=== PATIENT | male | born 1995 | race Two or more races ===

== ENCOUNTER 2019-10-18 21:05 | Emergency (ER) | payer MEDICAID ==
[~2019-10-18] VITALS: Ht 190.5 cm; Wt 114.7 kg
[~2019-10-18 21:05] MED LIST: DIVA-81 PO; HYDR50CA5 PO
[2019-10-18 21:21] VITALS: BP 131/80
--- NOTE | 2019-10-18 22:23 | NUR ---
pt said he needed a place to sleep for a couple of hours, unable to go to the [facility] "I was kicked out", pt is homeless, noncompliant with psych med for bipolar, paranoia, schizophrenia,
[2019-10-18] MEDS ORDERED: proCHLORperazine 10 MG/2 ml inj IM ONE (22:35)
[2019-10-18] MEDS ORDERED: SUMAtriptan succ. 6 MG/0.5ml vial SQ ONE (22:35)
[2019-10-18] MEDS ORDERED: ketorolac trometh inj. 60 MG/2 ML VIAL IM ONE (22:35)
[2019-10-18] MEDS ORDERED: acetaminophen 325mg tablet PO ONE (22:35)
--- NOTE | 2019-10-18 23:30 | NUR ---
pt escorted by security outside, pt wants to stay here and sleep, uncooperative with leaving
== END 2019-10-18 23:32 | disposition home or self-care (01) ==
LOC: ER 21:05
DX: R51 Headache (principal); F12.90 Cannabis use, unspecified, uncomplicated; R11.2 Nausea with vomiting, unspecified; Z59.0 Homelessness; Z72.89 Other problems related to lifestyle; Z88.8 Allergy status to other drugs, medicaments and biological substances; Z79.899 Other long term (current) drug therapy
CPT/HCPCS: 96372; 99284; J0780; J1885; J3030

== ENCOUNTER 2019-11-30 09:34 | Inpatient (IN) | payer MEDICAID ==
[~2019-11-30] VITALS: Ht 190.5 cm; Wt 137.6 kg
[2019-11-30] MEDS ORDERED: loperamide 2mg capsule PO PRN (11:40)
[2019-11-30] MEDS ORDERED: LORazepam 1 MG tablet PO PRN (11:40)
[2019-11-30] MEDS ORDERED: mag hydrox/Alum hydrox/simeth 30ml oral suspension PO PRN (11:40)
[2019-11-30] MEDS ORDERED: traZODone 50mg tablet PO PRN (11:40)
[2019-11-30] MEDS ORDERED: magnesium hydroxide 30ml (MOM) UD suspension PO PRN (11:40)
[2019-11-30] MEDS ORDERED: LORA2TAB96 PO (11:46)
[2019-11-30] MEDS ORDERED: PALI234D IM (11:46)
[2019-11-30] MEDS: NICOTINE POLACRILEX 2 MG LOZENGE BC PRN (12:32)
[2019-11-30] MEDS: LORazepam 1 MG tablet PO PRN ×2 (12:33→21:27)
--- NOTE | 2019-11-30 13:13 | NUR ---
Admission note: Pt admitted to [facility] for [facility] today at 1115 on a 5150 for gravely disabled. Pt has been unable to care for himself. He is unable to verbalize a viable plan for food, clothing, and longterm. Pt is responding to internal stimuli. Pt repeatedly comes to the [place] [facility] crisis unit begging for food with significant weight loss.. Pt unable to manage finances and is disheveled and unkempt. The county is seeking conservatorship and need his 5250 faxed to them at [phone] to start T-con paperwork. Pt has history of schizophrenia and bipolar..
[2019-11-30] MEDS: nicotine 21mg patch - 24 hr TD SCH (13:28)
[2019-11-30 14:22] VITALS: BP 130/78
[2019-11-30] MEDS ORDERED: diphenhydrAMINE 50 mg/ml inj ONE (14:29)
[2019-11-30] MEDS ORDERED: OLANZapine **IM** 10 mg inj. IM ONE ×2 (14:29→14:32)
[2019-11-30] MEDS ORDERED: LORazepam 2 mg/ml vial ONE (14:30)
--- NOTE | 2019-11-30 14:54 | NUR ---
Agitation: While gathering to the front door to escort pts to the patio, Tank started escalating himself. Attempted to deescalate pt but pt wants to leave and go to the library to "Smoke some weed." "Im claustraphobic." Explained to pt he can walk the halls or go to his large empty room. Pt attempted to walk out the door when security entered. Pt shouting and headed towards his room. Pt punched a hole in he hallway wall. Spoke with Dr Armstrong and gave pt IM Zyprexa 20mg. Pt accepted the shot to his R shoulder with no resistance.
[2019-11-30] MEDS: acetaminophen 325mg tablet PO PRN (15:46)
[2019-11-30] MEDS: traZODone 50mg tablet PO SCH (21:27)
[2019-11-30] MEDS: olanzapine 10mg tablet PO SCH (21:27)
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
[2019-12-01 07:03] LABS: HEMOGLOBIN A1C 5.3 % (4.5-6.2)
[2019-12-01 07:15] LABS: CHOL/HDL RATIO 3.5 (0.00-4.99); CHOLESTEROL 140 MG/DL (0-200); HDL CHOLESTEROL 40 MG/DL (35-60); LDL CHOLESTEROL 81 MG/DL (50-100); TRIGLYCERIDES 131 MG/DL (20-135)
[2019-12-01] MEDS: olanzapine 10mg tablet PO SCH ×2 (07:38→13:16)
[2019-12-01] MEDS: LORazepam 1 MG tablet PO PRN (07:39)
[2019-12-01 08:00] VITALS: BP 137/78
[2019-12-01] MEDS: nicotine 21mg patch - 24 hr TD SCH (08:00)
[2019-12-01 09:15] VITALS: BP 137/78
--- NOTE | 2019-12-01 10:00 | NUR ---
Group Therapy: Process Group This Clinicians goal for this process group were as follows: (1) Ask scaling questions about Patients current anxiety, depression, and irritability symptoms as a check-in. (2) Provide psychoeducation on differences between passive, passive-aggressive, assertive, and aggressive forms of communication. (3) Provide psychoeducation on fair fighting rules to illustrate principles of assertive communication. (4) Process Patients thoughts and reflections on this topic within the group milieu. Patient identified experiencing the following levels of anxiety, depression, and anger/irritability while present in the group milieu. Anxiety: 8.5/10 Depression: 7/10 Anger/irritability: .5/10 Patient was present at the beginning of the process group long enough to provide answers to his subjective levels of anxiety, depression, and anger/irritability. Patient was dressed in nondescript clothing that were appropriate within the milieu. Patient made comments about not wanting to be in group, very shortly after providing answers to his scaling questions about his symptoms. Patient presented as verbally intrusive, often speaking over, or interrupting this Clinician as he made comments. Patient left the room approximately 5 minutes after the start of the process group and did not return. Patient did not verbally contribute during the discussion of different kinds of communication. Keegan Ochoa MA, KAROL Addendum: 12/03/19 at 0823 by Keegan Ochoa SS Amended: Links added.
[2019-12-01] MEDS: NICOTINE POLACRILEX 2 MG LOZENGE BC PRN (10:02)
[2019-12-01] MEDS: acetaminophen 325mg tablet PO PRN (10:10)
[2019-12-01] MEDS ORDERED: LORazepam 1 MG tablet PO ONE (10:45)
[2019-12-01] MEDS ORDERED: carBAMazepine 100mg chewable tablet PO ONE (10:45)
[2019-12-01] MEDS: carBAMazepine 100mg chewable tablet PO SCH ×2 (11:02→17:30)
[2019-12-01] MEDS: LORazepam 1 MG tablet PO SCH ×2 (13:16→20:14)
[2019-12-01] MEDS: ibuprofen tablet 400 MG TABLET PO PRN (13:16)
--- NOTE | 2019-12-01 14:01 | NUR ---
Nursing Progress Note: Legal hold: 5150 Client on involuntary status for GD. Report received from Hannah GLOVER with use of SBAR. Why are they here: Pt admitted to [facility] for [facility] health today on a 5150 for gravely disabled. Pt has been unable to care for himself. He is unable to verbalize a viable plan for food, clothing, and correction. Pt is responding to internal stimuli. Pt repeatedly comes to the [facility] crisis unit begging for food with significant weight loss.. Pt unable to manage finances and is disheveled and unkempt. The county is seeking conservatorship and need his 5250 faxed to them at [phone] to start T-con paperwork. Pt has history of schizophrenia and bipolar.. Assessment What has happened this shift: Pt has been up and visible on the unit. Pt behaved hypomanic at times and angry at other times. Pt dancing wildly in the hallway. Pt very quick to agitation, primarily when someone sets a limit with him. A better strategy has been distraction. Pt at times would have a verbal outburst b/c he wants to get ont of here. Allowing to vent and providing physical touch (patting on the back) helps. Pt did take medications as prescribed. Pt has had 6mg Ativan and 20 zyprexa by 1400. Pt remains extremely labile and volatile. S/I, H/I: Denies A/VH: Hears voices and sees his parents. Sleep: Asleep at this time ADL's: may need encouragement Group attendance: no Were meds taken: Yes Any med S/E no Mental Status Exam Appearance: Disheveled Eye contact: intense at times Behavior: Some agitation Speech: Clear Mood: Anxious Affect: Anxious Thought process: Disorganized Thought Content: Not clear Cognition: May have some deficits Insight Poor Judgment: Poor Interventions PRN's used: Ativan, Zyprexa, Tylenol, ibuprofen Therapeutic interventions: 1:1 therapeutic assessment, medication administration, monitored for change in behavior, provided active listening, positive feedback, reassurance, encouragement Q15 minute safety checks. Restraints/seclusion/emergency medication: N/A Justification of Continued Inpatient Treatment: Pt need a safe and supportive environment to interrupt current crisis. Gravely disabled may require placement. Addendum: 12/01/19 at 1501 by Artie Castro RN Pt was on the phone with his old employment evaluator/case manager and he was told they are pursuing conservatorship and placement at [facility] and he became super upset and verbally yelling and crying for about 20 minutes. Pt given food and attention and eventually calmed down.
[2019-12-01 19:21] VITALS: BP 136/73
[2019-12-01] MEDS: traZODone 50mg tablet PO SCH (20:14)
--- NOTE | 2019-12-02 00:03 | NUR ---
Nursing Progress Note: Legal hold: 5150 Client on involuntary status for GD. Report received from Hannah GLOVER with use of SBAR. Why are they here: Pt admitted to [facility] for Behavioral health today on a 5150 for gravely disabled. Pt has been unable to care for himself. He is unable to verbalize a viable plan for food, clothing, and care home. Pt is responding to internal stimuli. Pt repeatedly comes to the [facility] crisis unit begging for food with significant weight loss.. Pt unable to manage finances and is disheveled and unkempt. The county is seeking conservatorship and need his 5250 faxed to them at [phone] to start T-con paperwork. Pt has history of schizophrenia and bipolar.. Assessment What has happened this shift: Pt was resting in bed at change of shift. Pt woke for evening snack and took scheduled meds. Pt denies s/i, denies a/vh and states "I just want to get out of here." S/I, H/I: Denies A/VH: denies Sleep: sleeping most of the shift ADL's: may need encouragement Group attendance: no Were meds taken: Yes Any med S/E no Mental Status Exam Appearance: Disheveled Eye contact: poor Behavior: remains in bed duration of shift, polite and cooperative during med pass Speech: Clear Mood: Anxious Affect: Anxious Thought process: Disorganized Thought Content: Not clear Cognition: impaired Insight Poor Judgment: Poor Interventions PRN's used: trazadone Therapeutic interventions: 1:1 therapeutic assessment, medication administration, monitored for change in behavior, provided active listening, positive feedback, reassurance, encouragement Q15 minute safety checks. Restraints/seclusion/emergency medication: N/A Justification of Continued Inpatient Treatment: Pt need a safe and supportive environment to interrupt current crisis. Gravely disabled may require placement.
[2019-12-02] MEDS: LORazepam 1 MG tablet PO SCH ×3 (07:20→20:50)
[2019-12-02] MEDS: olanzapine 10mg tablet PO SCH ×2 (07:20→12:03)
[2019-12-02] MEDS: carBAMazepine 100mg chewable tablet PO SCH ×3 (07:21→17:14)
[2019-12-02] MEDS: nicotine 21mg patch - 24 hr TD SCH (07:23)
[2019-12-02] MEDS: acetaminophen 325mg tablet PO PRN (07:43)
[2019-12-02 08:36] VITALS: BP 136/81
[2019-12-02] MEDS: NICOTINE POLACRILEX 2 MG LOZENGE BC PRN (13:06)
--- NOTE | 2019-12-02 14:58 | NUR ---
Nursing Progress Note: [facility] Legal hold: 5150 Client on involuntary status for GD. Report received from Hannah GLOVER with use of SBAR. Why are they here: Pt admitted to [facility] for Behavioral health today on a 5150 for gravely disabled. Pt has been unable to care for himself. He is unable to verbalize a viable plan for food, clothing, and jail. Pt is responding to internal stimuli. Pt repeatedly comes to the [facility] crisis unit begging for food with significant weight loss.. Pt unable to manage finances and is disheveled and unkempt. The county is seeking conservatorship and need his 5250 faxed to them at [phone] to start T-con paperwork. Pt has history of schizophrenia and bipolar.. Assessment What has happened this shift: Pt was on the unit and presented as loud and intrusive. Client was redirected and took his medications. Client had issues with another client on the unit this morning which required a call to Security. Client has no PRN coverage for behavioral outbursts so he was given intense 1:1 until situation was over. Client is currently resting in his bed (0923) and he will be watched closely as he is prone to outbursts with little or no warning. Client has required frequent redirection this shift for loud and intrusive behaviors. He will redirect with effort. His behaviors this shift have been unpredictable and intimidating to his peers. S/I, H/I: Denies A/VH: denies Sleep: sleeping at times this shift. ADL's: may need encouragement Group attendance: no Were meds taken: Yes Any med S/E no Mental Status Exam Appearance: Disheveled Eye contact: poor Behavior: loud, intrusive with very little insight displayed. Speech: Clear Mood: Anxious Affect: Anxious Thought process: Disorganized Thought Content: Not clear Cognition: impaired Insight Poor Judgment: Poor Interventions PRN's used: Nicotine Therapeutic interventions: 1:1 therapeutic assessment, medication administration, monitored for change in behavior, provided active listening, positive feedback, reassurance, encouragement Q15 minute safety checks. Restraints/seclusion/emergency medication: N/A Justification of Continued Inpatient Treatment: Pt need a safe and supportive environment to interrupt current crisis. Gravely disabled may require placement.
[2019-12-02 19:44] VITALS: BP 122/53
[2019-12-02] MEDS: traZODone 50mg tablet PO SCH (20:50)
--- NOTE | 2019-12-02 22:07 | NUR ---
Nursing Progress Note: [facility] Legal hold: 5150 Client on involuntary status for GD. Report received from Gelacio GLOVER with use of SBAR. Why are they here: Pt admitted to [facility] for Behavioral health today on a 5150 for gravely disabled. Pt has been unable to care for himself. He is unable to verbalize a viable plan for food, clothing, and long term. Pt is responding to internal stimuli. Pt repeatedly comes to the [facility] crisis unit begging for food with significant weight loss.. Pt unable to manage finances and is disheveled and unkempt. The county is seeking [employer] and need his 5250 faxed to them at [phone] to start T-con paperwork. Pt has history of schizophrenia and bipolar.. Assessment What has happened this shift: Pt was up walking in the hallway and listening to music at change of shift. He denies s/i, denies h/i, and declined a shower. went to his room and fell asleep. Pt was woke for his evening meds and he took them and grimaced in pain and yelled out "my tooth!" pt pointed to his upper front tooth on the left side of his mouth and states cold water hurts his tooth. Asked patient for his nicotine patch and he stated he threw it in the trash. Asked pt if I could check his back and he yelled "Get out leave me alone!" and went back to sleep. S/I, H/I: Denies A/VH: denies Sleep: sleeping most of this shift ADL's: may need encouragement Group attendance: no Were meds taken: Yes Any med S/E no Mental Status Exam Appearance: Disheveled, malodorous, declined a shower Eye contact: poor Behavior: loud, intrusive with very little insight displayed. Speech: Clear Mood: Anxious Affect: Anxious Thought process: Disorganized Thought Content: Not clear Cognition: impaired Insight Poor Judgment: Poor Interventions PRN's used: Nicotine Therapeutic interventions: 1:1 therapeutic assessment, medication administration, monitored for change in behavior, provided active listening, positive feedback, reassurance, encouragement Q15 minute safety checks. Restraints/seclusion/emergency medication: N/A Justification of Continued Inpatient Treatment: Pt need a safe and supportive environment to interrupt current crisis. Gravely disabled may require placement
[2019-12-03] MEDS: olanzapine 10mg tablet PO SCH ×3 (07:28→21:32)
[2019-12-03] MEDS: nicotine 21mg patch - 24 hr TD SCH (07:28)
[2019-12-03] MEDS: LORazepam 1 MG tablet PO SCH ×3 (07:28→20:06)
[2019-12-03 07:57] VITALS: BP 136/79
[2019-12-03] MEDS: NICOTINE POLACRILEX 2 MG LOZENGE BC PRN ×2 (08:05→12:06)
[2019-12-03] MEDS: carBAMazepine 100mg chewable tablet PO SCH ×3 (08:05→18:13)
[2019-12-03] MEDS: ibuprofen tablet 400 MG TABLET PO PRN (08:05)
[2019-12-03] MEDS ORDERED: OLANZapine **IM** 10 mg inj. IM ONE ×3 (08:15→14:20)
[2019-12-03] MEDS ORDERED: LORazepam 2 mg/ml vial ONE ×3 (08:16→14:04)
--- NOTE | 2019-12-03 08:20 | NUR ---
1:1-Emotional De-escalation Presenting Issues: Pt became loud and emotionally agitated in hallway, got into verbal [id number] w/another pt and staff, staff directed pt to his room where he continued his emotional & verbal outburst. Interventions: SS met w/pt at the doorway in his room, pt was curled up in a corner in his room crying loudly. SS joined pt on the floor and provided an opportunity for him to verbalize his distress, engaged pt in deep breathing exercise to facilitate return to a calm emotional state. Pt was able to take 8 breaths and asked to walk, left room and went to the dining lee and sat by himself. Plan: SS will continue to provide 1:1 support to facilitate emotional regulation. Sheridan Obrien LCSW Addendum: 12/03/19 at 0854 by Sheridan DORADO Amended: Links added.
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
[2019-12-03] MEDS ORDERED: haloperidol lactate 5mg/ml inj ONE (13:56)
[2019-12-03] MEDS ORDERED: benztropine 1 mg/ml 2ml ampule ONE ×2 (13:57→14:00)
[2019-12-03] MEDS ORDERED: diphenhydrAMINE 50 mg/ml inj ONE (14:04)
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
[2019-12-03] MEDS ORDERED: diphenhydrAMINE 50 mg/ml inj IM ONE (14:20)
[2019-12-03] MEDS ORDERED: LORazepam 2 mg/ml vial IM ONE (14:20)
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
--- NOTE | 2019-12-03 18:31 | NUR ---
correction: Pt. is now on a 5250.
[2019-12-03 20:00] VITALS: BP 133/85
[2019-12-03] MEDS: traZODone 50mg tablet PO SCH (20:05)
--- NOTE | 2019-12-03 22:12 | NUR ---
Nursing Progress Note: [facility] Legal hold: 5150 Client on involuntary status for GD. Report received from Kasie GLOVER with use of SBAR. Why are they here: Pt admitted to [place] for Behavioral health today on a 5150 for gravely disabled. Pt has been unable to care for himself. He is unable to verbalize a viable plan for food, clothing, and custodial. Pt is responding to internal stimuli. Pt repeatedly comes to the [place] crisis unit begging for food with significant weight loss.. Pt unable to manage finances and is disheveled and unkempt. The county is seeking [employer] and need his 5250 faxed to them at [phone] to start T-con paperwork. Pt has history of schizophrenia and bipolar.. Assessment What has happened this shift: Pt was in his room resting at change of shift, he came out of his room and got a snack. Pt was in his room eating salad with his hands from his dinner meal and his hands and arms were covered in salad dressing. Gave patient eating utensils and told him to use the fork and he whined "but I'm so hungry!" Pt finished eating and asked for more food. Pts clothes were soiled and he was offered a change of clothing. He attempted to drink his water and spilled water all over himself and began screaming loudly. Asked patient to lower his voice and provided patient with another set of dry clothing, and clean blankets as he had food crumbs and containers left in his bed. Asked patient about his day and he stated "I was sad, everyone was mean to me, I dont want to talk about it, I just want my family." Pt took his evening meds and went to bed saying "Im so tired I just want to sleep." Pt has been refusing to take off his nicotine patch stating he threw it in the garbage. I did not locate a patch in the garbage or see one on the patient. S/I, H/I: Denies A/VH: denies Sleep: sleeping most of the shift, see sleep hours ADL's: Independent with prompting. Pt need prompting to use eating utensils and change clothing. Group attendance: no Were meds taken: Yes Any med S/E: pt is tired Mental Status Exam Appearance: Disheveled Eye contact: poor Behavior: Poor boundaries, shouting out, labile and impulsive Speech: Clear Mood: Anxious, "sad" Affect: bizzare, labile Thought process: Circumstantial, delusional Thought Content: Focused on food and going home to his family Cognition: A&Ox2 Insight Poor Judgment: Poor Interventions PRN's used: trazadone Therapeutic interventions: 1:1 therapeutic assessment, medication administration, monitored for change in behavior, provided active listening, positive feedback, reassurance, encouragement Q15 minute safety checks. Restraints/seclusion/emergency medication: None Justification of Continued Inpatient Treatment: Pt need a safe and supportive environment to interrupt current crisis. Gravely disabled may require placement. Addendum: 12/04/19 at 0407 by Alyssa Pride RN Pt woke approx 3:30 am and had been incontinent of stool. Pt requested to take a shower and took a shower and was given clean clothing. Pt came to the nurses station and stated "im tired I'm going back to bed and went back to his room to sleep.
[2019-12-04] MEDS: NICOTINE POLACRILEX 2 MG LOZENGE BC PRN (05:00)
[2019-12-04] MEDS: ibuprofen tablet 400 MG TABLET PO PRN (06:37)
[2019-12-04] MEDS: LORazepam 1 MG tablet PO SCH ×3 (07:53→23:56)
[2019-12-04] MEDS: acetaminophen 325mg tablet PO PRN (07:54)
[2019-12-04] MEDS: olanzapine 10mg tablet PO SCH ×3 (07:55→23:55)
[2019-12-04] MEDS: nicotine 21mg patch - 24 hr TD SCH (07:58)
[2019-12-04 08:00] VITALS: BP 129/76
[2019-12-04] MEDS ORDERED: carBAMazepine 100mg chewable tablet PO SCH ×2 (08:30→12:30)
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
[2019-12-04] MEDS ORDERED: quetiapine 100mg tablet PO ONE (11:05)
[2019-12-04] MEDS: quetiapine 100mg tablet PO SCH ×3 (12:13→23:56)
[2019-12-04] MEDS: carBAMazepine 100mg chewable tablet PO SCH ×2 (12:14→17:52)
[2019-12-04] MEDS ORDERED: OLANZapine **IM** 10 mg inj. IM STA (12:41)
[2019-12-04] MEDS ORDERED: diphenhydrAMINE 50 mg/ml inj IM ONE (12:45)
[2019-12-04] MEDS ORDERED: LORazepam 2 mg/ml vial IM ONE (12:45)
--- NOTE | 2019-12-04 13:17 | NUR ---
5 DAY NOTICE Received 5 day notice via email from [facility] Guardian. Faxed it back to them once Nani served it to him. Phone# [phone] Fax# [phone] KAROL Ortiz
[2019-12-04] MEDS ORDERED: OLANZapine 2.5MG tablet PO ONE (15:10)
[2019-12-04] MEDS ORDERED: diphenhydrAMINE 25mg capsule PO ONE (15:10)
[2019-12-04] MEDS ORDERED: LORazepam 1 MG tablet PO ONE (15:10)
[2019-12-04] MEDS ORDERED: diphenhydrAMINE 50 mg/ml inj IM PRN (16:30)
[2019-12-04] MEDS ORDERED: haloperidol lactate 5mg/ml inj IM PRN (17:00)
[2019-12-04] MEDS ORDERED: benztropine 1 mg/ml 2ml ampule IM PRN (17:00)
--- NOTE | 2019-12-04 17:00 | NUR ---
ALLERGY LIST CHANGE: RN spoke with pt.'s sister who said that the pt. becomes "shaky" from the Haldol but it is not life threatening. RN spoke with pt.'s provider RUPA Suh, it was agreed to remove Haldol allergy and start pt. on Haldol with Cogentin for akathisia.
[2019-12-04] MEDS: divalproex sodium 500mg tablet.DR PO SCH (17:06)
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
--- NOTE | 2019-12-04 18:12 | NUR ---
PT.'S SISTER IS GOOD CONTACT WHEN PT. HAS OUTBURST: JV BRIGHT: [phone].
[2019-12-04] MEDS: traZODone 50mg tablet PO SCH (23:56)
--- NOTE | 2019-12-05 04:38 | NUR ---
Nursing Progress Note: [facility] Legal hold: 5250 Client on involuntary status for GD. Report received from Kasie GLOVER with use of SBAR. Why are they here: Pt admitted to [place] for Behavioral health today on a 5150 for gravely disabled. Pt has been unable to care for himself. He is unable to verbalize a viable plan for food, clothing, and nursing home. Pt is responding to internal stimuli. Pt repeatedly comes to the [place] crisis unit begging for food with significant weight loss.. Pt unable to manage finances and is disheveled and unkempt. The county is seeking conservatorship and need his 5250 faxed to them at [phone] to start T-con paperwork. Pt has history of schizophrenia and bipolar. Assessment What has happened this shift: Pt is asleep at shift change, and remains asleep for most of the shift. He occasionally wakes up and requests food and drinks which is given to him. Pt throws food wrappers and cups on the floor and does not clean up at all. Pt is medication compliant. He is easily frustrated when awake, and demanding. Pt seems to respond well to medical writer when a soft voice is used. Pt says please and thank you when asking for things. He wakes up around 0430, walks the hallway unsteady and yells loudly and states he wants to go home. Pt then approaches the hallway bathroom which is locked and tries to open it, then hits the door when it won't open. Process Engineering Technician redirects pt to his bedroom bathroom. Writers informs the patient that he cannot hit any doors. Pt states his tooth hurts, tylenol given, he lays back down and is given a warm blanket. Pt encouraged to try to stay in bed because of the medications he has taken. S/I, H/I: Denies A/VH: denies Sleep: see sleep hours ADL's: Independent with prompting. Pt need prompting to use eating utensils and change clothing. Group attendance: no Were meds taken: Yes Any med S/E: slight sedation Mental Status Exam Appearance: Disheveled Eye contact: poor Behavior: sleeps most of shift, but yells when awake Speech: Clear Mood: upset when awake Affect: bizzare, labile Thought process: Circumstantial, delusional Thought Content: Focused on food and going home to his family Cognition: A&Ox2 Insight Poor Judgment: Poor Interventions PRN's used: tylenol Therapeutic interventions: 1:1 therapeutic assessment, medication administration, monitored for change in behavior, provided active listening, positive feedback, reassurance, encouragement Q15 minute safety checks. Restraints/seclusion/emergency medication: None Justification of Continued Inpatient Treatment: Pt need a safe and supportive environment to interrupt current crisis. Gravely disabled may require placement.
[2019-12-05] MEDS: acetaminophen 325mg tablet PO PRN ×2 (05:16→18:15)
--- NOTE | 2019-12-05 07:15 | NUR ---
Pt. yelling, "I want to leave! I don't want to be conserved!" Pt. posturing and walking towards this RN in threatening manner, pt. informed to go back to room but not redirectable. Security called and pt. walked back to his room. Pt. then proceeded to punch the wall and shouting, "I want out!" RN called pt.'s sister to attempt to deescalate pt.. Pt. yelled into the phone, "Why did you conserve me!?" Pt. then hung up the phone. Pt. given AM medications with PRN Haldol 5mg and Benadryl 50mg. Pt. listening to headphones a laying on bed.
[2019-12-05] MEDS: LORazepam 1 MG tablet PO SCH ×3 (07:21→20:26)
[2019-12-05] MEDS: olanzapine 10mg tablet PO SCH ×2 (07:21→12:39)
[2019-12-05] MEDS: quetiapine 100mg tablet PO SCH ×4 (07:21→20:25)
[2019-12-05] MEDS: divalproex sodium 500mg tablet.DR PO SCH ×2 (07:33→16:43)
[2019-12-05] MEDS: carBAMazepine 100mg chewable tablet PO SCH ×3 (07:33→16:44)
[2019-12-05] MEDS: haloperidol 5mg tablet PO PRN ×2 (07:35→16:15)
[2019-12-05] MEDS: diphenhydrAMINE 25mg capsule PO PRN (07:35)
[2019-12-05 08:00] VITALS: BP 115/72
[2019-12-05] MEDS: nicotine 21mg patch - 24 hr TD SCH (08:00)
--- NOTE | 2019-12-05 09:13 | NUR ---
Initial: Pt admit with bipolar disorder. Currently on a regular diet with average 75-100% PO intake while receiving double protein TID meeting nutrient needs. LBM 12/03. No edema or wounds. No nutrition diagnosis at this time. Will continue to follow. Recommendations: 1) Continue regular diet 2) Double eggs q breakfast, double meat BIDLD per diet order 3) Bowel care PRN 4) Scaled weights per rx Addendum: 12/05/19 at [address] Amended: Links added.
[2019-12-05] MEDS: NICOTINE POLACRILEX 2 MG LOZENGE BC PRN (15:45)
[2019-12-05] MEDS: benztropine 1mg tablet PO PRN (16:15)
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
--- NOTE | 2019-12-05 18:10 | NUR ---
Pt. became agitated, stating, "I'm out of here!" began hitting the foot board of the bed and then punching the window. Security was called and pt. agreed to IM injection of Haldol 10mg and Cogentin 1mg in left gluteal. Pt. then became tearful stating, "I've been this way my entire life". Then shouted, "I just want out of here!"
[2019-12-05] MEDS ORDERED: haloperidol lactate 5mg/ml inj IM ONE (18:15)
[2019-12-05] MEDS ORDERED: benztropine 1 mg/ml 2ml ampule IM ONE (18:15)
[2019-12-05 19:00] VITALS: BP 130/70
[2019-12-05] MEDS: traZODone 50mg tablet PO SCH (20:24)
[2019-12-05] MEDS: haloperidol 5mg tablet PO SCH (20:25)
[2019-12-05] MEDS: OLANZAPINE 5 MG TABLET PO SCH (21:00)
--- NOTE | 2019-12-06 01:48 | NUR ---
Nursing Progress Note: Legal hold: T-CON Client on involuntary status for GD. Report received from FRANCISCO J Ferro with use of SBAR. Why are they here: Pt admitted to [facility] for Behavioral health today on a 5150 for gravely disabled. Pt has been unable to care for himself. He is unable to verbalize a viable plan for food, clothing, and senior living. Pt is responding to internal stimuli. Pt repeatedly comes to the [facility] crisis unit begging for food with significant weight loss.. Pt unable to manage finances and is disheveled and unkempt. The county is seeking conservatorship and need his 5250 faxed to them at [phone] to start T-con paperwork. Pt has history of schizophrenia and bipolar.. Assessment What has happened this shift: Patient is labile and yelling following shift change. This creative services writer noted two other patients exhibiting laughter at this patient. The patients were directed away from the patient. This creative services writer met with patient in his room. 1:1 Patient is reassured he is in a safe place. Patient calms when spoken to in a quiet manner. Patient consumed juice and snacks. Labile in the first hour of the shift this patient gradually calmed. Patient responding to internal stimuli. Patient looks disheveled. S/I, H/I: Denies A/VH: Denies but appears to be responding to internal stimuli. Sleep: Short naps in the AM, pt. appeared to be fighting sleep. ADL's: Independent with prompting. Group attendance: No. Were meds taken: Yes, medication compliant. Any med S/E: None noted. Mental Status Exam Appearance: Disheveled. Eye contact: Poor. Behavior: Yelling after shift change. Patient then becalm calm and rested. Speech: Clear, loud at times, then normalization. Mood: Labile, yelling, then calming. Affect: Congruent with mood. Thought process: Circumstantial, perseverative, thought blocking. Thought Content: Angry at other patients. Cognition: Oriented to person and place. Insight Poor. Judgment: Poor. Interventions PRN's used: None on NOC shift as of the time of this writing. Therapeutic interventions: 1:1 therapeutic assessment, medication administration, monitored for change in behavior, provided active listening, positive feedback, reassurance, encouragement Q15 minute safety checks. Justification of Continued Inpatient Treatment: Pt need a safe and supportive environment to interrupt current crisis. Gravely disabled and is now a T-CON.
[2019-12-06] MEDS: LORazepam 1 MG tablet PO SCH ×3 (07:24→20:29)
[2019-12-06] MEDS: haloperidol 5mg tablet PO SCH ×3 (07:24→20:29)
[2019-12-06] MEDS: divalproex sodium 500mg tablet.DR PO SCH ×3 (07:24→17:04)
[2019-12-06] MEDS: OLANZAPINE 5 MG TABLET PO SCH ×2 (07:24→12:15)
[2019-12-06] MEDS: quetiapine 100mg tablet PO SCH ×4 (07:24→20:29)
[2019-12-06] MEDS: nicotine 21mg patch - 24 hr TD SCH (07:26)
[2019-12-06] MEDS: carBAMazepine 100mg chewable tablet PO SCH ×3 (07:54→17:04)
[2019-12-06 08:00] VITALS: BP 135/86
[2019-12-06 08:52] LABS: BASOPHILS % (AUTO) 0.3 % (0-1); EOSINOPHILS # (AUTO) 0.2 X10'3 (0-0.9); EOSINOPHILS % (AUTO) 1.7 % (0-6); HEMATOCRIT 42.6 % (42.0-52.0); HEMOGLOBIN 14.2 g/dl (14.0-17.9); LYMPHOCYTES # (AUTO) 3.3 X10'3 (1.1-4.8); LYMPHOCYTES % (AUTO) 27.2 % (21-51); MEAN CORPUSCULAR HEMOGLOBIN 31.1 PG (27.0-31.0); MEAN CORPUSCULAR HGB CONC 33.4 g/dL (33.0-36.5); MEAN PLATELET VOLUME 7.2 FL (7.4-10.4); MONOCYTES # (AUTO) 0.6 X10'3 (0-0.9); NEUTROPHILS # (AUTO) 8.1 X10'3 (1.8-7.7); NEUTROPHILS % (AUTO) 65.8 % (42-75); PLATELET COUNT 303 X10'3 (140-440); RED BLOOD COUNT 4.58 X10'6 (4.70-6.10); RED CELL DISTRIBUTION WIDTH 14.4 % (11.5-14.5); WHITE BLOOD COUNT 12.3 X10'3 (4.5-11.0)
[2019-12-06 09:48] LABS: PLATELET ESTIMATE NORMAL; TOTAL CELLS COUNTED 100; TOXIC GRANULATION 1+
--- NOTE | 2019-12-06 15:11 | NUR ---
Nursing Progress Note: [facility] Legal hold: T-CON Client on involuntary status for GD. Report received from Yanni Dumont RN with use of SBAR. Why are they here: Pt admitted to [place] for Behavioral health today on a 5150 for gravely disabled. Pt has been unable to care for himself. He is unable to verbalize a viable plan for food, clothing, and long-term. Pt is responding to internal stimuli. Pt repeatedly comes to the [place] crisis unit begging for food with significant weight loss.. Pt unable to manage finances and is disheveled and unkempt. The county is seeking conservatorship and need his 5250 faxed to them at [phone] to start T-con paperwork. Pt has history of schizophrenia and bipolar.. Assessment What has happened this shift: Patient was awake and on a LOS when shift changed this am. Client was having verbal outbursts but was redirectable. He was compliant with medications and assessment and he came to Group room for breakfast. After breakfast, client returned to his room where he is currently resting with LOS in place (1110 hours). Client got up, showered and has been visible on the unit with appropriate behaviors noted. Client still prone to spontaneous outbursts and frequently can be heard yelling, I just want to go home. LOS remains in place for unit safety and client has had no physical episodes as of this writing at 1412 hours. Client is still resting and in no apparent distress at 1510 hours. LOS remains in place. S/I, H/I: Denies A/VH: Denies but appears to be responding to internal stimuli. Sleep: rested frequently this shift. ADL's: Independent with prompting. Group attendance: No. Were meds taken: Yes Any med S/E: None noted. Mental Status Exam Appearance: Disheveled. Eye contact: Poor. Behavior: Labile Speech: Clear, loud at times, then normalization. Mood: Labile, yelling, then calming. Affect: Congruent with mood. Thought process: Circumstantial, perseverative, thought blocking. Thought Content: Angry at other patients. Cognition: Oriented to person and place. Insight Poor. Judgment: Poor. Interventions PRN's used: None on NOC shift as of the time of this writing. Therapeutic interventions: 1:1 therapeutic assessment, medication administration, monitored for change in behavior, provided active listening, positive feedback, reassurance, encouragement Q15 minute safety checks. Justification of Continued Inpatient Treatment: Pt need a safe and supportive environment to interrupt current crisis. Gravely disabled and is now a T-CON.
[2019-12-06 20:00] VITALS: BP 136/93
[2019-12-06] MEDS: traZODone 50mg tablet PO SCH (20:29)
[2019-12-07] MEDS: LORazepam 1 MG tablet PO PRN ×2 (02:18→10:11)
[2019-12-07] MEDS: diphenhydrAMINE 25mg capsule PO PRN ×2 (02:18→16:11)
--- NOTE | 2019-12-07 02:53 | NUR ---
Nursing Progress Note: Legal hold: T-CON Client on involuntary status for GD. Report received from FRANCISCO J Ferro with use of SBAR. Why are they here: Pt admitted to [place] for Behavioral health today on a 5150 for gravely disabled. Pt has been unable to care for himself. He is unable to verbalize a viable plan for food, clothing, and fci. Pt is responding to internal stimuli. Pt repeatedly comes to the [place] crisis unit begging for food with significant weight loss.. Pt unable to manage finances and is disheveled and unkempt. The county is seeking [employer] and need his 5250 faxed to them at [phone] to start T-con paperwork. Pt has history of schizophrenia and bipolar.. Assessment What has happened this shift: The patient was sleeping at shift change. He refused to wake for 1:1, but woke about an hour later and got agitated that he missed dinner, started cussing, yelling, and stomped around, until a dinner tray was found for him. He immediately calmed, took the tray and ate. He continues to be LOS for safety, as he continues to be angry, persecutive, and volatile. The patient slept all evening, but later woke and asked very nice and respectfully for help getting back to sleep. He was given Ativan and Benadryl, and soon was back sleeping. S/I, H/I: Denies A/VH: Denies, but appears to RIS. Sleep: See sleep assessment. ADL's: Independent with prompting. Group attendance: No. Were meds taken: Yes. Any med S/E: None reported or observed. Mental Status Exam Appearance: Large, disheveled man wearing green unit scrubs. Eye contact: Poor. Behavior: Sleeping, angry, child-like, anxious. Speech: Clear, loud at times, then normal. Mood: Labile. Affect: Congruent with mood. Thought process: Circumstantial, perseverative, thought blocking. Thought Content: Angry over his situation. Cognition: Oriented to person and place. Insight Poor. Judgment: Poor. Interventions PRN's used: Ativan, Benadryl Therapeutic interventions: 1:1 therapeutic assessment, medication administration, monitored for change in behavior, provided active listening, positive feedback, reassurance, encouragement Q15 minute safety checks. Justification of Continued Inpatient Treatment: Pt need a safe and supportive environment to interrupt current crisis. Gravely disabled and is now a T-CON.
[2019-12-07 07:44] VITALS: BP 133/80
[2019-12-07] MEDS: nicotine 21mg patch - 24 hr TD SCH ×2 (08:00→08:04)
[2019-12-07] MEDS: quetiapine 100mg tablet PO SCH ×4 (08:03→21:36)
[2019-12-07] MEDS: divalproex sodium 500mg tablet.DR PO SCH ×3 (08:03→17:56)
[2019-12-07] MEDS: LORazepam 1 MG tablet PO SCH ×3 (08:03→21:35)
[2019-12-07] MEDS: haloperidol 5mg tablet PO SCH ×2 (08:04→13:57)
[2019-12-07] MEDS ORDERED: quetiapine 100mg tablet PO ONE (10:10)
--- NOTE | 2019-12-07 13:39 | NUR ---
PUBLIC GUARDIAN Provided med list to [facility] Public Guardian over the phone at their request for conservatorship evaluation purposes. KAROL Ortiz
[2019-12-07] MEDS: carBAMazepine 100mg chewable tablet PO SCH ×2 (13:58→17:56)
[2019-12-07] MEDS: ibuprofen tablet 400 MG TABLET PO PRN (14:23)
[2019-12-07] MEDS: NICOTINE POLACRILEX 2 MG LOZENGE BC PRN (15:48)
--- NOTE | 2019-12-07 16:28 | NUR ---
Nursing Progress Note: [facility] Legal hold: T-CON Client on involuntary status for GD. Report received from RN with use of SBAR. Why are they here: Pt admitted to [place] for Behavioral health today on a 5150 for gravely disabled. Pt has been unable to care for himself. He is unable to verbalize a viable plan for food, clothing, and correction. Pt is responding to internal stimuli. Pt repeatedly comes to the [place] crisis unit begging for food with significant weight loss.. Pt unable to manage finances and is disheveled and unkempt. The county is seeking conservatorship and need his 5250 faxed to them at [phone] to start T-con paperwork. Pt has history of schizophrenia and bipolar.. Assessment What has happened this shift: Patient was asleep at change of shift and up soon after. Patient high fived RN when they crossed in the lee. Patient got upset and cried several times today. Patient postured toward RN and RN felt threatened and called Security. Patient calmed down in his room. Patient went to court today for his 5250/TCon. Patient cried, cussed and pushed the table forward. Patient went to his room and RN gave him oral meds. Patient calmed down after yelling at his Patient's Rights Advocate on the phone. Patient does not appear to have capacity to gain knowledge. Patient has very poor insight. S/I, H/I: Denies A/VH: Denies Sleep: Several short naps today ADL's: Independent with prompting. Group attendance: None today Were meds taken: Yes Any med S/E: None noted. Mental Status Exam Appearance: Disheveled. Eye contact: Poor. Behavior: Labile Speech: Clear, loud at times, then normalization. Mood: Labile, yelling, then calming. Affect: Congruent with mood. Thought process: Circumstantial, perseverative, thought blocking. Thought Content: Angry. Does not want to be here. Cognition: Oriented to person and place. Insight Poor. Judgment: Poor. Interventions PRN's used: Seroquel 200 mg 1 X 1. Ativan 2 mg PO and Benadryl 50 mg PO (nicotine lozenge). Therapeutic interventions: 1:1 therapeutic assessment, medication administration, monitored for change in behavior, provided active listening, positive feedback, reassurance, encouragement Q15 minute safety checks. Justification of Continued Inpatient Treatment: Pt need a safe and supportive environment to interrupt current crisis. Gravely disabled and is now a T-CON.
[2019-12-07 20:54] VITALS: BP 148/80
[2019-12-07] MEDS: traZODone 50mg tablet PO SCH (21:34)
--- NOTE | 2019-12-08 03:36 | NUR ---
Nursing Progress Note: Legal hold: T-CON Client on involuntary status for GD. Report received from FRANCISCO J Ferro with use of SBAR. Why are they here: [facility] 5150 for gravely disabled. Pt has been unable to care for himself. He is unable to verbalize a viable plan for food, clothing, and fci. Pt is responding to internal stimuli. Pt repeatedly comes to the [place] crisis unit begging for food with significant weight loss.. Pt unable to manage finances and is disheveled and unkempt. The county is seeking conservatorship and need his 5250 faxed to them at [phone] to start T-con paperwork. Pt has history of schizophrenia and bipolar.. Assessment What has happened this shift: The patient was sleeping at shift change. He was not woken because he has slept poorly since being here. The patient woke on his own ~2130, and was fed. He was given his medication, then he went back to sleep. He continues to be LOS for safety. The patient continues to sleep at this time. S/I, H/I: Denies A/VH: Denies. Sleep: See sleep assessment. ADL's: Independent with prompting. Group attendance: No. Were meds taken: Yes. Any med S/E: None reported or observed. Mental Status Exam Appearance: Large, disheveled man wearing green unit scrubs. Eye contact: Poor. Behavior: Sleeping, angry, child-like, anxious. Speech: Clear, loud at times, then normal. Mood: Labile. Affect: Congruent with mood. Thought process: Circumstantial, perseverative, thought blocking. Thought Content: Angry over his situation. Cognition: Oriented to person and place. Insight Poor. Judgment: Poor. Interventions PRN's used: Therapeutic interventions: 1:1 therapeutic assessment, medication administration, monitored for change in behavior, provided active listening, positive feedback, reassurance, encouragement Q15 minute safety checks. Justification of Continued Inpatient Treatment: Pt need a safe and supportive environment to interrupt current crisis. Gravely disabled and is now a T-CON.
[2019-12-08] MEDS: LORazepam 1 MG tablet PO PRN ×2 (05:45→16:36)
[2019-12-08] MEDS: quetiapine 100mg tablet PO SCH ×3 (07:12→22:33)
[2019-12-08] MEDS: divalproex sod 250mg ER (24-hour) tablet PO SCH ×3 (07:12→17:07)
[2019-12-08] MEDS: LORazepam 1 MG tablet PO SCH ×3 (07:14→22:33)
[2019-12-08] MEDS: nicotine 21mg patch - 24 hr TD SCH (07:30)
[2019-12-08] MEDS: NICOTINE POLACRILEX 2 MG LOZENGE BC PRN (07:44)
[2019-12-08 08:00] VITALS: BP 135/84
[2019-12-08] MEDS: haloperidol 5mg tablet PO PRN ×2 (10:45→16:35)
[2019-12-08] MEDS: propranolol 10mg tablet PO SCH ×2 (12:03→22:33)
--- NOTE | 2019-12-08 16:09 | NUR ---
Nursing Progress Note: [facility] Legal hold: T-CON Client on involuntary status for GD. Report received from FRANCISCO J Young with use of SBAR. Why are they here: Pt admitted to [facility] for Behavioral health today on a 5150 for gravely disabled. Pt has been unable to care for himself. He is unable to verbalize a viable plan for food, clothing, and senior living. Pt is responding to internal stimuli. Pt repeatedly comes to the [place] crisis unit begging for food with significant weight loss.. Pt unable to manage finances and is disheveled and unkempt. The county is seeking conservatorship and need his 5250 faxed to them at [phone] to start T-con paperwork. Pt has history of schizophrenia and bipolardisorder. Assessment What has happened this shift: Client was awake to begin the shift with LOS present. Client was initially quiet but soon began to escalate verbally and yelling, " I just want to get out". Client assumed a threatening stance with this automotive service writer and advanced but was able to redirect without incident. Client was compliant with medications and assessment. Behavior continues to be unpredictable.Client went to his room with LOS present after morning meal. He has rested with eyes closed and remains there at 0910 hours. PRN of Haldol given for agitation at 1045 hours. Client was punching boyd and yelling and would not redirect. Client taking shower at 1145 hours. Client still loudly stating he wants to leave at frequent intervals. Client yelling at frequent intervals and started to agress Security but was redirected, medicated per orders and then client went to rest in his room where he is laying with eyes open and LOS in place. Client has alternated between resting in his room and ambulating in the lee. His impulse control is very challenged and he is prone to loud outbursts at frequent intervals. Client ambulating hallways at 1420 hours with LOS present. He is focused on contacting family and has placed multiple calls to his sister. Client claims to have lived in a, "camp" in [place] for the past 3 years. He is determined to gain his discharge and reside back in [place]. He went to his room to rest after snacks today and he remains there as of this writing at 1610 hours. S/I, H/I: Denies A/VH: Denies. Sleep: ADL's: Independent with prompting. Group attendance: Were meds taken: Yes. Any med S/E: None reported or observed. Mental Status Exam Appearance: Large, disheveled man wearing green unit scrubs. Eye contact: Poor. Behavior: Sleeping, angry, child-like, anxious. Speech: Clear, loud at times, then normal. Mood: Labile. Affect: Congruent with mood. Thought process: Circumstantial, perseverative, thought blocking. Thought Content: Angry over his situation. Cognition: Oriented to person and place. Insight Poor. Judgment: Poor. Interventions PRN's used: Haldol Therapeutic interventions: 1:1 therapeutic assessment, medication administration, monitored for change in behavior, provided active listening, positive feedback, reassurance, encouragement Q15 minute safety checks. Justification of Continued Inpatient Treatment: Pt need a safe and supportive environment to interrupt current crisis. Gravely disabled and is now a T-CON.
[2019-12-08 19:33] VITALS: BP 133/80
[2019-12-08] MEDS: traZODone 50mg tablet PO SCH (22:33)
--- NOTE | 2019-12-09 03:39 | NUR ---
Nursing Progress Note: Legal hold: T-CON Client on involuntary status for GD. Report received from FRANCISCO J Ferro with use of SBAR. Why are they here: [facility] a 5150 for gravely disabled. Pt has been unable to care for himself. He is unable to verbalize a viable plan for food, clothing, and longterm. Pt is responding to internal stimuli. Pt repeatedly comes to the [place] crisis unit begging for food with significant weight loss.. Pt unable to manage finances and is disheveled and unkempt. The county is [place] and need his 5250 faxed to them at [phone] to start T-con paperwork. Pt has history of schizophrenia and bipolar.. Assessment What has happened this shift: The patient was sleeping at shift change. He slept until 2230 when he woke up. He was fed and medicated. The patient does not answer questions when asked, just looks down. He made no outbursts when awake, and went back to sleep with LOS outside his door. S/I, H/I: Denies A/VH: Denies. Sleep: See sleep assessment. ADL's: Independent with prompting. Group attendance: No. Were meds taken: Yes. Any med S/E: None reported or observed. Mental Status Exam Appearance: Large, disheveled man wearing green unit scrubs. Eye contact: Poor, intense at times. Behavior: Angry, irritable, labile, child-like, anxious, impulsive. Speech: Clear, loud at times, then normal. Mood: Labile. Affect: Congruent with mood. Thought process: Circumstantial, perseverative, thought blocking. Thought Content: Angry over his situation. Cognition: Oriented to person and place. Insight Poor. Judgment: Poor. Interventions PRN's used: Therapeutic interventions: 1:1 therapeutic assessment, medication administration, monitored for change in behavior, provided active listening, positive feedback, reassurance, encouragement Q15 minute safety checks. Justification of Continued Inpatient Treatment: Pt need a safe and supportive environment to interrupt current crisis. Gravely disabled and is now a T-CON.
[2019-12-09] MEDS: LORazepam 1 MG tablet PO PRN ×2 (06:07→15:12)
[2019-12-09] MEDS: quetiapine 100mg tablet PO SCH ×3 (07:35→21:15)
[2019-12-09] MEDS: divalproex sod 250mg ER (24-hour) tablet PO SCH ×3 (07:36→17:58)
[2019-12-09] MEDS: propranolol 10mg tablet PO SCH ×3 (07:36→21:16)
[2019-12-09] MEDS: LORazepam 1 MG tablet PO SCH ×3 (07:37→21:16)
[2019-12-09] MEDS: nicotine 21mg patch - 24 hr TD SCH (07:43)
[2019-12-09 08:07] VITALS: BP 137/77
[2019-12-09] MEDS: haloperidol 5mg tablet PO PRN (10:06)
[2019-12-09] MEDS: benztropine 1mg tablet PO PRN (10:06)
[2019-12-09] MEDS: diphenhydrAMINE 25mg capsule PO PRN (10:06)
[2019-12-09] MEDS ORDERED: haloperidol 5mg tablet PO ONE (14:55)
[2019-12-09] MEDS ORDERED: diphenhydrAMINE 25mg capsule PO ONE (14:55)
[2019-12-09] MEDS ORDERED: benztropine 1mg tablet PO ONE (14:55)
--- NOTE | 2019-12-09 17:42 | NUR ---
Nursing Progress Note: [facility] Legal hold: T-CON Client on involuntary status for GD. Report received from FRANCISCO J Young with use of SBAR. Why are they here: Pt admitted to [place] for Behavioral health today on a 5150 for gravely disabled. Pt has been unable to care for himself. He is unable to verbalize a viable plan for food, clothing, and half-way. Pt is responding to internal stimuli. Pt repeatedly comes to the [place] crisis unit begging for food with significant weight loss.. Pt unable to manage finances and is disheveled and unkempt. The county is seeking conservatorship and need his 5250 faxed to them at [phone] to start T-con paperwork. Pt has history of schizophrenia and bipolardisorder. Assessment What has happened this shift: Pt. is on LOS. Pt. awake at beginning of shift, loud and yelling I want to go home. Pt. given verbal redirection from staff and was compliant. Pt. took shower and then went back to room and fell asleep. Pt. awoke before breakfast. Pt. listening to headphones and pacing. Pt. requesting food and given hot cocoa. Pt. took medications and ate breakfast. 1:1 done at bedside, pt. denies SI/HI, A/V hallucinations. Pt. crying, states, I just want to go home. Pt. given phone to call sister but she did not pickler helper phone. Pt. began yelling, I want to go! Pt. redirected back to his room where he began to kick the foot board of his bed. Pt. given verbal redirection but yelled, Get out of my room!. Pt. given PRN Haldol 5mg, Benadryl 50mg, Cogentin 0.5mg PO. Pt. fell asleep. Pt. awoke and pacing halls, pt. attempted to touch another female peer but verbally redirected, pt. became angry, cursing at staff. Pt. asking for food and informed if he kept good behavior he could have a snack. Limit setting and consequences continually enforced during the shift. After lunch pt. attempted to call sister who did not pickler helper. Pt. again began yelling, I want to go home. Pt. redirected back to his room where pt. yelled at staff and hit and banged on his bed foot board, pt. not responding to verbal redirection and told this nurse to get the out of my room. RN contacted pt.s provider as it was too soon to give pt. Haldol, Benadryl, and Cogentin. RN received order for now dose of Haldol 5mg, Benadryl 50mg, and Cogentin 0.5mg po. RN also gave pt. Ativan 2mg po. Pt. layed down for a short time but then was up again asking for snacks. Pt. noticeably calmer. Pt. napped for approximately 1hr awoke requesting snacks, when pt. did not receive the snack he wanted he yelled and slammed his door. Pt. given consequences for his actions and snack withheld. Pt. then began to cry. S/I, H/I: Denies A/VH: Denies. Sleep: Pt. napped intermittently throughout the day. ADL's: Independent with prompting. Group attendance: No Were meds taken: Yes. Any med S/E: Pt. has some drooling. Mental Status Exam Appearance: disheveled, unkempt, wearing stained green unit scrubs. Eye contact: Poor. Behavior: Sleeping, angry, child-like, anxious. Speech: Clear, loud at times, then normal. Mood: Labile. Affect: Congruent with mood. Thought process: Circumstantial, perseverative, thought blocking. Thought Content: Angry over his situation. Focused on discharge Cognition: Oriented to person and place. Insight Poor. Judgment: Poor. Interventions PRN's used: Haldol x2, Ativan x1, Benadryl x2, Cogentin x2 Therapeutic interventions: 1:1 therapeutic assessment, medication administration, monitored for change in behavior, provided active listening, positive feedback, reassurance, encouragement Q15 minute safety checks. Justification of Continued Inpatient Treatment: Pt need a safe and supportive environment to interrupt current crisis. Gravely disabled and is now a T-CON.
[2019-12-09 19:51] VITALS: BP 131/85
[2019-12-09] MEDS: traZODone 50mg tablet PO SCH (21:17)
--- NOTE | 2019-12-10 04:27 | NUR ---
Nursing Progress Note: [facility] Legal hold: 5250 Client on involuntary status for GD. Report received from Gelacio RN with use of SBAR. Why are they here: Pt admitted to [facility] for Behavioral health today on a 5150 for gravely disabled. Pt has been unable to care for himself. He is unable to verbalize a viable plan for food, clothing, and prison. Pt is responding to internal stimuli. Pt repeatedly comes to the [place] crisis unit begging for food with significant weight loss.. Pt unable to manage finances and is disheveled and unkempt. The county is seeking conservatorship and need his 5250 faxed to them at [phone] to start T-con paperwork. Pt has history of schizophrenia and bipolar. Assessment What has happened this shift: PT remains on a 1:1. Pt is sleeping at shift change. He is cooperative for 1:1 assessment and medication compliant. PT appears tired and remains polite during interaction. He thanks conventional mortgage underwriter and compliments conventional mortgage underwriter. He is calm and easily redirectable. He eats HS snack and is able to go right back to bed, he sleeps majority of the night. He wakes up and comes to the nursing station around 0400 and says hello, then goes back to bed without issue. S/I, H/I: Denies A/VH: denies Sleep: see sleep hours ADL's: Independent with prompting. Pt need prompting to use eating utensils and change clothing. Group attendance: no Were meds taken: Yes Any med S/E: none reported, none observed Mental Status Exam Appearance: clean in jeans and a green scrub top Eye contact: poor Behavior: sleeps most of shift, pleasant while awake Speech: Clear Mood: pleasant while awake Affect: blunted Thought process: Circumstantial Thought Content: Focused on food and going home to his family Cognition: A&Ox2 Insight Poor Judgment: Poor Interventions PRN's used: none Therapeutic interventions: 1:1 therapeutic assessment, medication administration, monitored for change in behavior, provided active listening, positive feedback, reassurance, encouragement Q15 minute safety checks. Restraints/seclusion/emergency medication: None Justification of Continued Inpatient Treatment: Pt need a safe and supportive environment to interrupt current crisis. Gravely disabled may require placement.
[2019-12-10 06:29] LABS: BASOPHILS # (AUTO) 0.1 X10'3 (0-0.2); BASOPHILS % (AUTO) 0.7 % (0-1); EOSINOPHILS # (AUTO) 0.3 X10'3 (0-0.9); EOSINOPHILS % (AUTO) 1.9 % (0-6); HEMATOCRIT 45.3 % (42.0-52.0); HEMOGLOBIN 15.3 g/dl (14.0-17.9); LYMPHOCYTES # (AUTO) 4.1 X10'3 (1.1-4.8); LYMPHOCYTES % (AUTO) 29.8 % (21-51); MEAN CORPUSCULAR HEMOGLOBIN 31.5 PG (27.0-31.0); MEAN CORPUSCULAR HGB CONC 33.7 g/dL (33.0-36.5); MEAN CORPUSCULAR VOLUME 93.5 FL (78-98); MEAN PLATELET VOLUME 6.8 FL (7.4-10.4); MONOCYTES # (AUTO) 0.7 X10'3 (0-0.9); MONOCYTES % (AUTO) 4.8 % (2-12); NEUTROPHILS # (AUTO) 8.6 X10'3 (1.8-7.7); NEUTROPHILS % (AUTO) 62.8 % (42-75); PLATELET COUNT 365 X10'3 (140-440); RED BLOOD COUNT 4.84 X10'6 (4.70-6.10); WHITE BLOOD COUNT 13.7 X10'3 (4.5-11.0)
[2019-12-10 06:53] LABS: TOTAL CELLS COUNTED 100
[2019-12-10 06:54] LABS: PLATELET ESTIMATE NORMAL; TOXIC GRANULATION 2+
[2019-12-10 07:03] LABS: ALANINE AMINOTRANSFERASE 15 U/L (12-78); ALBUMIN 3.5 G/DL (3.4-5.0); ALBUMIN/GLOBULIN RATIO 0.9 (1.1-1.5); ALKALINE PHOSPHATASE 73 IU/L (46-116); ANION GAP 5 (8-16); ASPARTATE AMINO TRANSFERASE 10 U/L (10-37); BILIRUBIN,TOTAL 0.2 MG/DL (0.1-1.0); BLOOD UREA NITROGEN 15 MG/DL (7-18); BUN/CREATININE RATIO 23.4 (5.4-32.0); CHLORIDE 103 MMOL/L (99-107); CREATININE 0.64 MG/DL (0.60-1.10); GLUCOSE 103 MG/DL (70-104); POTASSIUM 4.3 MMOL/L (3.5-5.1); SODIUM 138 MMOL/L (135-145); TOTAL CARBON DIOXIDE 29.9 MMOL/L (24-32); TOTAL PROTEIN 7.4 G/DL (6.4-8.2); eGFR > 90 ML/MIN
[2019-12-10 07:09] LABS: VALPROATE 75 UG/ML (50-100)
[2019-12-10] MEDS: benztropine 1mg tablet PO PRN ×2 (07:38→20:36)
[2019-12-10] MEDS: propranolol 10mg tablet PO SCH ×3 (07:39→20:04)
[2019-12-10] MEDS: LORazepam 1 MG tablet PO SCH ×3 (07:39→20:04)
[2019-12-10] MEDS: quetiapine 100mg tablet PO SCH ×3 (07:39→20:04)
[2019-12-10] MEDS: nicotine 21mg patch - 24 hr TD SCH (07:40)
[2019-12-10] MEDS: diphenhydrAMINE 25mg capsule PO PRN (07:40)
[2019-12-10] MEDS: haloperidol 5mg tablet PO PRN ×2 (07:40→20:36)
[2019-12-10] MEDS: divalproex sod 250mg ER (24-hour) tablet PO SCH ×3 (07:41→17:06)
[2019-12-10 08:00] VITALS: BP 170/85
--- NOTE | 2019-12-10 11:45 | NUR ---
1:1-Emotional Support Presenting Issues: Pt experiencing emotional distress as a result of thoughts & fear about being "locked up". Pt became verbally agitated, loud in common areas on the unit, and broke down in tears. Interventions: SS met w/pt provided 1:1 emotional support to decrease intensity of distress, provided opportunity for pt to name his distress, receive validation, and an opportunity to release some of the anxiety brought on by thoughts of being locked up. Pt able to verbalize distress w/o further escalation. Session ended when pt demonstrated positive verbal communication of needs. Plan: SS will continue to provide 1:1 as needed. Sheridan Obrien LCSW Addendum: 12/10/19 at 1219 by Sheridan Obrien Amended: Links added.
[2019-12-10] MEDS: ibuprofen tablet 400 MG TABLET PO PRN (12:45)
--- NOTE | 2019-12-10 15:12 | NUR ---
Nursing Progress Note: [facility] Legal hold: 5250 Client on involuntary status for GD. Report received from Hannah MARX with use of SBAR. Why are they here: Pt admitted to [facility] for Behavioral health today on a 5150 for gravely disabled. Pt has been unable to care for himself. He is unable to verbalize a viable plan for food, clothing, and chcf. Pt is responding to internal stimuli. Pt repeatedly comes to the [place] crisis unit begging for food with significant weight loss.. Pt unable to manage finances and is disheveled and unkempt. The county is seeking conservatorship and need his 5250 faxed to them at [phone] to start T-con paperwork. Pt has history of schizophrenia and bipolar. Assessment What has happened this shift: Patient was awake to begin this shift and was smiling and cordial with story writer. He was soon yelling and posturing in a threatening manner. Client took medications and was assessed without problems. Client was able to participate in breakfast with his peers. After breakfast, client was ambulating in halls with frequent yelling outbursts. Client saw PA and then went to bed to rest. He is in bed with eyes closed and in NAD at 1033 hours. Client had a prolonged outburst this afternoon but did not hit anything. Client will redirect but it takes several attempts to get him to comply. Client has been prone to loud, tearful outbursts this afternoon. He repeats that, " I just want to leave". Client given Haldol and Cogentin per orders at 1440 hours. Client behavior has been much better this shift. Impulse control is improving and client can be redirected without a physical incident. S/I, H/I: Denies A/VH: denies Sleep: see sleep hours ADL's: Independent with prompting. Pt need prompting to use eating utensils and change clothing. Group attendance: no Were meds taken: Yes Any med S/E: none reported, none observed Mental Status Exam Appearance: clean in jeans and a green scrub top Eye contact: poor Behavior: sleeps most of shift, pleasant while awake Speech: Clear Mood: pleasant while awake Affect: blunted Thought process: Circumstantial Thought Content: Focused on food and going home to his family Cognition: A&Ox2 Insight Poor Judgment: Poor Interventions PRN's used: none Therapeutic interventions: 1:1 therapeutic assessment, medication administration, monitored for change in behavior, provided active listening, positive feedback, reassurance, encouragement Q15 minute safety checks. Restraints/seclusion/emergency medication: None Justification of Continued Inpatient Treatment: Pt need a safe and supportive environment to interrupt current crisis. Gravely disabled may require placement.
[2019-12-10 20:01] VITALS: BP 141/81
[2019-12-10] MEDS: traZODone 50mg tablet PO SCH (20:04)
[2019-12-10] MEDS: lithium carbonate 150mg capsule PO SCH (20:04)
--- NOTE | 2019-12-11 01:34 | NUR ---
Nursing Progress Note: [facility] Legal hold: 5250 Client on involuntary status for GD. Report received from Marcelo GLOVER with use of SBAR. Why are they here: Pt admitted to [facility] for Behavioral health today on a 5150 for gravely disabled. Pt has been unable to care for himself. He is unable to verbalize a viable plan for food, clothing, and jail. Pt is responding to internal stimuli. Pt repeatedly comes to the [place] crisis unit begging for food with significant weight loss.. Pt unable to manage finances and is disheveled and unkempt. The county is seeking conservatorship and need his 5250 faxed to them at [phone] to start T-con paperwork. Pt has history of schizophrenia and bipolar. Assessment What has happened this shift: Pt continues to be on a LOS. Pt is very animated at shift change, walking the unit engaging with staff happily. He smiles, laughs, and sings as he walks. Pt abruptly becomes upset and begins to cry and slams his door. Marketing Co Op talks to pt and asks him why he is feeling this way, he responds, "I don't want to be here! I just want to go home! This is stupid just leave me alone! No one cares about me." Marketing Co Op reassures pt and gets him headphones so that he can listen to music. He takes his medication and lays in bed for a short time. He then gets up and is jovial again in the halls and eats his snack. He remains labile and asks "please give me more medication!" Pt given PRN haldol 5mg and cogentin 0.5 mg with good effect. S/I, H/I: Denies A/VH: denies Sleep: see sleep hours ADL's: Independent with prompting. Group attendance: no Were meds taken: Yes Any med S/E: slight sedation Mental Status Exam Appearance: Disheveled Eye contact: poor Behavior: walks the halls, engages with others Speech: Clear Mood: labile Affect: bizzare, labile Thought process: Circumstantial, delusional Thought Content: Focused on food and going home to his family Cognition: A&Ox2 Insight Poor Judgment: Poor Interventions PRN's used: haldol and cogentin Therapeutic interventions: 1:1 therapeutic assessment, medication administration, monitored for change in behavior, provided active listening, positive feedback, reassurance, encouragement Q15 minute safety checks. Restraints/seclusion/emergency medication: None Justification of Continued Inpatient Treatment: Pt need a safe and supportive environment to interrupt current crisis. Gravely disabled may require placement.
[2019-12-11] MEDS: acetaminophen 325mg tablet PO PRN (07:07)
[2019-12-11] MEDS: divalproex sod 250mg ER (24-hour) tablet PO SCH ×3 (07:44→18:57)
[2019-12-11] MEDS: LORazepam 1 MG tablet PO SCH ×3 (07:44→21:20)
[2019-12-11] MEDS: lithium carbonate 150mg capsule PO SCH ×3 (07:44→21:20)
[2019-12-11] MEDS: propranolol 10mg tablet PO SCH ×3 (07:44→21:20)
[2019-12-11] MEDS: quetiapine 100mg tablet PO SCH ×3 (07:45→21:19)
[2019-12-11] MEDS: nicotine 21mg patch - 24 hr TD SCH (07:56)
[2019-12-11 08:00] VITALS: BP 128/78
[2019-12-11] MEDS: ibuprofen tablet 400 MG TABLET PO PRN (09:49)
--- NOTE | 2019-12-11 13:17 | NUR ---
Nursing Progress Note: Legal hold: 5150 Client on involuntary status for GD. Report received from Josefa GLOVER with use of SBAR. Why are they here: Pt admitted to [facility] on a 5150 for gravely disabled. Pt has been unable to care for himself. He is unable to verbalize a viable plan for food, clothing, and skilled nursing. Pt is responding to internal stimuli. Pt repeatedly comes to the [facility] crisis unit begging for food with significant weight loss.. Pt unable to manage finances and is disheveled and unkempt. The county is seeking conservatorship and need his 5250 faxed to them at [phone] to start T-con paperwork. Pt has history of schizophrenia and bipolar.. Assessment What has happened this shift: Pt has been up and visible on the unit. Pt behaved hypomanic at times and angry at other times. Pt very quick to agitation, and after breakfast was focused on wanting to go home and then picked a fight with a peer and needed redirection back to his room. He then through the headphones against the wall. After a few minutes and some yelling, he laid down and went to sleep. Providing physical touch (patting on the back) continues to help settle him when hes upset. Pt did take medications as prescribed. Pt remains extremely labile. S/I, H/I: Denies A/VH: denies Sleep: napped on and off ADL's: may need encouragement Group attendance: no Were meds taken: Yes Any med S/E no Mental Status Exam Appearance: Disheveled Eye contact: intense at times Behavior: Some agitation Speech: Clear Mood: Anxious Affect: Anxious Thought process: Disorganized Thought Content: Not clear Cognition: May have some deficits Insight Poor Judgment: Poor Interventions PRN's used: Therapeutic interventions: 1:1 therapeutic assessment, medication administration, monitored for change in behavior, provided active listening, positive feedback, reassurance, encouragement, Q15 minute safety checks. Restraints/seclusion/emergency medication: N/A Justification of Continued Inpatient Treatment: Pt need a safe and supportive environment to interrupt current crisis. Gravely disabled may require placement.
[2019-12-11 19:57] VITALS: BP 117/74
[2019-12-11] MEDS: traZODone 50mg tablet PO SCH (21:19)
--- NOTE | 2019-12-12 01:11 | NUR ---
Nursing Progress Note: [facility] Legal hold: 5250 Client on involuntary status for GD. Report received from Marcelo GLOVER with use of SBAR. Why are they here: [facility]150 for gravely disabled. Pt has been unable to care for himself. He is unable to verbalize a viable plan for food, clothing, and alf. Pt is responding to internal stimuli. Pt repeatedly comes to the [facility] crisis unit begging for food with significant weight loss.. Pt unable to manage finances and is disheveled and unkempt. The county is seeking conservBoxbehip and need his 5250 faxed to them at [phone] to start T-con paperwork. Pt has history of schizophrenia and bipolar. Assessment What has happened this shift: Pt was in his room sleeping during shift change. Woke pt up for his 1800 Depakote which he took without any issues. He had a snack and returned back to sleep. Pt was cooperative during 1:1 physical assessment although he was very sleepy and mostly unable to answer most questions being asked. He denies any A/VH, depression or anxiety. Does not appear to be responding to internal stimuli. He requested snack again and returned to sleep after he ate it. As of this note, pt has been calm and mostly sleeping, no behavioral issues thus far. Continue to be on LOS. S/I, H/I: Denies A/VH: denies Sleep: Currently sleeping, see sleep assessment for total hour ADL's: Requires prompting Group attendance: no Were meds taken: Yes Any med S/E: Possibly oversedated, some drooling observed Mental Status Exam Appearance: Disheveled Eye contact: poor Behavior: Cooperative, sleepy, isolative to his room Speech: Slurred, drooling Mood: States he feels tired Affect: Blunted Thought process: Circumstantial, delusional Thought Content: Perseverating on snack, meds Cognition: A&Ox2 Insight Poor Judgment: Poor Interventions PRN's used: None Therapeutic interventions: 1:1 therapeutic assessment, medication administration, monitored for change in behavior, provided active listening, positive feedback, reassurance, encouragement Q15 minute safety checks. Restraints/seclusion/emergency medication: None Justification of Continued Inpatient Treatment: Pt need a safe and supportive environment to interrupt current crisis. Gravely disabled may require placement.
[2019-12-12] MEDS: quetiapine 100mg tablet PO SCH ×4 (07:14→20:27)
[2019-12-12] MEDS: LORazepam 1 MG tablet PO SCH ×4 (07:14→20:27)
[2019-12-12] MEDS ORDERED: haloperidol lactate 5mg/ml inj ONE (07:18)
[2019-12-12] MEDS ORDERED: diphenhydrAMINE 50 mg/ml inj ONE (07:18)
--- NOTE | 2019-12-12 07:30 | NUR ---
Aggression: Pt begins to escalate demanding to go home and cursing "This is bull shit." Attempted to deescalate pt and offer pt his morning medications. PT hit the meds out of his nurse Lula RN hand. This caused injury to the nurses wrist. Security was at bedside. Pt given IM Benadryl 50mg, Ativan 2mg, Haldol 5mg. Pt told to stay in room until able to remain calm.
[2019-12-12] MEDS: LORazepam 2 mg/ml vial IM PRN (07:34)
[2019-12-12] MEDS: nicotine 21mg patch - 24 hr TD SCH (08:00)
[2019-12-12 08:14] VITALS: BP 117/98
[2019-12-12] MEDS ORDERED: divalproex sod 250mg ER (24-hour) tablet PO SCH (08:30)
[2019-12-12] MEDS: lithium carbonate 150mg capsule PO SCH ×3 (09:00→20:27)
[2019-12-12] MEDS: propranolol 10mg tablet PO SCH ×3 (09:01→20:26)
[2019-12-12] MEDS: divalproex sod 250mg ER (24-hour) tablet PO SCH ×4 (09:01→18:35)
--- NOTE | 2019-12-12 09:28 | NUR ---
Reassessment: Pt continues meeting nutrient needs with average 75-100% PO intake. LBM 12/09. No wt loss. No nutrition intervention warranted at this time. Will continue to follow. Recommendations: 1) Continue regular diet 2) Double eggs q breakfast, double meat BIDLD per diet order 3) Bowel care PRN 4) Scaled weights per rx Addendum: 12/12/19 at [address] Amended: Links added.
--- NOTE | 2019-12-12 18:23 | NUR ---
Nursing Progress Note: [facility] Legal hold: 5250 Client on involuntary status for GD. Report received from Antonella GLOVER with use of SBAR. Why are they here: Pt admitted to [facility] for [facility] today on a 5150 for gravely disabled. Pt has been unable to care for himself. He is unable to verbalize a viable plan for food, clothing, and custodial. Pt is responding to internal stimuli. Pt repeatedly comes to the [place] crisis unit begging for food with significant weight loss.. Pt unable to manage finances and is disheveled and unkempt. The county is seeking conservatorship and need his 5250 faxed to them at [phone] to start T-con paperwork. Pt has history of schizophrenia and bipolar. Assessment What has happened this shift: Pt awake at change of shift. Pt asking to leave at 0700 this morning. By 0730 attempting to give pt his AM medication pt is angry and aggressive and cursing. Pt slaps his cup of meds out of his nurses hand spilling them all over the floor. Pts nurse sent to ER and then home. This nurse takes over and pt given IM shots of Haldol 5mg, Benadryl 50mg and Ativan 2mg. By 0900 pt is calmer and laying in bed and pt takes his morning oral medications. Pt spends time in room quieter with his LOS sitter. Pt takes his 1300 medications without incident. Pt gets hair cut today and more easily redirected the rest of the day. Pt does often ask when he can leave and why he cant and whens his court date and "This is bullshit". S/I, H/I: Denies A/VH: denies Sleep: Intermittently ADL's: Requires prompting Group attendance: no Were meds taken: Yes Any med S/E: Pt drools and sprays drool when screaming Mental Status Exam Appearance: Disheveled Eye contact: poor Behavior: Cooperative, sleepy, isolative to his room Speech: Slurred, drooling Mood: States he feels tired Affect: Blunted Thought process: Circumstantial, delusional Thought Content: Perseverating on snack, Cognition: A&Ox2 Insight Poor Judgment: Poor Interventions PRN's used: None Therapeutic interventions: 1:1 therapeutic assessment, medication administration, monitored for change in behavior, provided active listening, positive feedback, reassurance, encouragement Q15 minute safety checks. Restraints/seclusion/emergency medication: None Justification of Continued Inpatient Treatment: Pt need a safe and supportive environment to interrupt current crisis. Gravely disabled will require placement.
[2019-12-12] MEDS: acetaminophen 325mg tablet PO PRN (18:39)
[2019-12-12] MEDS: traZODone 50mg tablet PO SCH (19:27)
[2019-12-12 19:41] VITALS: BP 129/81
--- NOTE | 2019-12-13 04:24 | NUR ---
Nursing Progress Note Legal hold: 5250 Client on involuntary status for GD. Report received from Marcelo GLOVER with use of SBAR. Why are they here: Pt admitted to [facility] for [facility] today on a 5150 for gravely disabled. Pt has been unable to care for himself. He is unable to verbalize a viable plan for food, clothing, and penitentiary. Pt is responding to internal stimuli. Pt repeatedly comes to the [facility] crisis unit begging for food with significant weight loss.. Pt unable to manage finances and is disheveled and unkempt. The county is seeking conservatorship and need his 5250 faxed to them at [phone] to start T-con paperwork. Pt has history of schizophrenia and bipolar. Assessment What has happened this shift: Pt was up and active on unit for first hour of shift. Pt was friendly and cooperative, giving this rn several fist bumps during 1:1. Pt did not have any outbursts at time of this writing and accepted hs meds without issue. pt was seen interacting with other pt's and was behaving appropriately. Pt went to bed without issue and is still on los. S/I, H/I: Denies A/VH: denies Sleep: Currently sleeping, see sleep assessment for total hour ADL's: Requires prompting Group attendance: no Were meds taken: Yes Any med S/E: none noticed Mental Status Exam Appearance: Disheveled Eye contact: poor Behavior: Cooperative, friendly Speech: Slurred Mood: bored Affect: Blunted Thought process: Circumstantial, delusional Thought Content: Perseverating on snack, meds Cognition: A&Ox2 Insight Poor Judgment: Poor Interventions PRN's used: None Therapeutic interventions: 1:1 therapeutic assessment, medication administration, monitored for change in behavior, provided active listening, positive feedback, reassurance, encouragement Q15 minute safety checks. Restraints/seclusion/emergency medication: None Justification of Continued Inpatient Treatment: Pt need a safe and supportive environment to interrupt current crisis. Gravely disabled may require placement.
[2019-12-13 07:30] VITALS: BP 120/70
[2019-12-13] MEDS: nicotine 21mg patch - 24 hr TD SCH (08:00)
[2019-12-13] MEDS: lithium carbonate 150mg capsule PO SCH ×3 (08:05→19:18)
[2019-12-13] MEDS: propranolol 10mg tablet PO SCH ×3 (08:06→19:19)
[2019-12-13] MEDS: quetiapine 100mg tablet PO SCH ×3 (08:06→19:19)
[2019-12-13] MEDS: LORazepam 1 MG tablet PO SCH ×3 (08:06→19:18)
[2019-12-13] MEDS: divalproex sod 250mg ER (24-hour) tablet PO SCH ×4 (08:07→17:11)
[2019-12-13] MEDS: diphenhydrAMINE 25mg capsule PO PRN (16:02)
[2019-12-13] MEDS: benztropine 1mg tablet PO PRN (16:02)
[2019-12-13] MEDS: haloperidol 5mg tablet PO PRN (16:02)
[2019-12-13] MEDS: NICOTINE POLACRILEX 2 MG LOZENGE BC PRN (16:26)
[2019-12-13] MEDS: acetaminophen 325mg tablet PO PRN (16:26)
[2019-12-13] MEDS ORDERED: diphenhydrAMINE 25mg capsule PO ONE (17:00)
[2019-12-13] MEDS ORDERED: haloperidol 5mg tablet PO ONE (17:00)
[2019-12-13] MEDS: LORazepam 1 MG tablet PO PRN (17:12)
--- NOTE | 2019-12-13 17:39 | NUR ---
Nursing Progress Note: [facility] Legal hold: T-CON Client on involuntary status for GD. Report received from Yanni Her RN with use of SBAR. Why are they here: Pt admitted to [facility] for [facility] today on a 5150 for gravely disabled. Pt has been unable to care for himself. He is unable to verbalize a viable plan for food, clothing, and correction. Pt is responding to internal stimuli. Pt repeatedly comes to the [place] [facility] crisis unit begging for food with significant weight loss.. Pt unable to manage finances and is disheveled and unkempt. The county is seeking conservatorship and need his 5250 faxed to them at [phone] to start T-con paperwork. Pt has history of schizophrenia and bipolardisorder. Assessment What has happened this shift: Pt. is on LOS. Pt. asleep at start of shift. Pt. awake for breakfast and medications. Pt. took all medications and ate all meals in the community room. Pt. went back to bed after breakfast. Pt. awoke and requested to go home. When RN informed pt. he would need to speak with his public guardian pt. became frustrated and went back to sleep. Pt. before lunch requesting food, RN informed pt. that he would need to wait for lunch and pt. became agitated, stating, But Im hungry. After lunch pt. went back to sleep again. Pt. awoke and showered. Pt. became agitated again yelling, I want to go home! Pt. informed that yelling was unacceptable and told to go back to his room, pt. was complied. Pt. appeared frustrating stating, Telma been here to long. Pt. then went to sleep. Pt. woke up and asked for a pen, pt. informed there were only pencils or markers and pt. began to yell and swear. Pt. told to go back to his room to calm down, in his room pt. again started yelling and hitting his bed. Pt. given Haldol 5mg, Cogentin 0.5mg, and Benadryl 50mg with little effect. Pt. continued to yell and curse and did not stop with deescelation techniques and offering to call his sister. RN received verbal order from provider for Haldol 10mg, Ativan 2mg, and Benadryl 100mg. Pt. took medications and requested to call his aunt, pt. given phone. Pt. given Tylenol 650mg for reported headache 11/12 with minimal effect. S/I, H/I: Denies A/VH: Denies. Sleep: Pt. napped intermittently throughout the day. ADL's: Independent with prompting. Group attendance: No Were meds taken: Yes. Any med S/E: Pt. has some drooling. Sedation. Mental Status Exam Appearance: Clean, disheveled, wearing street clothes. Eye contact: Poor. Behavior: Sleeping, angry, child-like, anxious. Speech: Clear, loud at times, then normal. Mood: Labile but subdued Affect: Congruent with mood. Thought process: Circumstantial, perseverative, thought blocking. Thought Content: Angry over his hospitalization. Focused on discharge Cognition: Oriented to person and place. Insight Poor. Judgment: Poor. Interventions PRN's used: Haldol 15mg, Ativan 2mg, Benadryl 150mg, Tylenol 650mg Therapeutic interventions: 1:1 therapeutic assessment, medication administration, monitored for change in behavior, provided active listening, positive feedback, reassurance, encouragement Q15 minute safety checks. Justification of Continued Inpatient Treatment: Pt need a safe and supportive environment to interrupt current crisis. Gravely disabled and is now a T-CON.
[2019-12-13] MEDS: traZODone 50mg tablet PO SCH (19:17)
[2019-12-13 20:00] VITALS: BP 104/86
--- NOTE | 2019-12-13 22:48 | NUR ---
Nursing Progress Note: [facility] Legal hold: T-CON Client on involuntary status for GD. Report received from FRANCISCO J Robertson with use of SBAR. Why are they here: Pt admitted to [facility] for [facility] today on a 5150 for gravely disabled. Pt has been unable to care for himself. He is unable to verbalize a viable plan for food, clothing, and senior living. Pt is responding to internal stimuli. Pt repeatedly comes to the [place] crisis unit begging for food with significant weight loss.. Pt unable to manage finances and is disheveled and unkempt. The county is seeking conservatorship and need his 5250 faxed to them at [phone] to start T-con paperwork. Pt has history of schizophrenia and bipolardisorder. Assessment What has happened this shift: Pt. is on LOS. Pt. was asleep at start of shift awoke shortly after. He asked for a snack and was informed snack was at 8 pm. Pt became agitated and yelled. He was redirected back to his room and calmed down for a while. Pt got up again and started yelling redirected and meds given a little early after stating I want to go to sleep. Pt slept for an hour woke up and asked for snacks again. Pt returned to bed. S/I, H/I: Denies A/VH: Denies. Sleep: Pt. napped intermittently throughout the day. ADL's: Independent with prompting. Group attendance: No Were meds taken: Yes. Any med S/E: Pt. has some drooling. Sedation. Mental Status Exam Appearance: Clean, disheveled, wearing street clothes. Eye contact: Poor. Behavior: Sleeping, angry, child-like, anxious. Speech: Clear, loud at times, then normal. Mood: Labile but subdued Affect: Congruent with mood. Thought process: Circumstantial, perseverative, thought blocking. Thought Content: Angry over his hospitalization. Focused on discharge Cognition: Oriented to person and place. Insight Poor. Judgment: Poor. Interventions PRN's used: Therapeutic interventions: 1:1 therapeutic assessment, medication administration, monitored for change in behavior, provided active listening, positive feedback, reassurance, encouragement Q15 minute safety checks. Justification of Continued Inpatient Treatment: Pt need a safe and supportive environment to interrupt current crisis. Gravely disabled and is now a T-CON.
[2019-12-14 07:30] VITALS: BP 130/70
[2019-12-14] MEDS: quetiapine 100mg tablet PO SCH ×3 (07:50→20:24)
[2019-12-14] MEDS: propranolol 10mg tablet PO SCH ×3 (07:51→20:25)
[2019-12-14] MEDS: lithium carbonate 150mg capsule PO SCH ×3 (07:52→20:25)
[2019-12-14] MEDS: LORazepam 1 MG tablet PO SCH ×3 (07:52→20:24)
[2019-12-14] MEDS: divalproex sod 250mg ER (24-hour) tablet PO SCH ×4 (07:52→18:00)
[2019-12-14 07:53] LABS: BASOPHILS % (AUTO) 0.4 % (0-1); EOSINOPHILS # (AUTO) 0.3 X10'3 (0-0.9); EOSINOPHILS % (AUTO) 2.2 % (0-6); HEMATOCRIT 44.1 % (42.0-52.0); HEMOGLOBIN 14.7 g/dl (14.0-17.9); LYMPHOCYTES # (AUTO) 3.7 X10'3 (1.1-4.8); LYMPHOCYTES % (AUTO) 27.9 % (21-51); MEAN CORPUSCULAR HEMOGLOBIN 31.5 PG (27.0-31.0); MEAN CORPUSCULAR HGB CONC 33.3 g/dL (33.0-36.5); MEAN CORPUSCULAR VOLUME 94.5 FL (78-98); MEAN PLATELET VOLUME 6.6 FL (7.4-10.4); MONOCYTES # (AUTO) 0.5 X10'3 (0-0.9); MONOCYTES % (AUTO) 3.4 % (2-12); NEUTROPHILS # (AUTO) 8.8 X10'3 (1.8-7.7); NEUTROPHILS % (AUTO) 66.1 % (42-75); PLATELET COUNT 317 X10'3 (140-440); RED BLOOD COUNT 4.67 X10'6 (4.70-6.10); RED CELL DISTRIBUTION WIDTH 14.2 % (11.5-14.5); WHITE BLOOD COUNT 13.4 X10'3 (4.5-11.0)
[2019-12-14] MEDS: nicotine 21mg patch - 24 hr TD SCH (08:00)
[2019-12-14 08:50] LABS: GIANT PLATELET FEW; PLATELET ESTIMATE NORMAL; TOTAL CELLS COUNTED 100
[2019-12-14] MEDS: diphenhydrAMINE 25mg capsule PO PRN (14:05)
[2019-12-14] MEDS: LORazepam 1 MG tablet PO PRN (14:06)
[2019-12-14] MEDS: haloperidol 5mg tablet PO PRN (14:06)
[2019-12-14] MEDS: benztropine 1mg tablet PO PRN (14:07)
--- NOTE | 2019-12-14 17:44 | NUR ---
Nursing Progress Note: Legal hold: T-CON Client on involuntary status for GD. Report received from Yanni Her RN with use of SBAR. Why are they here: Pt admitted to [facility] for [facility] today on a 5150 for gravely disabled. Pt has been unable to care for himself. He is unable to verbalize a viable plan for food, clothing, and snf. Pt is responding to internal stimuli. Pt repeatedly comes to the [place] crisis unit begging for food with significant weight loss.. Pt unable to manage finances and is disheveled and unkempt. The county is seeking conservQwbcghip and need his 5250 faxed to them at [phone] to start T-con paperwork. Pt has history of schizophrenia and bipolar disorder. Assessment What has happened this shift: Pt. is on LOS. Pt. asleep at start of shift. Pt. awake for breakfast and medications. Pt. took all medications and ate all meals in the community room. Pt. went back to bed after breakfast. Pt. awoke and requested to go home. Pt. informed that the he is conserved and must wait for his court hearing, pt. became upset but was able to calm down, pt. then fell asleep. Pt. continued to be labile throughout the shift, demanding food and to go home, when pt. does not accept no for an answer. In the afternoon pt. told this RN that he wanted to leave right now. When told no pt. postured at this RN as if he was going to hit him. Pt. was then told to go to his room immediately, pt. began yelling and swearing. When other staff came for support pt. postured, pulling fist back as if he was going to strike. Pt. given PRN Haldol 5mg, Ativan 2mg, Benadryl 50mg, and Cogentin 0.5mg. S/I, H/I: Denies A/VH: Denies. Sleep: Pt. napped intermittently throughout the day. ADL's: Independent with prompting. Group attendance: No Were meds taken: Yes Any med S/E: Pt. Some drooling. Sedation. Mental Status Exam Appearance: Clean, disheveled, wearing street clothes. Eye contact: Poor. Behavior: Sleeping, angry, posturing, threatening, laughing and joking, child-like, anxious, depressed Speech: Clear, loud at times, then normal. Mood: Labile Affect: Congruent with mood. Thought process: Circumstantial, perseverative, thought blocking. Thought Content: Angry over his hospitalization. Focused on discharge Cognition: Oriented to person and place. Insight Poor. Judgment: Poor. Interventions PRN's used: Haldol 5mg, Ativan 2mg, Benadryl 50mg, Cogentin 0.5mg Therapeutic interventions: 1:1 therapeutic assessment, medication administration, monitored for change in behavior, provided active listening, positive feedback, reassurance, encouragement Q15 minute safety checks. Justification of Continued Inpatient Treatment: Pt needs a safe and supportive environment to interrupt current crisis. Gravely disabled and is now a T-CON.
[2019-12-14 20:21] VITALS: BP 122/70
[2019-12-14] MEDS: traZODone 50mg tablet PO SCH (20:25)
--- NOTE | 2019-12-14 23:56 | NUR ---
Nursing Progress Note: Legal hold: T-CON Client on involuntary status for GD. Report received from FRANCISCO J Robertson with use of SBAR. Why are they here: Pt admitted to [facility] for [facility] today on a 5150 for gravely disabled. Pt has been unable to care for himself. He is unable to verbalize a viable plan for food, clothing, and long-term. Pt is responding to internal stimuli. Pt repeatedly comes to the [place] [facility] crisis unit begging for food with significant weight loss.. Pt unable to manage finances and is disheveled and unkempt. The [place] is [place] and need his 5250 faxed to them at [phone] to start T-con paperwork. Pt has history of schizophrenia and bipolar disorder. Assessment What has happened this shift: Pt. is on LOS. Pt Was up and in group room watching tv. Pt was in a good mood with no outburst this shift. He was up for snacks and medication then went to bed. He states that he wants to go home "I miss my family." Pt continues to have child like behavior and have outburst when he dose not get what he wants. S/I, H/I: Denies A/VH: Denies. Sleep: Pt. napped intermittently throughout the day. ADL's: Independent with prompting. Group attendance: No Were meds taken: Yes Any med S/E: Pt. Some drooling. Sedation. Mental Status Exam Appearance: Clean, disheveled, wearing street clothes. Eye contact: Poor. Behavior: Sleeping, angry, posturing, threatening, laughing and joking, child-like, anxious, depressed Speech: Clear, loud at times, then normal. Mood: Labile Affect: Congruent with mood. Thought process: Circumstantial, perseverative, thought blocking. Thought Content: Angry over his hospitalization. Focused on discharge Cognition: Oriented to person and place. Insight Poor. Judgment: Poor. Interventions PRN's used: none this shift. Therapeutic interventions: 1:1 therapeutic assessment, medication administration, monitored for change in behavior, provided active listening, positive feedback, reassurance, encouragement Q15 minute safety checks. Justification of Continued Inpatient Treatment: Pt needs a safe and supportive environment to interrupt current crisis. Gravely disabled and is now a T-CON.
[2019-12-15] MEDS: lithium carbonate 150mg capsule PO SCH ×3 (07:23→20:05)
[2019-12-15] MEDS: propranolol 10mg tablet PO SCH ×3 (07:24→20:06)
[2019-12-15] MEDS: divalproex sod 250mg ER (24-hour) tablet PO SCH ×4 (07:24→17:22)
[2019-12-15] MEDS: quetiapine 100mg tablet PO SCH ×3 (07:25→20:05)
[2019-12-15] MEDS: LORazepam 1 MG tablet PO SCH ×3 (07:25→20:05)
[2019-12-15 07:49] VITALS: BP 107/71
[2019-12-15] MEDS: nicotine 21mg patch - 24 hr TD SCH (08:00)
[2019-12-15] MEDS ORDERED: haloperidol lactate 5mg/ml inj ONE (12:54)
[2019-12-15] MEDS ORDERED: diphenhydrAMINE 50 mg/ml inj ONE (12:54)
--- NOTE | 2019-12-15 13:11 | NUR ---
Agitation: Pt yelling and cursing. Pt slamming his door closed. Upon arrival at pts room he is mad stating "You guys are always mean to me." Attempting to deescalate pt and find a solution to his chronic outburts of profanity and aggression. Pt just keeps saying "Leave me the fuck alone. Get out of my face." Attempted to speak to pt about the rules and expectations for him. Pt then jumps out of bed and charges at this nurse. Pt taken down to his bed while pt trying to punch and kick. Elvis mcmahan called and security and engineers arrive immediately. Pt given IM Benadryl 50mg, Haldol 10mg, Ativan 2mg. Pt was crying when security arrived so decided to just medicate and not restrain. Pt did not resist the IM shots.
[2019-12-15] MEDS: LORazepam 2 mg/ml vial IM PRN (13:42)
--- NOTE | 2019-12-15 17:16 | NUR ---
Nursing Progress Note: Legal hold: T-CON Client on involuntary status for GD. Report received from FRANCISCO J Young with use of SBAR. Why are they here: Pt admitted to [facility] for Behavioral health today on a 5150 for gravely disabled. Pt has been unable to care for himself. He is unable to verbalize a viable plan for food, clothing, and residential. Pt is responding to internal stimuli. Pt repeatedly comes to the [place] crisis unit begging for food with significant weight loss.. Pt unable to manage finances and is disheveled and unkempt. The county is seeking conservGemSharehip and need his 5250 faxed to them at [phone] to start T-con paperwork. Pt has history of schizophrenia and bipolar disorder. Assessment What has happened this shift: Pt. is on LOS. Pt. awake at start of shift and asking for food. Pt. reminded that breakfast will arrive shortly. Pt. went back to sleep. Pt. awoke for breakfast. Pt. took all AM medications and then went back to sleep. Pt. awoke after about an hour requesting to go home, but went back to sleep. Pt. awoke again but became more agitated, yelling, I want to go! RN attempted to call pt.s sister to help him calm down but she did not strip picker. Pt. given a snack and calmed down. While this RN was on lunch, pt. reportedly became aggressive, demanding to go home and yelling, and becoming threatening, posturing, and lunging at staff. A code barbie was called and pt. was given Haldol 10mg, Ativan 2mg, Benadryl 50mg IM with moderate effect. Pt. began to cry and his sister was contacted, pt. was comforted by this. In the afternoon pt. was sedated but did not appear to sleep, getting up multiple times to request food. Pt. took a shower. Pt. in a more cheerful mood before dinner, pacing in the hallway and singing. Pt. again became agitated when having to wait for dinner. S/I, H/I: Denies A/VH: Denies. Sleep: Pt. napped intermittently throughout the day. ADL's: Independent with prompting. Group attendance: No Were meds taken: Yes Any med S/E: Pt. Some drooling. Sedation. Mental Status Exam Appearance: Clean, disheveled, wearing street clothes. Eye contact: Poor. Behavior: Sleeping, angry, posturing, threatening, crying, depressed, child-like, singing, anxious Speech: Clear, loud at times, yelling, then normal. Mood: Labile Affect: Congruent with mood. Thought process: Circumstantial, perseverative, thought blocking. Thought Content: Angry over his hospitalization. Focused on discharge Cognition: Oriented to person and place. Insight Poor. Judgment: Poor. Interventions PRN's used: Haldol 10mg, Ativan 2mg, Benadryl 50mg IM. Therapeutic interventions: 1:1 therapeutic assessment, medication administration, monitored for change in behavior, provided active listening, positive feedback, reassurance, encouragement Q15 minute safety checks. Justification of Continued Inpatient Treatment: Pt needs a safe and supportive environment to interrupt current crisis. Gravely disabled and is now a T-CON.
[2019-12-15 19:18] VITALS: BP 131/79
[2019-12-15] MEDS: traZODone 50mg tablet PO SCH (20:05)
[2019-12-15] MEDS: mineral oil/petrolatum, white cream 113gm jar TP SCH (20:06)
--- NOTE | 2019-12-15 23:30 | NUR ---
Nursing Progress Note Legal hold: 5250 for gravely disabled Report received from Marcelo MARX with use of SBAR Why are they here: Pt admitted to [facility] for Behavioral health today on a 5150 for gravely disabled. Pt has been unable to care for himself. He is unable to verbalize a viable plan for food, clothing, and prison. Pt is responding to internal stimuli. Pt repeatedly comes to the [place] crisis unit begging for food with significant weight loss.. Pt unable to manage finances and is disheveled and unkempt. The county is seeking conservatorship and need his 5250 faxed to them at [phone] to start T-con paperwork. Pt has history of schizophrenia and bipolar disorder. Assessment What has happened this shift: The patient appeared to be in good spirits this shift. He had no agitated or uncooperative behaviors. He was cooperative with the 1:1 staffing but was mildly flirtatious with the female staff member assigned the one to one. He complained of always feeling hungry. He stated he felt "a little depressed" and "I hate being stuck in these types of homes" When asked where he would go if he were not here he stated, "I would go where no one could find me" He admits to auditory hallucinations. When asked if the voices were any less than on admit he replied "I don't know" S/I, H/I: none reported A/VH: Reports auditory hallucinations ADL's: Prompting for ADLs. Were meds taken: The patient is medication compliant Any med S/E none report or observed Mental Status Exam Appearance: Wearing street clothes with close cut hair style Eye contact: WNL Behavior: Child like. Cooperative Speech: Spontaneous Mood: See above note Affect: Congruent to mood Thought process: limited focus Thought Content: focused about wanting to leave at times Cognition: confused "I've been here 9 days" Insight: Poor Judgment: Poor PRN's used: none Justification of Continued Inpatient Treatment: The patient remains gravely disabled and is unable to verbalize a reasonable plan to provide for his food, prison or clothing if he were to leave the inpatient unit.
[2019-12-16] MEDS: LORazepam 1 MG tablet PO SCH ×3 (07:27→20:05)
[2019-12-16] MEDS: propranolol 10mg tablet PO SCH ×3 (07:28→20:04)
[2019-12-16] MEDS: divalproex sod 250mg ER (24-hour) tablet PO SCH ×3 (07:28→19:00)
[2019-12-16] MEDS: lithium carbonate 150mg capsule PO SCH ×3 (07:28→20:04)
[2019-12-16] MEDS: quetiapine 100mg tablet PO SCH ×3 (07:28→20:05)
[2019-12-16] MEDS: nicotine 21mg patch - 24 hr TD SCH (07:29)
[2019-12-16] MEDS: mineral oil/petrolatum, white cream 113gm jar TP SCH ×2 (07:33→20:05)
[2019-12-16 08:51] VITALS: BP 145/90
--- NOTE | 2019-12-16 11:16 | NUR ---
CM Received copy of T-Con paperwork from [facility]. placed in pt's binder. Sheridan Obrien ASSISTANT PROFESSOR Addendum: 12/16/19 at 1117 by Sheridan Obrien SS Amended: Links added.
--- NOTE | 2019-12-16 15:34 | NUR ---
Nursing Progress Note [facility] Legal hold: 5250 for gravely disabled Report received from Hannah MARX with use of SBAR Why are they here: Pt admitted to [facility] for Behavioral health today on a 5150 for gravely disabled. Pt has been unable to care for himself. He is unable to verbalize a viable plan for food, clothing, and fpc. Pt is responding to internal stimuli. Pt repeatedly comes to the [place] crisis unit begging for food with significant weight loss.. Pt unable to manage finances and is disheveled and unkempt. The county is seeking conservatorship and need his 5250 faxed to them at [phone] to start T-con paperwork. Pt has history of schizophrenia and bipolar disorder. Assessment What has happened this shift: Client was in bed resting to begin this shift. He remains on LOS for safety. Compliant with medications and assessment this am. Came to group room for breakfast and then went to room to rest. He remains in his bed at 0940 hours. Client has been in his bed all am with one exception and that was for snacks. His unit behaviors appear to have improved and he has had no loud outbursts as of this writing at 1130 hours. Client will be permitted to consume his noon meal in his room due to behavioral issues. Client has had a much better shift than previous with this scenario writer. S/I, H/I: none reported A/VH: Reports auditory hallucinations ADL's: Prompting for ADLs. Were meds taken: The patient is medication compliant Any med S/E none report or observed Mental Status Exam Appearance: Wearing street clothes with close cut hair style Eye contact: WNL Behavior: Child like. Cooperative Speech: Spontaneous Mood: See above note Affect: Congruent to mood Thought process: limited focus Thought Content: focused about wanting to leave at times Cognition: Insight: Poor Judgment: Poor PRN's used: none Justification of Continued Inpatient Treatment: The patient remains gravely disabled and is unable to verbalize a reasonable plan to provide for his food, fpc or clothing if he were to leave the inpatient unit.
[2019-12-16] MEDS: traZODone 50mg tablet PO SCH (20:05)
[2019-12-16 20:06] VITALS: BP 111/50
--- NOTE | 2019-12-16 22:42 | NUR ---
Nursing Progress Note Legal hold: 5250 for gravely disabled Report received from FRANCISCO J Brizuela with use of SBAR Why are they here: Pt admitted to [facility] for Behavioral health today on a 5150 for gravely disabled. Pt has been unable to care for himself. He is unable to verbalize a viable plan for food, clothing, and halfway. Pt is responding to internal stimuli. Pt repeatedly comes to the [place] crisis unit begging for food with significant weight loss.. Pt unable to manage finances and is disheveled and unkempt. The county is seeking conservatorship and need his 5250 faxed to them at [phone] to start T-con paperwork. Pt has history of schizophrenia and bipolar disorder. Assessment What has happened this shift: Patient ambulated halls following shift change. A sitter is provided for line of sight. Patient primarily isolated in his room. On occasion patient seemed to respond to internal stimuli and had some verbal outbursts. No labile moments noted. Patient is cooperative with this health underwriter. He is medication compliant. When asked how he is doing the patient just replied "I want to go home." The patient is reassured that he is in a safe place and that he is doing better daily. S/I, H/I: Patient denies. A/VH: Denies. Internal stimuli noted. ADL's: Prompting for ADLs. Were meds taken: The patient is medication compliant. Any med S/E none report or observed. Mental Status Exam Appearance: Wearing street clothes with close cut hair style. Eye contact: Good. Behavior: Child like. Cooperative. Speech: Within normal limits. Mood: Depressed with some brightening. Affect: Congruent to mood. Thought process: limited focus. Thought Content: Wants to go home. Cognition: Alert. Insight: Poor. Judgment: Poor. PRN's used: None. Justification of Continued Inpatient Treatment: The patient remains gravely disabled and is unable to verbalize a reasonable plan to provide for his food, halfway or clothing if he were to leave this unit.
[2019-12-17] MEDS: nicotine 21mg patch - 24 hr TD SCH ×2 (08:00→08:08)
[2019-12-17] MEDS: LORazepam 1 MG tablet PO SCH ×3 (08:07→20:01)
[2019-12-17] MEDS: quetiapine 100mg tablet PO SCH ×3 (08:07→20:01)
[2019-12-17] MEDS: divalproex sod 250mg ER (24-hour) tablet PO SCH ×3 (08:07→17:49)
[2019-12-17] MEDS: lithium carbonate 150mg capsule PO SCH ×3 (08:07→20:00)
[2019-12-17] MEDS: propranolol 10mg tablet PO SCH ×3 (08:07→20:01)
[2019-12-17] MEDS: mineral oil/petrolatum, white cream 113gm jar TP SCH ×2 (08:12→19:22)
--- NOTE | 2019-12-17 15:06 | NUR ---
Nursing Progress Note: Legal hold: 5150 Client on involuntary status for GD. Report received from Hannah GLOVER with use of SBAR. Why are they here: Pt admitted to [facility] for Behavioral health on a 5150 for gravely disabled. Pt has been unable to care for himself. He is unable to verbalize a viable plan for food, clothing, and care home. Pt is responding to internal stimuli. Pt repeatedly comes to the [place] crisis unit begging for food with significant weight loss.. Pt unable to manage finances and is disheveled and unkempt. The county is seeking conservatorship and need his 5250 faxed to them at [phone] to start T-con paperwork. Pt has history of schizophrenia and bipolar.. Assessment What has happened this shift: Pt has been up and visible on the unit. Pt remains on Line Of Sight. Pt behavior has been relatively calm with only a few small blowup most of the day. Pt compliant with returning to his room if he yells on the unit. In afternoon, pt was on the phone with his public guardian and got very angry and was escorted to room. Pt was punching the wall and paper towel dispenser. Staff intervened and pt was able to regain control with decreased stimuli and lying on his bed. Pt continues to focus on wanting to go home Pt denies S.I./H.I. and a/v hallucinations. Pt S/I, H/I: Denies A/VH: denies Sleep: 8.75 hours on noc, napped on and off today ADL's: may need encouragement Group attendance: no Were meds taken: Yes Any med S/E no Mental Status Exam Appearance: Disheveled Eye contact: intense at times Behavior: Some agitation Speech: Clear Mood: Anxious Affect: Anxious Thought process: Disorganized Thought Content: Not clear Cognition: May have some deficits Insight Poor Judgment: Poor Interventions PRN's used: Therapeutic interventions: 1:1 therapeutic assessment, medication administration, monitored for change in behavior, provided active listening, positive feedback, reassurance, encouragement, Q15 minute safety checks. Restraints/seclusion/emergency medication: N/A Justification of Continued Inpatient Treatment: Pt need a safe and supportive environment to interrupt current crisis. Gravely disabled may require placement.
[2019-12-17] MEDS: acetaminophen 325mg tablet PO PRN (15:23)
[2019-12-17] MEDS: traZODone 50mg tablet PO SCH (19:20)
[2019-12-17 19:42] VITALS: BP 120/84
--- NOTE | 2019-12-17 23:37 | NUR ---
Nursing Progress Note Legal hold: 5250 Client on involuntary status for GD. Report received from Kasie GLOVER with use of SBAR. Why are they here: Pt admitted to [facility] for Behavioral health today on a 5150 for gravely disabled. Pt has been unable to care for himself. He is unable to verbalize a viable plan for food, clothing, and nursing home. Pt is responding to internal stimuli. Pt repeatedly comes to the [place] crisis unit begging for food with significant weight loss.. Pt unable to manage finances and is disheveled and unkempt. The county is seeking conservatorship and need his 5250 faxed to them at [phone] to start T-con paperwork. Pt has history of schizophrenia and bipolar. Assessment What has happened this shift: Pt was up and active on unit for first hour of shift. Pt was friendly and cooperative, and was seen dancing in the hallway. Pt did have one verbal outburst about wanting to go outside, but was easily able to be redirected. pt was seen interacting with other pt's and was behaving appropriately and accepted hs meds without issue. Pt went to bed without issue and is still on los. S/I, H/I: Denies A/VH: denies Sleep: Currently sleeping, see sleep assessment for total hour ADL's: Requires prompting Group attendance: no Were meds taken: Yes Any med S/E: none noticed Mental Status Exam Appearance: Disheveled Eye contact: poor Behavior: Cooperative, friendly Speech: Slurred Mood: bored Affect: Blunted Thought process: Circumstantial, delusional Thought Content: wants to go outside Cognition: A&Ox2 Insight Poor Judgment: Poor Interventions PRN's used: None Therapeutic interventions: 1:1 therapeutic assessment, medication administration, monitored for change in behavior, provided active listening, positive feedback, reassurance, encouragement Q15 minute safety checks. Restraints/seclusion/emergency medication: None Justification of Continued Inpatient Treatment: Pt need a safe and supportive environment to interrupt current crisis. Gravely disabled may require placement.
[2019-12-18 08:00] VITALS: BP 116/89
[2019-12-18] MEDS: nicotine 21mg patch - 24 hr TD SCH (08:00)
[2019-12-18] MEDS: quetiapine 100mg tablet PO SCH ×3 (08:23→20:02)
[2019-12-18] MEDS: lithium carbonate 150mg capsule PO SCH ×2 (08:23→19:29)
[2019-12-18] MEDS: divalproex sod 250mg ER (24-hour) tablet PO SCH ×3 (08:23→18:03)
[2019-12-18] MEDS: propranolol 10mg tablet PO SCH ×3 (08:23→20:02)
[2019-12-18] MEDS: LORazepam 1 MG tablet PO SCH ×3 (08:27→20:02)
[2019-12-18] MEDS: mineral oil/petrolatum, white cream 113gm jar TP SCH ×2 (08:27→20:00)
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
[2019-12-18] MEDS: acetaminophen 325mg tablet PO PRN (18:42)
[2019-12-18 19:27] VITALS: BP 125/81
[2019-12-18] MEDS: traZODone 50mg tablet PO SCH (19:29)
--- NOTE | 2019-12-18 23:39 | NUR ---
Nursing Progress Note Legal hold: 5250 Client on involuntary status for GD. Report received from Kasie GLOVER with use of SBAR. Why are they here: Pt admitted to [facility] for Behavioral health today on a 5150 for gravely disabled. Pt has been unable to care for himself. He is unable to verbalize a viable plan for food, clothing, and detention. Pt is responding to internal stimuli. Pt repeatedly comes to the [place] crisis unit begging for food with significant weight loss.. Pt unable to manage finances and is disheveled and unkempt. The county is seeking conservatorship and need his 5250 faxed to them at [phone] to start T-con paperwork. Pt has history of schizophrenia and bipolar. Assessment What has happened this shift: Pt was up and active on unit for first couple hours of shift. Pt was happy, laughing and joking with staff all evening. Pt did not have any behavior outbursts and was generally cooperative. Pt asked about getting off of conservativeship and was told that he will have a hearing to contest it if he wishes to do so. Pt accepted hs meds without issue. S/I, H/I: Denies A/VH: denies Sleep: Currently sleeping, see sleep assessment for total hour ADL's: Requires prompting Group attendance: no Were meds taken: Yes Any med S/E: none noticed Mental Status Exam Appearance: Disheveled Eye contact: poor Behavior: Cooperative, friendly Speech: Slurred Mood: bored Affect: Blunted Thought process: Circumstantial, delusional Thought Content: wants to go outside Cognition: A&Ox2 Insight Poor Judgment: Poor Interventions PRN's used: None Therapeutic interventions: 1:1 therapeutic assessment, medication administration, monitored for change in behavior, provided active listening, positive feedback, reassurance, encouragement Q15 minute safety checks. Restraints/seclusion/emergency medication: None Justification of Continued Inpatient Treatment: Pt need a safe and supportive environment to interrupt current crisis. Gravely disabled may require placement.
[2019-12-19 08:00] VITALS: BP 134/70
[2019-12-19] MEDS: nicotine 21mg patch - 24 hr TD SCH (08:00)
[2019-12-19] MEDS: LORazepam 1 MG tablet PO SCH ×3 (08:28→20:22)
[2019-12-19] MEDS: divalproex sod 250mg ER (24-hour) tablet PO SCH ×3 (08:29→17:55)
[2019-12-19] MEDS: propranolol 10mg tablet PO SCH ×3 (08:29→20:22)
[2019-12-19] MEDS: lithium carbonate 150mg capsule PO SCH ×2 (08:29→20:22)
[2019-12-19] MEDS: quetiapine 100mg tablet PO SCH ×3 (08:30→20:23)
[2019-12-19] MEDS: mineral oil/petrolatum, white cream 113gm jar TP SCH ×2 (08:32→20:23)
--- NOTE | 2019-12-19 10:27 | NUR ---
F/u (12/18): Pt PO 75-100% avg meals w/ double proteins TID meeting needs. LBM 12/17. Noted +9kg wt gain past 2 weeks standing scales; unsure if accurate given significant gain unlikely in such short time frame. No nutrition concerns at this time. Will continue to monitor. Recommendations: 1) Continue regular diet 2) Double eggs q breakfast, double meat BIDLD per diet order 3) Bowel care PRN 4) Scaled weights per rx Addendum: 12/19/19 at [address] Amended: Links added.
--- NOTE | 2019-12-19 11:33 | NUR ---
Nursing Progress Note: Legal hold: T-Con Client on involuntary status for GD Report received from nurse with use of SBAR: Yanni Her RN Why are they here: Pt admitted to [place] for [facility] health on a 5150 for gravely disabled. Pt has been unable to care for himself. He is unable to verbalize a viable plan for food, clothing, and half-way. Pt is responding to internal stimuli. Pt repeatedly comes to the [place] Crisis Unit begging for food with significant weight loss.. Pt unable to manage finances and is disheveled and unkempt. Pt has history of schizophrenia and bipolar. Assessment What has happened this shift: Received pt. sleeping in bed at the beginning of the shift, he awoke late for breakfast in the Group Room. After breakfast, pt. retreated back to bed, he continues on close observation for safety precautions. 1:1 completed at bedside, pt. greets this typewriter operator automatic appropriately. He presents as cooperative, restless, anxious, impulsive, distractible, and guarded. During assessment, pt. is A&O X2, he reports he is unaware of which hospital he is at, and when questioned by this typewriter operator automatic regarding why he is here, pt. states, "I don't know, for conservatorship?" Pt. denies S/I, H/I, or A/V/COTA, however appears to be internally preoccupied at times MAURICE talking aloud to himself and distractible. When questioned regarding anxiety and depression, pt. states, "A little of both," r/t being locked in a facility. Pt. reports he would rather be outside, but continues to be unable to formulate a plan for food, clothing, or half-way. Pt's mood continues to be labile at times, and he is impulsive and becomes easily agitated, however he is able to be redirected as needed. A few agitated outbursts exhibited this shift, but pt. is able to be redirected and retreats to his room. S/I, H/I: Denies A/VH: Denies, however appears to be internally preoccupied at times MAURICE talking aloud to himself and distractible Sleep: Pt. reports he slept well, denies any nightmares, sleep hours are 8. ADL's: Requires direction from staff Group attendance: Pt. attempts to attend part of group, however is unable to do so r/t his distractibility Were meds taken: Pt. refuses Nicotine Patch Any med S/E: None Mental Status Exam Appearance: Somewhat disheveled, however appropriately dressed Eye contact: Fair, intense at times Behavior: Cooperative, restless, anxious, impulsive, distractible, and guarded Speech: Varies between soft and difficult to understand, to loud, almost shouting at times. Mood: Anxious and restless, however able to be redirected Affect: Labile Thought process: Poverty of thought Thought Content: Possible A/V/COTA, and preoccupation with desire to discharge Cognition: A&O X2 (not to place or reason here) Insight: Poor Judgment: Poor Interventions PRN's used: None Therapeutic interventions: Introduced self and attempted to establish rapport, ensured contract for safety, maintained a safe and therapeutic environment, provided clear and simple instructions, attempted to orient to reality, monitored behaviors and need for intervention, provided redirection as needed, and maintained close observation per safety precautions. Restraints/seclusion/emergency medication: N/A Justification of Continued Inpatient Treatment: RUPA Fonseca, pt. continues to requires a safe and supportive environment while awaiting placement by conservator.
[2019-12-19 12:00] VITALS: BP 122/73
[2019-12-19] MEDS: acetaminophen 325mg tablet PO PRN (18:30)
[2019-12-19 19:00] VITALS: BP 152/72
[2019-12-19] MEDS: diphenhydrAMINE 25mg capsule PO PRN (19:35)
[2019-12-19] MEDS: traZODone 50mg tablet PO SCH (20:21)
--- NOTE | 2019-12-20 01:04 | NUR ---
Nursing Progress Note: Legal hold: T-Con Client on involuntary status for GD Report received from nurse with use of SBAR: Kasie RN Why are they here: Pt admitted to [place] for [facility]al health on a 5150 for gravely disabled. Pt has been unable to care for himself. He is unable to verbalize a viable plan for food, clothing, and residential. Pt is responding to internal stimuli. Pt repeatedly comes to the [facility] begging for food with significant weight loss.. Pt unable to manage finances and is disheveled and unkempt. Pt has history of schizophrenia and bipolar. Assessment What has happened this shift: Pt was up and walking in the lee social with staff and peers. Pt would get agitated several times during the shift about being board or thinking peers or staff were talking about him. He was very redirectable talked about how he likes fishing and getting [place] and family. Pt continues to be unable to formulate a plan for food, clothing, or residential. Pt is labile at times, and impulsive and becomes easily agitated. S/I, H/I: Denies A/VH: Denies, however appears to be internally preoccupied at times MAURICE talking aloud to himself and distractible Sleep: Pt. reports he slept well, denies any nightmares, sleep hours are 8. ADL's: Requires direction from staff Group attendance: Pt. attempts to attend part of group, however is unable to do so r/t his distractibility Were meds taken: Pt. refuses Nicotine Patch Any med S/E: None Mental Status Exam Appearance: Somewhat disheveled, however appropriately dressed Eye contact: Fair, intense at times Behavior: Cooperative, restless, anxious, impulsive, distractible, and guarded Speech: Varies between soft and difficult to understand, to loud, almost shouting at times. Mood: Anxious and restless, however able to be redirected Affect: Labile Thought process: Poverty of thought Thought Content: Possible A/V/COTA, and preoccupation with desire to discharge Cognition: A&O X2 (not to place or reason here) Insight: Poor Judgment: Poor Interventions PRN's used: None Therapeutic interventions: Introduced self and attempted to establish rapport, ensured contract for safety, maintained a safe and therapeutic environment, provided clear and simple instructions, attempted to orient to reality, monitored behaviors and need for intervention, provided redirection as needed, and maintained close observation per safety precautions. Restraints/seclusion/emergency medication: N/A Justification of Continued Inpatient Treatment: Per RUPA Ruiz, pt. continues to requires a safe and supportive environment while awaiting placement by conservator.
[2019-12-20] MEDS: propranolol 10mg tablet PO SCH ×3 (07:37→20:24)
[2019-12-20] MEDS: divalproex sod 250mg ER (24-hour) tablet PO SCH ×3 (07:37→18:55)
[2019-12-20] MEDS: lithium carbonate 150mg capsule PO SCH ×2 (07:37→20:22)
[2019-12-20] MEDS: quetiapine 100mg tablet PO SCH ×3 (07:37→20:22)
[2019-12-20] MEDS: LORazepam 1 MG tablet PO SCH ×3 (07:38→20:23)
[2019-12-20] MEDS: nicotine 21mg patch - 24 hr TD SCH (07:40)
[2019-12-20] MEDS: mineral oil/petrolatum, white cream 113gm jar TP SCH ×2 (07:43→20:00)
[2019-12-20 07:48] VITALS: BP 128/86
[2019-12-20] MEDS ORDERED: paliperidone palmitate inj 234 MG/1.5 ML SYRINGE IM SCH (12:00)
[2019-12-20] MEDS ORDERED: haloperidol lactate 5mg/ml inj ONE (14:41)
[2019-12-20] MEDS ORDERED: diphenhydrAMINE 50 mg/ml inj ONE (14:41)
[2019-12-20] MEDS: LORazepam 2 mg/ml vial IM PRN (15:09)
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
[2019-12-20 20:00] VITALS: BP 132/85
[2019-12-20] MEDS: traZODone 50mg tablet PO SCH (20:23)
--- NOTE | 2019-12-21 00:49 | NUR ---
Nursing Progress Note: [facility] Legal hold: T-Con Client on involuntary status for GD Report received from nurse with use of SBAR: Kasie RN Why are they here: Pt admitted to [place] for [facility] health on a 5150 for gravely disabled. Pt has been unable to care for himself. He is unable to verbalize a viable plan for food, clothing, and half-way. Pt is responding to internal stimuli. Pt repeatedly comes to the [place] [facility] begging for food with significant weight loss.. Pt unable to manage finances and is disheveled and unkempt. Pt has history of schizophrenia and bipolar. Assessment What has happened this shift: Pt in bed asleep at start of shift.Pt sedate and in bed with sitter out side of his door way. Pt was awakened for his hs medication and returned to sleep. No aggressive Bx note this shift. S/I, H/I: Denies A/VH: Denies, however appears to be internally preoccupied at times MAURICE talking aloud to himself and distractible Sleep: ADL's: Requires direction from staff Group attendance: no Were meds taken: Pt. refuses Nicotine Patch Any med S/E: None Mental Status Exam Appearance: Somewhat disheveled, however appropriately dressed Eye contact: Fair, intense at times Behavior: Cooperative, restless, anxious, impulsive, distractible, and guarded Speech: Varies between soft and difficult to understand, to loud, almost shouting at times. Mood: Anxious and restless, however able to be redirected Affect: Labile Thought process: Poverty of thought Thought Content: Possible A/V/COTA, and preoccupation with desire to discharge Cognition: A&O X2 (not to place or reason here) Insight: Poor Judgment: Poor Interventions PRN's used: None Therapeutic interventions: Introduced self and attempted to establish rapport, ensured contract for safety, maintained a safe and therapeutic environment, provided clear and simple instructions, attempted to orient to reality, monitored behaviors and need for intervention, provided redirection as needed, and maintained close observation per safety precautions. Restraints/seclusion/emergency medication: N/A Justification of Continued Inpatient Treatment: Per RUPA Ruiz, pt. continues to requires a safe and supportive environment while awaiting placement by conservator.
[2019-12-21] MEDS: nicotine 21mg patch - 24 hr TD SCH (08:00)
[2019-12-21] MEDS: lithium carbonate 150mg capsule PO SCH ×2 (08:16→19:31)
[2019-12-21] MEDS: LORazepam 1 MG tablet PO SCH ×3 (08:16→19:32)
[2019-12-21] MEDS: divalproex sod 250mg ER (24-hour) tablet PO SCH ×3 (08:17→17:48)
[2019-12-21] MEDS: propranolol 10mg tablet PO SCH ×3 (08:17→19:32)
[2019-12-21] MEDS: quetiapine 100mg tablet PO SCH ×3 (08:17→19:32)
[2019-12-21] MEDS: mineral oil/petrolatum, white cream 113gm jar TP SCH ×2 (08:22→19:32)
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
[2019-12-21] MEDS: NICOTINE POLACRILEX 2 MG LOZENGE BC PRN ×2 (17:00→21:09)
[2019-12-21] MEDS: traZODone 50mg tablet PO SCH (19:31)
[2019-12-21] MEDS: LORazepam 1 MG tablet PO PRN (19:33)
[2019-12-21] MEDS: diphenhydrAMINE 25mg capsule PO PRN (19:33)
[2019-12-21 20:00] VITALS: BP 116/74
[2019-12-21] MEDS: acetaminophen 325mg tablet PO PRN (21:38)
--- NOTE | 2019-12-22 01:00 | NUR ---
Nursing Progress Note: [facility] Legal hold: T-Con Client on involuntary status for GD Report received from nurse with use of SBAR: Kasie RN Why are they here: Pt admitted to [place] for [facility] health on a 5150 for gravely disabled. Pt has been unable to care for himself. He is unable to verbalize a viable plan for food, clothing, and custodial. Pt is responding to internal stimuli. Pt repeatedly comes to the [place] [facility] begging for food with significant weight loss.. Pt unable to manage finances and is disheveled and unkempt. Pt has history of schizophrenia and bipolar. Assessment What has happened this shift: Pt was up walking the lee with his sitter at the start of shift. He asked for a snack and became inpatient when told it would be a few minuets I'm helping another patient.He went back to his room and started to yell and needed to be redirected. Pt's meds where given early along with his prns for agitation and calmed down . Pt went to bed after snack. S/I, H/I: Denies A/VH: Denies, however appears to be internally preoccupied at times MAURICE talking aloud to himself and distractible Sleep: ADL's: Requires direction from staff Group attendance: no Were meds taken: Pt. refuses Nicotine Patch Any med S/E: None Mental Status Exam Appearance: Somewhat disheveled, however appropriately dressed Eye contact: Fair, intense at times Behavior: Cooperative, restless, anxious, impulsive, distractible, and guarded Speech: Varies between soft and difficult to understand, to loud, almost shouting at times. Mood: Anxious and restless, however able to be redirected Affect: Labile Thought process: Poverty of thought Thought Content: Possible A/V/COTA, and preoccupation with desire to discharge Cognition: A&O X2 (not to place or reason here) Insight: Poor Judgment: Poor Interventions PRN's used: Ativan ,Benadryl,tylenol Therapeutic interventions: Introduced self and attempted to establish rapport, ensured contract for safety, maintained a safe and therapeutic environment, provided clear and simple instructions, attempted to orient to reality, monitored behaviors and need for intervention, provided redirection as needed, and maintained close observation per safety precautions. Restraints/seclusion/emergency medication: N/A Justification of Continued Inpatient Treatment: Per RUPA Ruiz, pt. continues to requires a safe and supportive environment while awaiting placement by conservator.
[2019-12-22] MEDS: nicotine 21mg patch - 24 hr TD SCH (08:00)
[2019-12-22] MEDS: LORazepam 1 MG tablet PO SCH ×3 (08:16→20:13)
[2019-12-22] MEDS: lithium carbonate 150mg capsule PO SCH ×2 (08:17→20:14)
[2019-12-22] MEDS: divalproex sod 250mg ER (24-hour) tablet PO SCH ×3 (08:17→17:56)
[2019-12-22] MEDS: propranolol 10mg tablet PO SCH ×3 (08:17→20:15)
[2019-12-22] MEDS: quetiapine 100mg tablet PO SCH ×3 (08:17→20:16)
[2019-12-22] MEDS: mineral oil/petrolatum, white cream 113gm jar TP SCH ×2 (08:20→20:16)
[2019-12-22] MEDS: NICOTINE POLACRILEX 2 MG LOZENGE BC PRN (15:49)
[2019-12-22] MEDS: acetaminophen 325mg tablet PO PRN (15:49)
--- NOTE | 2019-12-22 17:21 | NUR ---
Nursing Progress Note: [facility] Legal hold: T-Con Client on involuntary status for GD Report received from nurse with use of SBAR: Hannah MARX Why are they here: Pt admitted to [place] for [facility] health on a 5150 for gravely disabled. Pt has been unable to care for himself. He is unable to verbalize a viable plan for food, clothing, and half-way. Pt is responding to internal stimuli. Pt repeatedly comes to the [place] [facility] begging for food with significant weight loss.. Pt unable to manage finances and is disheveled and unkempt. Pt has history of schizophrenia and bipolar. Assessment What has happened this shift: Received patient asleep in his bed with line of sight staff sitting right at door. Patient awoke for breakfast which he had in his room as he did lunch. Patient took medications without issue including lotion on his feet. Patient did take a shower this morning with minimal staff assistance and encouragement. Patient remained friendly and in a good mood most of the day; laughing, joking and dancing around. Patient denies depression and denies suicidal thoughts. Patient does endorse his sadness regarding missing his family him wanting to get out of here, but he didnt allow himself to escalate with these thoughts like he has in the past. Patient currently denying auditory or visual hallucinations. S/I, H/I: Denies A/VH: Denies, however appears to be internally preoccupied at times MAURICE talking aloud to himself and distractible Sleep: ADL's: Requires direction from staff Group attendance: no Were meds taken: Pt. refuses Nicotine Patch Any med S/E: None Mental Status Exam Appearance: Somewhat disheveled, however appropriately dressed Eye contact: Fair, intense at times Behavior: Cooperative, restless, anxious, impulsive, distractible, and guarded Speech: Varies between soft and difficult to understand, to loud, almost shouting at times. Mood: Anxious and restless, however able to be redirected Affect: Labile Thought process: Poverty of thought Thought Content: Possible A/V/COTA, and preoccupation with desire to discharge Cognition: A&O X2 (not to place or reason here) Insight: Poor Judgment: Poor Interventions PRN's used: None Therapeutic interventions: Introduced self and attempted to establish rapport, ensured contract for safety, maintained a safe and therapeutic environment, provided clear and simple instructions, attempted to orient to reality, monitored behaviors and need for intervention, provided redirection as needed, and maintained close observation per safety precautions. Restraints/seclusion/emergency medication: N/A Justification of Continued Inpatient Treatment: Per RUPA Ruiz, pt. continues to requires a safe and supportive environment while awaiting placement by conservator.
[2019-12-22] MEDS: tizanidine 4mg tablet PO PRN (19:11)
[2019-12-22] MEDS: traZODone 50mg tablet PO SCH (20:13)
[2019-12-22] MEDS: diphenhydrAMINE 25mg capsule PO PRN (20:14)
[2019-12-22 20:29] VITALS: BP 118/66
--- NOTE | 2019-12-23 01:01 | NUR ---
Nursing Progress Note: [facility] Legal hold: T-Con Client on involuntary status for GD Report received from nurse with use of SBAR:Kasie MARX Why are they here: Pt admitted to [place] for Behavioral health on a 5150 for gravely disabled. Pt has been unable to care for himself. He is unable to verbalize a viable plan for food, clothing, and chcf. Pt is responding to internal stimuli. Pt repeatedly comes to the [place] [facility] begging for food with significant weight loss.. Pt unable to manage finances and is disheveled and unkempt. Pt has history of schizophrenia and bipolar. Assessment What has happened this shift: Pt was up and in hallway with sitter. He was very labile this shift. He was less demanding at snack time. He did act out a little for not getting what he asked for right when he asked for it. He yelled at the sitter for following him. He was med compliant and went to bed after med pass. S/I, H/I: Denies A/VH: Denies, however appears to be internally preoccupied at times MAURICE talking aloud to himself and distractible Sleep: ADL's: Requires direction from staff Group attendance: no Were meds taken: Pt. refuses Nicotine Patch Any med S/E: None Mental Status Exam Appearance: Somewhat disheveled, however appropriately dressed Eye contact: Fair, intense at times Behavior: Cooperative, restless, anxious, impulsive, distractible, and guarded Speech: Varies between soft and difficult to understand, to loud, almost shouting at times. Mood: Anxious and restless, however able to be redirected Affect: Labile Thought process: Poverty of thought Thought Content: Possible A/V/COTA, and preoccupation with desire to discharge Cognition: A&O X2 (not to place or reason here) Insight: Poor Judgment: Poor Interventions PRN's used: Benadryl Therapeutic interventions: Introduced self and attempted to establish rapport, ensured contract for safety, maintained a safe and therapeutic environment, provided clear and simple instructions, attempted to orient to reality, monitored behaviors and need for intervention, provided redirection as needed, and maintained close observation per safety precautions. Restraints/seclusion/emergency medication: N/A Justification of Continued Inpatient Treatment: Per RUPA Ruiz, pt. continues to requires a safe and supportive environment while awaiting placement by conservator.
[2019-12-23 08:00] VITALS: BP 134/71
[2019-12-23] MEDS: mineral oil/petrolatum, white cream 113gm jar TP SCH ×2 (08:00→20:26)
[2019-12-23] MEDS: nicotine 21mg patch - 24 hr TD SCH (08:00)
[2019-12-23] MEDS: LORazepam 1 MG tablet PO SCH ×3 (08:25→20:22)
[2019-12-23] MEDS: divalproex sod 250mg ER (24-hour) tablet PO SCH ×3 (08:25→17:03)
[2019-12-23] MEDS: propranolol 10mg tablet PO SCH ×3 (08:26→20:22)
[2019-12-23] MEDS: quetiapine 100mg tablet PO SCH ×3 (08:26→20:22)
[2019-12-23] MEDS: lithium carbonate 150mg capsule PO SCH ×2 (08:26→20:22)
[2019-12-23] MEDS: NICOTINE POLACRILEX 2 MG LOZENGE BC PRN ×3 (11:01→18:10)
[2019-12-23 12:10] VITALS: BP 132/76
[2019-12-23] MEDS: acetaminophen 325mg tablet PO PRN (13:09)
--- NOTE | 2019-12-23 13:56 | NUR ---
CM Presenting Issues: Pt's in the process of being conserved by [facility] as he meets the Gravely Disabled criteria due to his mental illness. In addition, pt has also been determined to meet the DSM-5 criteria for Moderate Intellectual Disability. As a result, pt struggles to manage emotions and behaviors when distressed; often lashes out physically, engages in yelling and crying spells, these bxs requires intensive 1:1 support daily and and frequently as the outbursts appears to be unpredictable. Interventions: SS participated in a MDT consultation to discuss efficacy of current interventions. Per consultation, intensive 1:1 has been most effective w/pt but it is also most challenging for [facility] staff as pt requires 1 staff to be with him during his alert time to provide "in the moment" support for when pt needs redirection. Pt's been responding well to the 1:1 behavioral support/interventions, complying with redirection to head to his room at the beginning of a meltdown so as not to upset other patients. SS also had t/c consultation w/[facility] to get updates on placement efforts. Per t/c, [facility] is sending pt's packet to all the [facility] but have not had any response yet. SS discussed the benefit of referring pt to [facility] for an eval as pt's been determined to meet DSM 5 criteria for ID. [facility] Pt will explore this option. Plan: SS will continue to monitor pt's progress and engage [facility] & [facility] in dcp activities. Sheridan Obrien LCSW Addendum: 12/23/19 at 1456 by Sheridan Obrien SS Amended: Links added.
[2019-12-23] MEDS: diphenhydrAMINE 25mg capsule PO PRN (14:57)
[2019-12-23] MEDS: LORazepam 1 MG tablet PO PRN (14:58)
[2019-12-23] MEDS: tizanidine 4mg tablet PO PRN (16:03)
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
[2019-12-23] MEDS: traZODone 50mg tablet PO SCH (20:22)
[2019-12-23 20:41] VITALS: BP 142/81
--- NOTE | 2019-12-23 22:33 | NUR ---
Nursing Progress Note: Legal hold: T-Con Client on involuntary status for GD Report received from nurse with use of SBAR: Hannah RN Why are they here: Pt admitted to [facility] for [facility] health on a 5150 for gravely disabled. Pt has been unable to care for himself. He is unable to verbalize a viable plan for food, clothing, and fdc. Pt is responding to internal stimuli. Pt repeatedly comes to the [facility] begging for food with significant weight loss.. Pt unable to manage finances and is disheveled and unkempt. Pt has history of schizophrenia and bipolar. Assessment What has happened this shift: Pt up and visible on the unit at the beginning of the shift. Pt remains on LOS. Pt ate snacks at 1999 then requested his HS medications which were given to him and he went to bed and quickly fell asleep. Pt had remained peaceful this evening while awake. S/I, H/I: Denies A/VH: Denies, Sleep: asleep by 2044 ADL's: Requires direction from staff Group attendance: no Were meds taken: Pt. refuses Nicotine Patch Any med S/E: None Mental Status Exam Appearance: Somewhat disheveled, however appropriately dressed Eye contact: Fair, intense at times Behavior: Cooperative, restless, anxious, impulsive, distractible, and guarded Speech: Varies between soft and difficult to understand, to loud, almost shouting at times. Mood: Anxious and restless, however able to be redirected Affect: Labile Thought process: Poverty of thought Thought Content: Possible A/V/COTA, and preoccupation with desire to discharge Cognition: A&O X2 (not to place or reason here) Insight: Poor Judgment: Poor Interventions PRN's used: None Therapeutic interventions: Introduced self and attempted to establish rapport, ensured contract for safety, maintained a safe and therapeutic environment, provided clear and simple instructions, attempted to orient to reality, monitored behaviors and need for intervention, provided redirection as needed, and maintained close observation per safety precautions. Restraints/seclusion/emergency medication: N/A Justification of Continued Inpatient Treatment: Per RUPA Ruiz, pt. continues to requires a safe and supportive environment while awaiting placement by conservator.
[2019-12-24] MEDS: nicotine 21mg patch - 24 hr TD SCH (08:00)
[2019-12-24] MEDS: lithium carbonate 150mg capsule PO SCH ×2 (08:32→20:28)
[2019-12-24] MEDS: quetiapine 100mg tablet PO SCH ×3 (08:33→20:28)
[2019-12-24] MEDS: LORazepam 1 MG tablet PO SCH ×3 (08:33→20:28)
[2019-12-24] MEDS: propranolol 10mg tablet PO SCH ×3 (08:33→20:28)
[2019-12-24] MEDS: divalproex sod 250mg ER (24-hour) tablet PO SCH ×3 (08:33→18:11)
[2019-12-24] MEDS: mineral oil/petrolatum, white cream 113gm jar TP SCH ×2 (08:34→20:32)
[2019-12-24] MEDS: haloperidol 5mg tablet PO PRN (10:44)
[2019-12-24] MEDS: diphenhydrAMINE 25mg capsule PO PRN (10:45)
[2019-12-24] MEDS: LORazepam 1 MG tablet PO PRN ×2 (10:45→18:37)
[2019-12-24] MEDS: acetaminophen 325mg tablet PO PRN ×2 (12:12→18:42)
--- NOTE | 2019-12-24 14:23 | NUR ---
ROBSON Faxed current notes to [facility] to facilitate placement services for patient. Sheridan Obrien [employer] HR REPRESENTATIVE Addendum: 12/24/19 at 1424 by Sheridan Obrien SS Amended: Links added.
--- NOTE | 2019-12-24 14:49 | NUR ---
Wound: Pt found to have bleeding from his R foot. Pt has dry cracking feet . Pt had bleeding from his R greater toe webbing. Cleaned the blood and took picture and applied 2x2 gauze and coban. Encouraged pt to use lotion to prevent his feet from cracking.
--- NOTE | 2019-12-24 15:47 | NUR ---
Nursing Progress Note: Legal hold: T-Con Client on involuntary status for GD Report received from nurse with use of SBAR: Hannah RN Why are they here: Pt admitted to [place] for [facility]al health on a 5150 for gravely disabled. Pt has been unable to care for himself. He is unable to verbalize a viable plan for food, clothing, and [facility]. Pt is responding to internal stimuli. Pt repeatedly comes to the [facility] begging for food with significant weight loss.. Pt unable to manage finances and is disheveled and unkempt. Pt has history of schizophrenia and bipolar. Assessment What has happened this shift: Received pt. sleeping in bed at the beginning of the shift, he awoke late for breakfast in the Group Room. Patient had one outburst this morning in which he received an oral B52 and one outburst in the afternoon which resolved quickly Patient did much better today than yesterday. Patient perseverates on wanting to go home. Patient happy most of the day except for his 2 outbursts. S/I, H/I: Denies A/VH: Denies, does not appear to be internally preoccupied Sleep: a couple of naps ADL's: Requires direction from staff Group attendance: No Were meds taken: yes Any med S/E: None Mental Status Exam Appearance: Disheveled, however appropriately dressed Eye contact: Good Behavior: restless, anxious, impulsive, distractible, and intrusive at times Speech: Varies between soft and difficult to understand, to loud, almost shouting at times. Mood: Anxious and restless, other times animated and joking Affect: Labile Thought process: Poverty of thought Thought Content: Preoccupation with desire to discharge Cognition: A&O X2 (not to place or reason here) Insight: Poor Judgment: Poor Interventions PRN's used: Ativan, Benadryl, Tylenol, and Zanaflex Therapeutic interventions: Maintained a safe and therapeutic environment, ensured contract for safety, provided clear and simple instructions, attempted to orient to reality, monitored behaviors and need for intervention, provided redirection as needed and behavioral limitations, provided education as needed regarding the rules of the unit, and maintained LOS per safety precautions. Restraints/seclusion/emergency medication: N/A Justification of Continued Inpatient Treatment: Pt. continues to requires a safe and supportive environment while awaiting placement by conservator.
[2019-12-24 20:00] VITALS: BP 138/70
[2019-12-24] MEDS: traZODone 50mg tablet PO SCH (20:28)
--- NOTE | 2019-12-25 04:55 | NUR ---
Nursing Progress Note: Legal hold: T-Con Client on involuntary status for GD Report received from nurse with use of SBAR: FRANCISCO J Robertson Why are they here: Pt admitted to [place] for [facility] health on a 5150 for gravely disabled. Pt has been unable to care for himself. He is unable to verbalize a viable plan for food, clothing, and custodial. Pt is responding to internal stimuli. Pt repeatedly comes to the [facility] begging for food with significant weight loss.. Pt unable to manage finances and is disheveled and unkempt. Pt has history of schizophrenia and bipolar. Assessment What has happened this shift: Patient yelling and expressing his dislike for being "stuck" on the unit at the beginning of shift. Patient walked himself to his bedroom where he was able to be verbally redirected briefly by staff and PRN Ativan provided for agitation with positive effect. PRN Tylenol provided for lower back pain with positive effect. Patient napped and easily aroused; participated in assessments and compliant with all medication. Patient provided clean socks and assisted with changing socks post Eucerin cream application. Patient's R top half of foot wrapped during the day and dressing CDI. Patient's bilateral feet remain dry, scaly and cracked. Patient participated in HS snack. Room cleaned, linen changed and patient changed into clean green scrubs prior to going back to bed. Patient does not appear to be having difficulty sleeping. S/I, H/I: Denies A/VH: Denies Sleep: Refer to sleep assessment ADL's: Requires direction from staff Group attendance: No groups this shift Were meds taken: Yes, without hesitation Any med S/E: None reported or observed Mental Status Exam Appearance: Disheveled, wearing clean green scrubs. Eye contact: Good Behavior: Impulsive, cooperative, isolative Speech: Impediment Mood: Labile Affect: Congruent to mood Thought process: Circumstantial Thought Content: Preoccupation with desire to discharge Cognition: A&O X2 (not to place or reason here) Insight: Poor Judgment: Poor Interventions PRN's used: Ativan Therapeutic interventions: Maintained a safe and therapeutic environment, ensured contract for safety, provided clear and simple instructions, attempted to orient to reality, monitored behaviors and need for intervention, provided redirection as needed and behavioral limitations, provided education as needed regarding the rules of the unit, and maintained LOS per safety precautions. Restraints/seclusion/emergency medication: N/A Justification of Continued Inpatient Treatment: Pt. continues to requires a safe and supportive environment while awaiting placement by conservator.
[2019-12-25] MEDS: propranolol 10mg tablet PO SCH ×3 (07:56→20:11)
[2019-12-25] MEDS: divalproex sod 250mg ER (24-hour) tablet PO SCH ×3 (07:56→17:47)
[2019-12-25] MEDS: LORazepam 1 MG tablet PO SCH ×3 (07:56→20:12)
[2019-12-25] MEDS: lithium carbonate 150mg capsule PO SCH ×2 (07:56→20:11)
[2019-12-25] MEDS: quetiapine 100mg tablet PO SCH ×3 (07:57→20:12)
[2019-12-25 08:00] VITALS: BP 131/70
[2019-12-25] MEDS: mineral oil/petrolatum, white cream 113gm jar TP SCH ×2 (08:02→20:12)
[2019-12-25] MEDS: NICOTINE POLACRILEX 2 MG LOZENGE BC PRN ×2 (11:53→15:55)
--- NOTE | 2019-12-25 15:04 | NUR ---
Nursing Progress Note Legal hold: T-Con Client on involuntary status for GD Report received from RN with use of SBAR Why are they here: Pt admitted to [place] for [facility] health on a 5150 for gravely disabled. Pt has been unable to care for himself. He is unable to verbalize a viable plan for food, clothing, and retirement. Pt is responding to internal stimuli. Pt repeatedly comes to the [facility] begging for food with significant weight loss.. Pt unable to manage finances and is disheveled and unkempt. Pt has history of schizophrenia and bipolar. Assessment What has happened this shift: Received Pt sleeping in bed w/o distress, with line of sight staff sitting right at door, at change of shift. Patient awoke for breakfast and ate with others in community room and took AM meds w/o issue. Pt returned to bed. Pt is almost always asking for snacks and drinks. Pt decided not to go out to patio. Pt interacting appropriately with 1:1 staff and walked the unit with headphones, sometimes singing. Pts right foot cleaned and dressed and eucerin cream applied. Pt responded appropriately to limits for most of the day. He showered in the afternoon and was cooperative. Overall a pleasant day for Irineo. He instigates other Pts at times when he thinks he is joking. He gets frustrate at not knowing when he will leave or where he will go. S/I, H/I: Denies A/VH: Denies Sleep: Pt napped today ADL's: Requires direction from staff Group attendance: No Were meds taken: Pt. refuses Nicotine Patch Any med S/E: None Mental Status Exam Appearance: Casual in green scrubs. Not concerned about hygiene Eye contact: Fair, intense gaze when irritated Behavior: Cooperative, restless, anxious, impulsive, distractible, and guarded. Overall labile. Speech: Varies between soft and difficult to understand, to loud, almost shouting at times. Mood: Anxious and restless, however able to be redirected Affect: Labile Thought process: Poverty of thought Thought Content: Possible A/V/COTA, and preoccupation with desire to discharge Cognition: A&O X2 (not to place or reason here) Insight: Poor Judgment: Poor Interventions PRN's used: None Therapeutic interventions: Introduced self and attempted to establish rapport, ensured contract for safety, maintained a safe and therapeutic environment, provided clear and simple instructions, attempted to orient to reality, monitored behaviors and need for intervention, provided redirection as needed, and maintained close observation per safety precautions. Restraints/seclusion/emergency medication: N/A Justification of Continued Inpatient Treatment: Per RUPA Ruiz, pt. continues to requires a safe and supportive environment while awaiting placement by conservator.
[2019-12-25] MEDS: LORazepam 1 MG tablet PO PRN (18:30)
[2019-12-25 19:00] VITALS: BP 123/82
[2019-12-25] MEDS: traZODone 50mg tablet PO SCH ×2 (20:11→21:08)
--- NOTE | 2019-12-26 05:17 | NUR ---
Nursing Progress Note: Legal hold: T-Con Client on involuntary status for GD Report received from nurse with use of SBAR: FRANCISCO J Robertson Why are they here: Pt admitted to [place] for [facility] health on a 5150 for gravely disabled. Pt has been unable to care for himself. He is unable to verbalize a viable plan for food, clothing, and skilled nursing. Pt is responding to internal stimuli. Pt repeatedly comes to the [facility] begging for food with significant weight loss.. Pt unable to manage finances and is disheveled and unkempt. Pt has history of schizophrenia and bipolar. Assessment What has happened this shift: Patient observed escalating, expressing his frustration, at the beginning of shift. PRN Ativan provided with positive effect. Patient participated in cleaning his bedroom, making his bed and helping staff clean up the community room. Patient showered and changed into clean appropriate attire. Patient appears to enjoy rapping/singing for staff. He explained "I don't like listening to other music because I like creating my own stuff." Patient denies SI, HI, A/VH. Patient becomes loud at times but easily redirectable with small simple tasks. He participated in HS snack and brushed teeth after with encouragement from staff. Patient remains compliant with all medication; repeat dose of Trazodone provided as patient c/o difficulty an hour post med pass. Later observed sleeping without signs of difficulty. S/I, H/I: Denies A/VH: Denies Sleep: Refer to sleep assessment ADL's: Requires direction from staff Group attendance: No groups this shift Were meds taken: Yes, without hesitation Any med S/E: None reported or observed Mental Status Exam Appearance: Neat, clean, well groomed and appropriately dressed in personal attire. Eye contact: Good Behavior: Impulsive, cooperative, socializing, helpful Speech: Impediment Mood: Animated Affect: Congruent to mood Thought process: Circumstantial Thought Content: Preoccupation with desire to discharge Cognition: A&O X2 (not to place or reason here) Insight: Poor Judgment: Poor Interventions PRN's used: Ativan and repeat dose of Trazodone Therapeutic interventions: Maintained a safe and therapeutic environment, ensured contract for safety, provided clear and simple instructions, attempted to orient to reality, monitored behaviors and need for intervention, provided redirection as needed and behavioral limitations, provided education as needed regarding the rules of the unit, and maintained LOS per safety precautions. Restraints/seclusion/emergency medication: N/A Justification of Continued Inpatient Treatment: Pt. continues to requires a safe and supportive environment while awaiting placement by conservator.
[2019-12-26] MEDS: LORazepam 1 MG tablet PO SCH ×3 (07:50→21:10)
[2019-12-26] MEDS: lithium carbonate 150mg capsule PO SCH ×2 (07:51→21:09)
[2019-12-26] MEDS: divalproex sod 250mg ER (24-hour) tablet PO SCH ×3 (07:51→17:04)
[2019-12-26] MEDS: propranolol 10mg tablet PO SCH ×3 (07:51→21:09)
[2019-12-26] MEDS: quetiapine 100mg tablet PO SCH ×3 (07:51→21:08)
[2019-12-26 08:00] VITALS: BP 117/80
[2019-12-26] MEDS: mineral oil/petrolatum, white cream 113gm jar TP SCH ×2 (08:02→21:08)
[2019-12-26 15:02] LABS: BASOPHILS # (AUTO) 0.1 X10'3 (0-0.2); BASOPHILS % (AUTO) 0.6 % (0-1); EOSINOPHILS # (AUTO) 0.1 X10'3 (0-0.9); EOSINOPHILS % (AUTO) 0.9 % (0-6); HEMOGLOBIN 14.1 g/dl (14.0-17.9); LYMPHOCYTES # (AUTO) 3.4 X10'3 (1.1-4.8); LYMPHOCYTES % (AUTO) 25.5 % (21-51); MEAN CORPUSCULAR HEMOGLOBIN 31.7 PG (27.0-31.0); MEAN CORPUSCULAR HGB CONC 33.5 g/dL (33.0-36.5); MEAN CORPUSCULAR VOLUME 94.8 FL (78-98); MONOCYTES # (AUTO) 1.1 X10'3 (0-0.9); MONOCYTES % (AUTO) 8.3 % (2-12); NEUTROPHILS # (AUTO) 8.7 X10'3 (1.8-7.7); NEUTROPHILS % (AUTO) 64.7 % (42-75); PLATELET COUNT 245 X10'3 (140-440); RED BLOOD COUNT 4.43 X10'6 (4.70-6.10); RED CELL DISTRIBUTION WIDTH 13.8 % (11.5-14.5); WHITE BLOOD COUNT 13.4 X10'3 (4.5-11.0)
[2019-12-26 15:21] LABS: NUCLEATED RED BLOOD CELLS 1 /100WBC (0-0); PLATELET ESTIMATE NORMAL; TOTAL CELLS COUNTED 100
--- NOTE | 2019-12-26 16:00 | NUR ---
Nursing Progress Note: [facility] Legal hold: T-Con Client on involuntary status for GD Report received from nurse with use of SBAR: Yanni Dumont RN Why are they here: Pt admitted to [place] for [facility] health on a 5150 for gravely disabled. Pt has been unable to care for himself. He is unable to verbalize a viable plan for food, clothing, and snf. Pt is responding to internal stimuli. Pt repeatedly comes to the [facility] begging for food with significant weight loss. Pt unable to manage finances and is disheveled and unkempt. Pt has history of schizophrenia and bipolar. Assessment What has happened this shift: Client was in bed to begin this shift with LOS in place for safety. Client woke for medications and assessment and was compliant with both. Client woke for breakfast and behavior was appropriate. After breakfast, client returned to his room to rest. No somatic complaint as of this writing at 0910 hours. Client has snacked this am and attended a portion of the am group. He ambulated in the halls and became agitated while placing a call. Client was redirected and the phone call was discontinued. Client had no agitation issues after the phone call was terminated. Client ate lunch in his room and then came to assist this sports book writer clean up tables. Client has been visible on unit with LOS present. Client focus remains on food. Client cleaned his room this afternoon and his behaviors are more appropriate than prior shifts. He is focusing more on discharge and aftercare and realizes that a return to his prior situation would just lead to more admissions and more encounters with Law Enforcement. He denies wanting to harm himself or others this shift. No verbal outbursts as of this entry at 1600 hours. S/I, H/I: Denies A/VH: Denies Sleep: Refer to sleep assessment ADL's: Requires direction from staff Group attendance: Were meds taken: Yes Any med S/E: None reported or observed Mental Status Exam Appearance: Neat, clean, well groomed and appropriately dressed in personal attire. Eye contact: Good Behavior: Impulsive, cooperative, socializing, helpful Speech: Impediment Mood: Animated Affect: Congruent to mood Thought process: Circumstantial Thought Content: Preoccupation with desire to discharge Cognition: A&O X2 (not to place or reason here) Insight: Poor Judgment: Poor Interventions PRN's used: Ativan and repeat dose of Trazodone Therapeutic interventions: Maintained a safe and therapeutic environment, ensured contract for safety, provided clear and simple instructions, attempted to orient to reality, monitored behaviors and need for intervention, provided redirection as needed and behavioral limitations, provided education as needed regarding the rules of the unit, and maintained LOS per safety precautions. Restraints/seclusion/emergency medication: N/A Justification of Continued Inpatient Treatment: Pt. continues to requires a safe and supportive environment while awaiting placement by conservator.
[2019-12-26] MEDS: LORazepam 1 MG tablet PO PRN (17:11)
[2019-12-26] MEDS: acetaminophen 325mg tablet PO PRN (17:45)
[2019-12-26] MEDS ORDERED: divalproex sod 250mg ER (24-hour) tablet PO SCH (18:00)
[2019-12-26] MEDS: NICOTINE POLACRILEX 2 MG LOZENGE BC PRN (18:05)
[2019-12-26 20:32] VITALS: BP 128/76
[2019-12-26] MEDS: QUEtiapine 25mg tablet PO SCH (21:08)
--- NOTE | 2019-12-27 05:25 | NUR ---
Nursing Progress Note: Legal hold: T-Con Client on involuntary status for GD Report received from nurse with use of SBAR: FRANCISCO J Robertson Why are they here: Pt admitted to [place] for Behavior[facility] health on a 5150 for gravely disabled. Pt has been unable to care for himself. He is unable to verbalize a viable plan for food, clothing, and prison. Pt is responding to internal stimuli. Pt repeatedly comes to the [place] [facility] begging for food with significant weight loss.. Pt unable to manage finances and is disheveled and unkempt. Pt has history of schizophrenia and bipolar. Assessment What has happened this shift: Patient cleaning his bedroom and making his bed at the beginning of shift. Pleasant and cooperative with care; compliant with medication. Patient feet continue to improve. He got excited for his "foot rub" and brought out his lotion to newswriter several times prior to his med pass. Patent was observed walking without socks on the unit and encouraged to put socks back on and he explained discomfort from the socks being to tight. PCT provided socks that patient reported "better." Patient continues to help staff out with cleaning on the unit and socializing with staff. He participated in HS snack prior to bed; observed sleeping and does not appear to be having difficulty. S/I, H/I: Denies A/VH: Denies Sleep: Refer to sleep assessment ADL's: Requires direction from staff Group attendance: No groups this shift Were meds taken: Yes, without hesitation Any med S/E: None reported or observed Mental Status Exam Appearance: Neat, clean, well groomed and appropriately dressed in personal attire. Eye contact: Good Behavior: Impulsive, cooperative, socializing, helpful Speech: Impediment Mood: Animated Affect: Congruent to mood Thought process: Circumstantial Thought Content: Preoccupation with snacks and "foot rub" Cognition: A&O X2 (not to place or reason here) Insight: Poor Judgment: Poor Interventions PRN's used: None Therapeutic interventions: Maintained a safe and therapeutic environment, ensured contract for safety, provided clear and simple instructions, attempted to orient to reality, monitored behaviors and need for intervention, provided redirection as needed and behavioral limitations, provided education as needed regarding the rules of the unit, and maintained LOS per safety precautions. Restraints/seclusion/emergency medication: N/A Justification of Continued Inpatient Treatment: Pt. continues to requires a safe and supportive environment while awaiting placement by conservator.
[2019-12-27 08:00] VITALS: BP 111/66
[2019-12-27] MEDS: LORazepam 1 MG tablet PO SCH ×3 (08:27→19:49)
[2019-12-27] MEDS: quetiapine 100mg tablet PO SCH ×3 (08:28→19:50)
[2019-12-27] MEDS: QUEtiapine 25mg tablet PO SCH ×3 (08:28→19:47)
[2019-12-27] MEDS: divalproex sod 250mg ER (24-hour) tablet PO SCH ×3 (08:28→17:39)
[2019-12-27] MEDS: propranolol 10mg tablet PO SCH ×3 (08:28→19:47)
[2019-12-27] MEDS: lithium carbonate 150mg capsule PO SCH ×3 (08:29→19:49)
[2019-12-27] MEDS: mineral oil/petrolatum, white cream 113gm jar TP SCH ×2 (08:32→20:00)
--- NOTE | 2019-12-27 09:53 | NUR ---
F/u (12/26): Pt PO 75-100% avg meals w/ double proteins TID meeting needs. LBM 12/24. Noted +13kg wt gain past 3 weeks standing scales; likely not accurate given significant gain unlikely in such a short time frame. No nutrition concerns at this time. Will continue to monitor. Recommendations: 1) Continue regular diet 2) Double eggs q breakfast, double meat BIDLD per diet order 3) Bowel care PRN 4) Scaled weights per rx Addendum: 12/27/19 at [address] Amended: Links added.
[2019-12-27] MEDS: NICOTINE POLACRILEX 2 MG LOZENGE BC PRN ×3 (10:40→18:15)
[2019-12-27] MEDS: tizanidine 4mg tablet PO PRN (10:53)
--- NOTE | 2019-12-27 17:55 | NUR ---
Nursing Progress Note Legal hold: T-Con Client on involuntary status for GD Report received from RN with use of SBAR Why are they here: Pt admitted to [place] for [facility] health on a 5150 for gravely disabled. Pt has been unable to care for himself. He is unable to verbalize a viable plan for food, clothing, and detention. Pt is responding to internal stimuli. Pt repeatedly comes to the [place] [facility] begging for food with significant weight loss.. Pt unable to manage finances and is disheveled and unkempt. Pt has history of schizophrenia and bipolar. Assessment What has happened this shift: Received Pt sleeping in bed w/o distress, with line of sight staff sitting right at door, at change of shift. Patient cooperative with vitals and awoke for breakfast late and ate in his room. Pt took AM meds w/o issue. Irineo returned to bed and napped till mid morning. He used two nicotine lozenges during this shift and no other PRNs. Pt used headphones and paced halls for portion of afternoon, with outbursts of rapping or singing that are loud and perceived by many as aggressive at times. Pt is incapable of conversations longer than a few sentences, and reverts to statements of wanting to leave and smoke. Overall, Pt is getting better at expressing feelings and being sad rather than angry and rageful. Pt did have angry and tearful incident with screaming and yelling in late afternoon. Situation was resolved without PRN meds. S/I, H/I: Denies A/VH: Denies Sleep: Pt napped today ADL's: Requires direction from staff Group attendance: No Were meds taken: Yes Any med S/E: None Mental Status Exam Appearance: Casual in street clothes Eye contact: Fair, intense gaze when irritated Behavior: Cooperative, restless, anxious, impulsive, distractible, and guarded. Overall labile. Speech: Varies between soft and difficult to understand, to loud, almost shouting at times. Mood: Anxious and restless, however able to be redirected Affect: Labile Thought process: Poverty of thought Thought Content: Possible A/V/COTA, and preoccupation with desire to discharge Cognition: A&O X3 Insight: Poor Judgment: Poor Interventions PRN's used: Nicotine Cookie. Therapeutic interventions: Introduced self and attempted to establish rapport, ensured contract for safety, maintained a safe and therapeutic environment, provided clear and simple instructions, attempted to orient to reality, monitored behaviors and need for intervention, provided redirection as needed, and maintained close observation per safety precautions. Restraints/seclusion/emergency medication: N/A Justification of Continued Inpatient Treatment: Pt. continues to requires a safe and supportive environment, medication adjustments, behavioral management, while awaiting placement by conservator.
[2019-12-27] MEDS: LORazepam 1 MG tablet PO PRN (18:50)
[2019-12-27 19:00] VITALS: BP 128/63
[2019-12-27] MEDS: diphenhydrAMINE 25mg capsule PO PRN (19:47)
[2019-12-27] MEDS: traZODone 50mg tablet PO SCH (19:47)
[2019-12-27] MEDS: haloperidol 5mg tablet PO PRN (19:48)
--- NOTE | 2019-12-28 03:21 | NUR ---
Nursing Progress Note: Legal hold: T-Con Client on involuntary status for GD Report received from nurse with use of SBAR: FRANCISCO J Robertson Why are they here: Pt admitted to [place] for Behavioral health on a 5150 for gravely disabled. Pt has been unable to care for himself. He is unable to verbalize a viable plan for food, clothing, and residential. Pt is responding to internal stimuli. Pt repeatedly comes to the [place] [facility] begging for food with significant weight loss.. Pt unable to manage finances and is disheveled and unkempt. Pt has history of schizophrenia and bipolar. Assessment What has happened this shift: Patient loud and upset at the beginning of shift; explaining, "I don't want to be here. I hate hospitals." Patient provided PRN Ativan. Patient continued to report not knowing how to deal with all of his emotions and remain calm at the same time. He continued state, "I mad and sad. I just don't want to be here." Patient briefly paced the lee but escalated again, hitting the window and threatening to throw small shell/night table. Patient provided PRN Benadryl and Haldol with HS medication. Patient provided HS snack in his room. Patient changed into sleep wear and brushed his teeth prior to laying down. Observed sleeping and does not appear to be having difficulty. S/I, H/I: Denies A/VH: Denies Sleep: Refer to sleep assessment ADL's: Requires direction from staff Group attendance: No groups this shift Were meds taken: Yes, without hesitation Any med S/E: None reported or observed Mental Status Exam Appearance: Neat, clean, well groomed and appropriately dressed in personal attire. Eye contact: Good Behavior: Impulsive, irritable, difficulty handling his emotions Speech: Impediment Mood: Labile Affect: Congruent to mood Thought process: Circumstantial Thought Content: Wants to discharge, difficulty dealing with his emotions Cognition: A&O X2 (not to place or reason here) Insight: Poor Judgment: Poor Interventions PRN's used: Ativan, Benadryl, Haldol Therapeutic interventions: Maintained a safe and therapeutic environment, ensured contract for safety, provided clear and simple instructions, attempted to orient to reality, monitored behaviors and need for intervention, provided redirection as needed and behavioral limitations, provided education as needed regarding the rules of the unit, and maintained LOS per safety precautions. Restraints/seclusion/emergency medication: N/A Justification of Continued Inpatient Treatment: Pt. continues to requires a safe and supportive environment while awaiting placement by conservator.
[2019-12-28] MEDS: mineral oil/petrolatum, white cream 113gm jar TP SCH ×2 (07:00→20:50)
[2019-12-28] MEDS: LORazepam 1 MG tablet PO SCH ×3 (07:16→20:00)
[2019-12-28] MEDS: lithium carbonate 150mg capsule PO SCH ×3 (07:16→20:51)
[2019-12-28] MEDS: QUEtiapine 25mg tablet PO SCH ×3 (07:17→20:50)
[2019-12-28] MEDS: divalproex sod 250mg ER (24-hour) tablet PO SCH ×3 (07:17→17:01)
[2019-12-28] MEDS: quetiapine 100mg tablet PO SCH ×3 (07:18→20:50)
[2019-12-28] MEDS: propranolol 10mg tablet PO SCH ×3 (07:18→20:51)
[2019-12-28 08:00] VITALS: BP 112/60
--- NOTE | 2019-12-28 16:37 | NUR ---
Nursing Progress Note: [facility] Legal hold: T-Con Client on involuntary status [facility] Sharmila shift RN Why are they here: Pt admitted to [place] for Behavioral health on a 5150 for gravely disabled. Pt has been unable to care for himself. He is unable to verbalize a viable plan for food, clothing, and snf. Pt is responding to internal stimuli. Pt repeatedly comes to the [facility] [facility] begging for food with significant weight loss. Pt unable to manage finances and is disheveled and unkempt. Pt has history of schizophrenia and bipolar. Assessment What has happened this shift: Client was in bed to begin this shift and had LOS present for safety. Client was a little sedated and opted to skip breakfast which was brought to his room for consumption. Client was amicable to medications but did not participate in assessment. Client woke and consumed a late breakfast followed by snacks. His behavior has been appropriate and he has had no verbal or physical outbursts. LOS remains in place and client has been amicable to his care as of this writing at 1045 hours. Client has consumed several snacks today but feels he is not getting enough food. Client consumed lunch in his room before returning to bed to rest. Currently (1405 hours) he is in bed resting with eyes closed. Respirations are even and unlabored and there is no signs of distress or problems. Client has been on the unit and visible but has required frequent redirection this afternoon for loud verbal outbursts. Client remains fixated on food and this service is doing all it can to meet his dietary needs. S/I, H/I: Denies A/VH: Denies Sleep: 7 hours last shift. ADL's: Requires direction from staff Group attendance: No Were meds taken: Yes Any med S/E: None reported or observed Mental Status Exam Appearance: Neat, clean, well groomed and appropriately dressed in personal attire. Eye contact: Good Behavior: Impulsive, irritable, difficulty handling his emotions Speech: Impediment Mood: Labile Affect: Congruent to mood Thought process: Circumstantial Thought Content: Wants to discharge, difficulty dealing with his emotions Cognition: A&O X2 (not to place or reason here) Insight: Poor Judgment: Poor Interventions PRN's used: none today Therapeutic interventions: Maintained a safe and therapeutic environment, ensured contract for safety, provided clear and simple instructions, attempted to orient to reality, monitored behaviors and need for intervention, provided redirection as needed and behavioral limitations, provided education as needed regarding the rules of the unit, and maintained LOS per safety precautions. Restraints/seclusion/emergency medication: N/A
[2019-12-28 20:00] VITALS: BP_SYST 132; BP_SYST 133; BP_DIAS 79
[2019-12-28] MEDS: traZODone 50mg tablet PO SCH ×2 (20:50→22:14)
[2019-12-28] MEDS: LORazepam 1 MG tablet PO PRN (20:51)
--- NOTE | 2019-12-29 04:25 | NUR ---
Nursing Progress Note: Legal hold: T-Con Client on involuntary status for GD Report received from nurse with use of SBAR: Marcelo RN Why are they here: Pt admitted to [place] for Behavioral health on a 5150 for gravely disabled. Pt has been unable to care for himself. He is unable to verbalize a viable plan for food, clothing, and jail. Pt is responding to internal stimuli. Pt repeatedly comes to the [facility] begging for food with significant weight loss.. Pt unable to manage finances and is disheveled and unkempt. Pt has history of schizophrenia and bipolar. Assessment What has happened this shift: Patient loud but pleasant at the beginning of shift, looking for attention and trying to make people smile while acting silly. Patient was asked by a peer to quiet down and that upset him and told his peer "get the fuck away" and began shouting that he wants to leave and hates hospitals. Patient began crying while comic writer talking to him and explained he was "trying to be good" and needed help. Pt accepted PRN Ativan with positive effect. He remained pleasant and cooperative with care; compliant with medication. Patient ate HS snack in his bedroom. He brushed his teeth and cleaned up bedroom prior to bed. He reported difficulty sleeping and repeat order for Trazodone provided. Patient observed sleeping and does not appear to be having difficulty. S/I, H/I: Denies A/VH: Denies Sleep: Refer to sleep assessment ADL's: Requires direction from staff Group attendance: No groups this shift Were meds taken: Yes, without hesitation Any med S/E: None reported or observed Mental Status Exam Appearance: Neat, clean, well groomed and appropriately dressed in personal attire. Eye contact: Good Behavior: Cooperative, impulsive, difficulty handling his emotions, socializing with peers and staff Speech: Impediment, loud Mood: Labile Affect: Animated Thought process: Circumstantial Thought Content: Wants to discharge, difficulty dealing with his emotions Cognition: A&O X2 (not to place or reason here) Insight: Poor Judgment: Poor Interventions PRN's used: Ativan and repeat Trazodone Therapeutic interventions: Maintained a safe and therapeutic environment, ensured contract for safety, provided clear and simple instructions, attempted to orient to reality, monitored behaviors and need for intervention, provided redirection as needed and behavioral limitations, provided education as needed regarding the rules of the unit, and maintained LOS per safety precautions. Restraints/seclusion/emergency medication: N/A Justification of Continued Inpatient Treatment: Pt. continues to requires a safe and supportive environment while awaiting placement by conservator.
[2019-12-29] MEDS: divalproex sod 250mg ER (24-hour) tablet PO SCH ×3 (07:55→18:06)
[2019-12-29] MEDS: lithium carbonate 150mg capsule PO SCH ×3 (07:55→20:03)
[2019-12-29] MEDS: propranolol 10mg tablet PO SCH ×3 (07:55→20:02)
[2019-12-29] MEDS: LORazepam 1 MG tablet PO SCH ×3 (07:55→20:04)
[2019-12-29] MEDS: quetiapine 100mg tablet PO SCH ×3 (07:56→20:03)
[2019-12-29] MEDS: mineral oil/petrolatum, white cream 113gm jar TP SCH ×2 (07:56→20:02)
[2019-12-29] MEDS: QUEtiapine 25mg tablet PO SCH ×3 (07:56→20:03)
[2019-12-29] MEDS: diphenhydrAMINE 25mg capsule PO PRN (13:53)
[2019-12-29] MEDS: haloperidol 5mg tablet PO PRN (13:54)
[2019-12-29] MEDS: LORazepam 1 MG tablet PO PRN (13:54)
[2019-12-29] MEDS ORDERED: haloperidol lactate 5mg/ml inj ONE (16:28)
[2019-12-29] MEDS ORDERED: diphenhydrAMINE 50 mg/ml inj ONE (16:28)
--- NOTE | 2019-12-29 16:30 | NUR ---
Aggressive Behavior: Pt starting to make aggressive stance at another pt in the lee. Pt told to leave the pt alone and walk down to his room. Pt starts screaming and cursing and threatening. This nurse meets pt at his room and discuss the rules with the pt. Pt again punching the boyd and windows in his room. Pt then calms down and states in a calm voice "If you ever come into my room again and threaten me with needles again, we are going to war." Pt was not threatened. Offered pt medications to help calm him down and he refused. After walking back to the nurses station, pt again is heard punching the window in his room. Called and RUPA Fabian and administered pt 10mg Haldol, benadryl 50mg, 2mg Ativan IM. PT accepted this in his R deltoid without resistance.
[2019-12-29] MEDS: LORazepam 2 mg/ml vial IM PRN (16:44)
--- NOTE | 2019-12-29 16:48 | NUR ---
Nursing Progress Note [facility] Legal hold: T-Con Client on involuntary status for GD Report received from RN with use of SBAR Why are they here: Pt admitted to [place] for Behavioral health on a 5150 for gravely disabled. Pt has been unable to care for himself. He is unable to verbalize a viable plan for food, clothing, and long-term. Pt is responding to internal stimuli. Pt repeatedly comes to the [place] [facility] begging for food with significant weight loss.. Pt unable to manage finances and is disheveled and unkempt. Pt has history of schizophrenia and bipolar. Assessment What has happened this shift: Received Pt sleeping in bed w/o distress, with line of sight staff sitting right at door, at change of shift. Patient did not wake for vitals but awoke for breakfast and ate in his room. Pt took AM meds w/o issue. Irineo returned to bed and napped till mid morning. Pt was responsive to staff verbal interventions until mid afternoon when he became verbally aggressive and loud numerous times with other Pts and staff. Pt was given oral prn for anxiety (Haldol 5mg, Benadryl 50mg, Ativan 2mg). Pt walked halls with headphones and sang a little then began aggressive outbursts again and was asked to stay in his room if he couldnt control his agressive behavior. Pt yelled and postured toward staff and escalated. Pt received IM prns for anxiety. Pt calmer but remains angry. S/I, H/I: Denies A/VH: Denies Sleep: Pt napped in AM ADL's: Requires direction from staff Group attendance: No Were meds taken: Yes Any med S/E: None Mental Status Exam Appearance: Casual in street clothes Eye contact: Fair, intense gaze when irritated Behavior: Cooperative at times, agitated, impulsive, labile Speech: Varies between soft and aggressively shouting Mood: Anxious and restless, however able to be redirected Affect: Labile Thought process: Poverty of thought Thought Content: Possible A/V/COTA, and preoccupation with desire to discharge and cigarrettes Cognition: A&O X3 Insight: Poor Judgment: Poor Interventions PRN's used: Ativan, Haldol, benadryl Therapeutic interventions: Introduced self and attempted to establish rapport, ensured contract for safety, maintained a safe and therapeutic environment, provided clear and simple instructions, attempted to orient to reality, monitored behaviors and need for intervention, provided redirection as needed, and maintained close observation per safety precautions. Restraints/seclusion/emergency medication: N/A Justification of Continued Inpatient Treatment: Pt. continues to requires a safe and supportive environment, medication adjustments, behavioral management, while awaiting placement by conservator. Addendum: 12/29/19 at 1750 by Iker Davis RN Pt's vitals after IM PRN's for agitation @ 1740: P-88, R- 20, BP- 137/81, O2sat- 98%.
[2019-12-29] MEDS: NICOTINE POLACRILEX 2 MG LOZENGE BC PRN (18:06)
[2019-12-29 20:00] VITALS: BP 120/78
--- NOTE | 2019-12-30 02:58 | NUR ---
Nursing Progress Note Legal hold: T-Con Client on involuntary status for GD Report received from Marcelo Olivarez RN with use of SBAR Why are they here: Pt admitted to [place] for Behavioral health on a 5150 for gravely disabled. Pt has been unable to care for himself. He is unable to verbalize a viable plan for food, clothing, and longterm. Pt is responding to internal stimuli. Pt repeatedly comes to the [place] [facility] begging for food with significant weight loss.. Pt unable to manage finances and is disheveled and unkempt. Pt has history of schizophrenia and bipolar. Assessment What has happened this shift: Pt pacing with his LOS staff at the start of the shift. I spoke with patient to let him know I was going to be his nurse, he initially was in good spirits, but he then began to fixate on not wanting to be here which caused his mood to quickly change. I tried distraction by offering activities, but his answer was "No I don't want to be here!" I suggested he take a shower and again he gave me the same response and appeared to be becoming more irritable. I was walking with him in the hallway and he then entered his room and punched at his bathroom door. At this point I became more firm and discussed his issues with his anger and how these behaviors will make it more difficult to find placement for him. He began to calm down a little and then began pacing again with his LOS staff and then requested the headset to listen to music. There were no further incidents with his behavior. During medication administration when patient was calm we discussed controlling his anger, identifying early when he feels he is starting to get angry, to walk away and taking a "time out" to gain control of his emotions. Agreed that tomorrow he will try to have a "better day" S/I, H/I: did make passive statement about "not wanting to be on [place]" during his period of frustration this shift A/VH: Denies Sleep: Pt sleeps well throughout the night, no awakening ADL's: encouraged pt to changed dirty clothing and bedding, clean his room, he only removed dirty bedding Group attendance: No groups this shift Were meds taken: Yes Any med S/E: Denies and none observed Mental Status Exam Appearance: wearing green hospital scrub pants with mcmahan top, both had food stains on them Eye contact: fair, poor during period of anger Behavior: frustrated with being here, angry at times Speech: normal rate, raises voice when angry Mood: irritable, frustrated with being here, angry at times, however able to be redirected Affect: angry, blunted Thought process: poor reasoning ability, poor insight into why he is here and need for help Thought Content: fixated on wanting to leave Cognition: impaired Insight: Poor Judgment: Poor Interventions: 1:1, emotional support given, attempting to help patient identify early when he is starting to feel angry and work on walking away and taking a "time out", educated on reason for continued need to be here for his well being( pt states he likes being on the streets). PRN's used: None Restraints/seclusion/emergency medication: N/A Justification of Continued Inpatient Treatment: Pt. continues to requires a safe and supportive environment, medication adjustments, behavioral management, while awaiting placement by conservator.
[2019-12-30] MEDS: quetiapine 100mg tablet PO SCH ×3 (08:00→20:30)
[2019-12-30] MEDS: QUEtiapine 25mg tablet PO SCH ×3 (08:00→20:30)
[2019-12-30] MEDS: LORazepam 1 MG tablet PO SCH ×3 (09:21→20:31)
[2019-12-30] MEDS: lithium carbonate 150mg capsule PO SCH ×3 (09:22→20:31)
[2019-12-30] MEDS: divalproex sod 250mg ER (24-hour) tablet PO SCH ×3 (09:22→17:43)
[2019-12-30] MEDS: propranolol 10mg tablet PO SCH ×3 (09:23→20:31)
[2019-12-30] MEDS: mineral oil/petrolatum, white cream 113gm jar TP SCH ×2 (09:41→20:31)
--- NOTE | 2019-12-30 09:55 | NUR ---
1:1-Emotional Regulation Support Presenting Issues: Pt requested to speak w/SS this morning, he presented w/an upbeat mood and wanted to talk about when he can leave here. Interventions: SS utilized TX strategies to acknowledge & validate pt's frustration w/having to stay in the hospital. Pt able to verbalize his dislike of being told what he can & cannot do by staff. SS asked pt what staff can do to make his stay @ [facility] less distressing, pt states, "I want to be left alone and leave". SS reframed pt's response to "you would like to be able to not need staff support all the time". While pt was able to verbalize his wants, he was not able to hear info about his needs and perseverates on being "locked up"- unable to leave the hospital. As pt begins to exhibit signs of increased agitation, SS prompted him to walk to his room, pt was able to comply while being verbally agitated. Once in his room, pt was observed struggling to control his breaths, staff prompted pt to take slow breaths via utilization of a breath every 4 seconds. Pt complied and was able to quiet down. Plan: SS will continue to engage [facility] & [facility] & in assessment & dcp activities. Sheridan Obrien LCSW Addendum: 12/31/19 at 1040 by Sheridan DORADO Amended: Links added.
[2019-12-30] MEDS: diphenhydrAMINE 25mg capsule PO PRN (15:18)
[2019-12-30] MEDS: LORazepam 1 MG tablet PO PRN (15:18)
[2019-12-30] MEDS: haloperidol 5mg tablet PO PRN (15:19)
[2019-12-30] MEDS: NICOTINE POLACRILEX 2 MG LOZENGE BC PRN (15:30)
--- NOTE | 2019-12-30 17:02 | NUR ---
Nursing Progress Note [facility] Legal hold: T-Con Client on involuntary status for GD Report received from RN with use of SBAR Why are they here: Pt admitted to [place] for [facility] health on a 5150 for gravely disabled. Pt has been unable to care for himself. He is unable to verbalize a viable plan for food, clothing, and snf. Pt is responding to internal stimuli. Pt repeatedly comes to the [place] [facility] begging for food with significant weight loss.. Pt unable to manage finances and is disheveled and unkempt. Pt has history of schizophrenia and bipolar. Assessment What has happened this shift: Patient sleeping at change of shift and up around 0930. Patient received his morning meds late. Patient was calm and cooperative. Patient denies suicidal/homicidal ideation. Patient denies audio/visual hallucinations. Patient ate his breakfast, took his meds and went back to bed. Patient was up for lunch and napped in the afternoon. Patient started yelling at around 1500 and calmed down fairly quickly. RN gave patient an oral B52. A couple of times today patient was at the Nurses area door and asked why he couldn't leave. RN reminded patient that his court hearing is January 11. Patient started crying and then a few cuss word and yelling. Patient asked to go to his room and he did. Patient has been much better today than the last couple of days. Patient is still labile. S/I, H/I: Denies A/VH: Denies Sleep: Pt napped in morning and afternoon ADL's: Requires direction from staff Group attendance: No Were meds taken: Yes Any med S/E: None Mental Status Exam Appearance: Dirty shirt/street clothes Eye contact: Fair, intense gaze when irritated Behavior: Cooperative at times, agitated, impulsive, labile Speech: Varies between soft and aggressively shouting Mood: Anxious and restless, however able to be redirected at times Affect: Labile Thought process: Poverty of thought Thought Content: Possible A/V/COTA, and perseverates about needing to leave Cognition: A&O X3 Insight: Poor Judgment: Poor Interventions PRN's used: Ativan, Haldol, Benadryl, PO Therapeutic interventions: Introduced self and attempted to establish rapport, ensured contract for safety, maintained a safe and therapeutic environment, provided clear and simple instructions, attempted to orient to reality, monitored behaviors and need for intervention, provided redirection as needed, and maintained close observation per safety precautions. Restraints/seclusion/emergency medication: N/A Justification of Continued Inpatient Treatment: Pt. continues to requires a safe and supportive environment, medication adjustments, behavioral management, while awaiting placement by conservator.
[2019-12-30] MEDS: traZODone 50mg tablet PO SCH (20:31)
[2019-12-30 20:46] VITALS: BP 132/78
--- NOTE | 2019-12-30 23:16 | NUR ---
Nursing Progress Note [facility] Legal hold: T-Con Client on involuntary status for GD Report received from RN with use of SBAR Why are they here: Pt admitted to [place] for [facility] health on a 5150 for gravely disabled. Pt has been unable to care for himself. He is unable to verbalize a viable plan for food, clothing, and retirement. Pt is responding to internal stimuli. Pt repeatedly comes to the [facility] begging for food with significant weight loss.. Pt unable to manage finances and is disheveled and unkempt. Pt has history of schizophrenia and bipolar. Assessment What has happened this shift: Pt was sitting in his room at change of shift. Pt is on LOS and sitter is present. Pt is pleasant, states he had a good day and he's happy. Pt is cooperative but easily agitated at times. Pt became upset when he was redirected away from touching another patient and began yelling and stormed to his room and slammed the door shut. Pt was able to calm himself afterwards by putting on the headphones and laying down. Pt was med compliant and then came out of his room to have a snack before bedtime. Assisted patient with washing his feet and applied eucerin to both feet. Encouraged patient to keep his non skid socks on while he is walking around the unit. Pts feet continue to be dry and cracked. Pts feet were heavily soiled and caked with dirt prior to being assisted with washing them. Pt states he doesnt like to wear his socks. Encouraged patient to wearing his socks to keep his feet clean and help with dryness. S/I, H/I: Denies A/VH: Denies Sleep: Pt sleeps well ADL's: Requires direction from staff Group attendance: No Were meds taken: Yes Any med S/E: None Mental Status Exam Appearance: unkempt wearing personal clothing Eye contact: Fair, intense gaze when irritated Behavior: Cooperative at times, agitated, impulsive, labile Speech: Varies between soft and aggressively shouting Mood: Anxious and restless, however able to be redirected at times Affect: Labile Thought process: Poverty of thought Thought Content: Possible A/V/COTA, and perseverates about needing to leave Cognition: A&O X3 Insight: Poor Judgment: Poor Interventions PRN's used: none Therapeutic interventions: Introduced self and attempted to establish rapport, ensured contract for safety, maintained a safe and therapeutic environment, provided clear and simple instructions, attempted to orient to reality, monitored behaviors and need for intervention, provided redirection as needed, and maintained close observation per safety precautions. Restraints/seclusion/emergency medication: N/A Justification of Continued Inpatient Treatment: Pt. continues to requires a safe and supportive environment, medication adjustments, behavioral management, while awaiting placement by conservator.
[2019-12-31] MEDS: QUEtiapine 25mg tablet PO SCH ×3 (08:04→20:40)
[2019-12-31] MEDS: quetiapine 100mg tablet PO SCH ×3 (08:04→20:40)
[2019-12-31] MEDS: LORazepam 1 MG tablet PO SCH ×3 (08:04→20:40)
[2019-12-31] MEDS: divalproex sod 250mg ER (24-hour) tablet PO SCH ×3 (08:05→17:06)
[2019-12-31] MEDS: lithium carbonate 150mg capsule PO SCH ×3 (08:05→20:41)
[2019-12-31] MEDS: propranolol 10mg tablet PO SCH ×3 (08:05→20:41)
[2019-12-31] MEDS: mineral oil/petrolatum, white cream 113gm jar TP SCH ×2 (08:09→19:51)
[2019-12-31] MEDS: LORazepam 1 MG tablet PO PRN (17:06)
--- NOTE | 2019-12-31 17:31 | NUR ---
Nursing Progress Note: Legal hold: T-Con Client on involuntary status for GD Report received from nurse with use of SBAR: Hannah RN Why are they here: Pt admitted to [place] for [facility] health on a 5150 for gravely disabled. Pt has been unable to care for himself. He is unable to verbalize a viable plan for food, clothing, and senior living. Pt is responding to internal stimuli. Pt repeatedly comes to the [place] [facility] begging for food with significant weight loss.. Pt unable to manage finances and is disheveled and unkempt. Pt has history of schizophrenia and bipolar. Assessment What has happened this shift: Pt up and visible on the unit at the beginning of the shift. Pt remains on LOS. Pt continues to have multiple blowups throughout the shift. He would go to his room, yelling obscenities and slamming door and punching boyd on the way and then he would breakdown and cries. Pt focused on, I want my freedom! I want to do my own thing! Pt was happy a lot during the shift and was observed dancing and laughing much during the shift as well. S/I, H/I: Denies A/VH: Denies, Sleep: naps on and off today ADL's: Requires direction from staff Group attendance: no Were meds taken: yes Any med S/E: None Mental Status Exam Appearance: Somewhat disheveled, however appropriately dressed Eye contact: Fair, intense at times Behavior: Cooperative, restless, anxious, impulsive, distractible, and guarded Speech: Varies between soft and difficult to understand, to loud, almost shouting at times. Mood: Anxious and restless, however able to be redirected Affect: Labile Thought process: Poverty of thought Thought Content: Possible A/V/COTA, and preoccupation with desire to discharge Cognition: A&O X2 (not to place or reason here) Insight: Poor Judgment: Poor Interventions PRN's used: ativan Therapeutic interventions: Introduced self and attempted to establish rapport, ensured contract for safety, maintained a safe and therapeutic environment, provided clear and simple instructions, attempted to orient to reality, monitored behaviors and need for intervention, provided redirection as needed, and maintained close observation per safety precautions. Restraints/seclusion/emergency medication: N/A Justification of Continued Inpatient Treatment: Per RUPA Ruiz, pt. continues to requires a safe and supportive environment while awaiting placement by conservator.
[2019-12-31] MEDS: acetaminophen 325mg tablet PO PRN (19:50)
[2019-12-31] MEDS: traZODone 50mg tablet PO SCH (19:50)
[2019-12-31 20:02] VITALS: BP 124/72
--- NOTE | 2019-12-31 23:34 | NUR ---
Nursing Progress Note: Legal hold: T-Con Client on involuntary status for GD Report received from nurse with use of SBAR: Kasie RN Why are they here: Pt admitted to [place] for Behavioral health on a 5150 for gravely disabled. Pt has been unable to care for himself. He is unable to verbalize a viable plan for food, clothing, and senior living. Pt is responding to internal stimuli. Pt repeatedly comes to the [place] [facility] begging for food with significant weight loss. Pt unable to manage finances and is disheveled and unkempt. Pt has history of schizophrenia and bipolar. Assessment What has happened this shift: Pt seen in room, sitting in bed during shift change. Pt remains on LOS and with sitter present at bedside. Pt states that he has a headache and would like something for it. PRN Acetaminophen given. Pt cooperative and pleasant during assessment. Pt compliant with all medications and Eucerin cream applied to both feet as ordered. Pt states that he "just wants to leave," but he is aware that he can't leave yet. Pt also seen listening to music in bed during hourly round. Pt ambulated hallway multiple times with sitter present. S/I, H/I: Denies A/VH: Denies Sleep: Pt is resting well in room ADL's: Requires direction from staff Group attendance: No Were meds taken: Yes Any med S/E: None Mental Status Exam Appearance: Somewhat disheveled, however appropriately dressed Eye contact: Fair, intense at times Behavior: Cooperative at times, restless, anxious, distractible, and guarded Speech: Varies between soft and difficult to understand at times Mood: Anxious and restless, however able to be redirected Affect: Labile Thought process: Poverty of thought Thought Content: Possible A/V/COTA, and preoccupation with desire to discharge Cognition: A&O X3 Insight: Poor Judgment: Poor Interventions PRN's used: Tylenol Therapeutic interventions: Introduced self and established rapport, ensured contract for safety, maintained a safe and therapeutic environment, provided clear and simple instructions, attempted to orient to reality, monitored behaviors and need for intervention, provided redirection as needed, and maintained close observation per safety precautions. Restraints/seclusion/emergency medication: N/A Justification of Continued Inpatient Treatment: Pt continues to require a safe and supportive environment, behavioral management while awaiting placement by conservator. Addendum: 01/01/20 at 0457 by Lula Feliciano RN Pt with no episodes of agitation and aggression during shift.
[2020-01-01] MEDS: quetiapine 100mg tablet PO SCH ×3 (08:33→20:17)
[2020-01-01] MEDS: propranolol 10mg tablet PO SCH ×3 (08:34→20:16)
[2020-01-01] MEDS: LORazepam 1 MG tablet PO SCH ×3 (08:34→20:17)
[2020-01-01] MEDS: QUEtiapine 25mg tablet PO SCH ×3 (08:34→20:17)
[2020-01-01] MEDS: divalproex sod 250mg ER (24-hour) tablet PO SCH ×3 (08:34→18:21)
[2020-01-01] MEDS: lithium carbonate 150mg capsule PO SCH ×3 (08:34→20:16)
[2020-01-01] MEDS: mineral oil/petrolatum, white cream 113gm jar TP SCH ×2 (08:40→20:18)
--- NOTE | 2020-01-01 14:16 | NUR ---
Nursing Progress Note: Legal hold: T-Con Client on involuntary status for GD Report received from nurse with use of SBAR: Hannah RN Why are they here: Pt admitted to [place] for Behavioral health on a 5150 for gravely disabled. Pt has been unable to care for himself. He is unable to verbalize a viable plan for food, clothing, and senior care. Pt is responding to internal stimuli. Pt repeatedly comes to the [place] [facility] begging for food with significant weight loss.. Pt unable to manage finances and is disheveled and unkempt. Pt has history of schizophrenia and bipolar. Assessment What has happened this shift: Pt up and visible on the unit at the beginning of the shift. Pt remains on LOS. Pt had less outbursts today; though, a few times he would go to his room, yelling obscenities and slamming his door and then he would breakdown and cry. Pt kept stating, when am I leaving here? Pt was happy a lot during the shift and was observed dancing and laughing much during the shift as well. S/I, H/I: Denies A/VH: Denies, Sleep: naps on and off today ADL's: Requires direction from staff Group attendance: no Were meds taken: yes Any med S/E: None Mental Status Exam Appearance: Somewhat disheveled, however appropriately dressed Eye contact: Fair, intense at times Behavior: Cooperative, restless, anxious, impulsive, distractible, and guarded Speech: Varies between soft and difficult to understand, to loud, almost shouting at times. Mood: Anxious and restless, however able to be redirected Affect: Labile Thought process: Poverty of thought Thought Content: Possible A/V/COTA, and preoccupation with desire to discharge Cognition: A&O X2 (not to place or reason here) Insight: Poor Judgment: Poor Interventions PRN's used: ativan Therapeutic interventions: Introduced self and attempted to establish rapport, ensured contract for safety, maintained a safe and therapeutic environment, provided clear and simple instructions, attempted to orient to reality, monitored behaviors and need for intervention, provided redirection as needed, and maintained close observation per safety precautions. Restraints/seclusion/emergency medication: N/A Justification of Continued Inpatient Treatment: Per RUPA Ruiz, pt. continues to requires a safe and supportive environment while awaiting placement by conservator.
[2020-01-01] MEDS: LORazepam 1 MG tablet PO PRN (16:42)
[2020-01-01] MEDS: NICOTINE POLACRILEX 2 MG LOZENGE BC PRN (16:42)
[2020-01-01 20:00] VITALS: BP 161/73
[2020-01-01] MEDS: traZODone 50mg tablet PO SCH (20:15)
--- NOTE | 2020-01-02 03:51 | NUR ---
Nursing Progress Note: Legal hold: T-Con Client on involuntary status for GD Report received from FRANCISCO J Ferro with use of SBAR Why are they here: Pt admitted to [place] for Behavioral health on a 5150 for gravely disabled. Pt has been unable to care for himself. He is unable to verbalize a viable plan for food, clothing, and prison. Pt is responding to internal stimuli. Pt repeatedly comes to the [place] [facility] begging for food with significant weight loss. Pt unable to manage finances and is disheveled and unkempt. Pt has history of schizophrenia and bipolar. Assessment What has happened this shift: Pt remains on LOS; pacing and listening to headphones at change of shift, intermittently saying hi to staff and peers. Pt would impulsively attempt to enter peoples rooms but responded well to redirection. Pt said he had a good day but is tired and requested medications early; accepted explanation of why this RN could not give immediately. Pt denies signs and symptoms, stating No, no Im really good just tired. Pt compliant with all medications, including Eucerin cream to his feet, but would not wear socks. He also wanted more medications shortly after HS medication pass but this RN suggested walking with the headphones to give the medications a chance to kick in and pt agreed then eventually retired to his room to sleep. S/I, H/I: Denies A/VH: Denies Sleep: Sleeping well, see sleep assessment ADL's: Requires direction from staff Group attendance: N/A Were meds taken: Yes Any med S/E: None Mental Status Exam Appearance: Unkempt, wearing personal clothing Eye contact: Fair Behavior: Cooperative at times, Impulsive, Pacing Speech: Soft Mood: Im good Affect: Blunted Thought process: Poverty of thought Thought Content: Possible A/V/COTA Cognition: A&O X3 Insight: Poor Judgment: Poor Interventions PRN's used: none Therapeutic interventions: Introduced self and attempted to establish rapport, ensured contract for safety, maintained a safe and therapeutic environment, provided clear and simple instructions, attempted to orient to reality, monitored behaviors and need for intervention, provided redirection as needed, and maintained close observation per safety precautions. Restraints/seclusion/emergency medication: N/A Justification of Continued Inpatient Treatment: Pt. continues to require a safe and supportive environment, medication adjustments, behavioral management, while awaiting placement by conservator.
[2020-01-02] MEDS: LORazepam 1 MG tablet PO SCH ×3 (07:30→20:17)
[2020-01-02] MEDS: lithium carbonate 150mg capsule PO SCH ×3 (07:30→20:17)
[2020-01-02] MEDS: QUEtiapine 25mg tablet PO SCH ×3 (07:30→20:18)
[2020-01-02] MEDS: divalproex sod 250mg ER (24-hour) tablet PO SCH ×3 (07:31→17:08)
[2020-01-02] MEDS: quetiapine 100mg tablet PO SCH ×3 (07:31→20:18)
[2020-01-02] MEDS: propranolol 10mg tablet PO SCH ×3 (07:31→20:19)
[2020-01-02 08:00] VITALS: BP 131/86
[2020-01-02] MEDS: mineral oil/petrolatum, white cream 113gm jar TP SCH ×2 (08:00→20:19)
[2020-01-02] MEDS: acetaminophen 325mg tablet PO PRN ×2 (11:51→21:13)
[2020-01-02] MEDS: NICOTINE POLACRILEX 2 MG LOZENGE BC PRN (12:52)
--- NOTE | 2020-01-02 15:53 | NUR ---
Nursing Progress Note: [facility] Legal hold: T-Con Client on involuntary status for GD Report received from FRANCISCO J Ferro with use of SBAR Why are they here: Pt admitted to [place] for Behavioral health on a 5150 for gravely disabled. Pt has been unable to care for himself. He is unable to verbalize a viable plan for food, clothing, and usp. Pt is responding to internal stimuli. Pt repeatedly comes to the [place] [facility] begging for food with significant weight loss. Pt unable to manage finances and is disheveled and unkempt. Pt has history of schizophrenia and bipolar. Assessment What has happened this shift: Client was in bed to begin the shift. Client woke for medications, assessment and breakfast and then returned to bed to rest until 1000 hours. He was soon visible on unit and with LOS present. He is social with staff as well as peers today. Client consumed his noon meal in his room and then was visible on the unit, dancing and singing to his headphones. Client made a threat against a peer this afternoon but he was redirected before a physical encounter occurred. Client stated, I just want to fucking but soon calmed after refusing PRN medications. He has been on LOS this shift and that will continue due to client behaviors. Client has problems with boundaries but will redirect if the behavior is called to his attention. S/I, H/I: Denies A/VH: Denies Sleep: 8.25 hours reported last shift. ADL's: Requires direction from staff Group attendance: N/A Were meds taken: Yes Any med S/E: None Mental Status Exam Appearance: Unkempt, wearing personal clothing Eye contact: Fair Behavior: Cooperative at times, Impulsive, Pacing Speech: Soft Mood: I hate this place Affect: Blunted Thought process: Poverty of thought Thought Content: Possible A/V/COTA Cognition: A&O X3 Insight: Poor Judgment: Poor Interventions PRN's used: none Therapeutic interventions: Introduced self and attempted to establish rapport, ensured contract for safety, maintained a safe and therapeutic environment, provided clear and simple instructions, attempted to orient to reality, monitored behaviors and need for intervention, provided redirection as needed, and maintained close observation per safety precautions. Restraints/seclusion/emergency medication: N/A Justification of Continued Inpatient Treatment: Pt. continues to require a safe and supportive environment, medication adjustments, behavioral management, while awaiting placement by conservator.
--- NOTE | 2020-01-02 17:25 | NUR ---
Nursing note: Client asked to speak with this verse writer regarding placement at 1700 hours today. Client was seeking information regarding conservatorship and his questions were answered to his satisfaction. Client stated that he would accept Conservatorship as he agrees that he needs the support once he discharges from this unit. Client realizes the need for medication and ADL support and would like to discuss this further with a Braille Duplicating Machine Operator from this unit.
[2020-01-02 20:00] VITALS: BP 137/85
[2020-01-02] MEDS: traZODone 50mg tablet PO SCH (20:19)
[2020-01-02] MEDS: tizanidine 4mg tablet PO PRN (21:13)
[2020-01-02] MEDS: diphenhydrAMINE 25mg capsule PO PRN (21:42)
[2020-01-03] MEDS: temazepam 15mg capsule PO ONE ×2 (01:03→01:46)
[2020-01-03] MEDS: haloperidol 5mg tablet PO PRN (02:11)
[2020-01-03] MEDS: benztropine 1mg tablet PO PRN (02:11)
--- NOTE | 2020-01-03 04:47 | NUR ---
Nursing Progress Note: [facility] Legal hold: T-Con Client on involuntary status for GD Report received from FRANCISCO J Ferro with use of SBAR Why are they here: Pt admitted to [place] for Behavioral health on a 5150 for gravely disabled. Pt has been unable to care for himself. He is unable to verbalize a viable plan for food, clothing, and senior living. Pt is responding to internal stimuli. Pt repeatedly comes to the [place] [facility] begging for food with significant weight loss. Pt unable to manage finances and is disheveled and unkempt. Pt has history of schizophrenia and bipolar. Assessment What has happened this shift: Pt remains on LOS and paced the halls singing and rapping most of shift, in a happy mood. After medication pass, pt became increasingly agitated, insisting he cant fall asleep and he just needs injections. Situation diffused through distraction and walking with pt, he attempted to sleep but exited room and exhibited same behavior and complaints but was yelling and throwing arms. PRN benadryl 50mg given and pt returned to his room. Pt requested snack and he was given a sandwich. Hour after PRN, pt continued to exit room, request more food, and yell at this RN to get away. Pt was not redirecting to his room. Fellow RN attempted to converse with pt and pt stated he was having a harder night because he missed his parents. Charge nurse obtained an order of Restoril 15mg from MD Murray; one dose given and pt remains in room, rapping but in a calmer mood. Pt still awake one hour after Restoril, requesting an ice pack for ankle. Given ice pack and pt returned to rest in his bed. Pt up requesting shower, given shower with tech Mark standby and pt sitting to ensure safety. Pt returned to room, still agitated and now weepy; given Haldol and cogentin and snack. Pt thanked the RN but continues to pace and requires redirection to his room. Pt exited room again, yelling loudly and presenting as angry. De-escalation techniques of active listening, validating emotions, and distraction with hot kye employed to good effect. Pt sitting in room or pacing quietly but not sleeping. Pt fell asleep at 0415. S/I, H/I: Denies A/VH: Denies Sleep: Difficulty falling asleep, see sleep assessment ADL's: Requires direction from staff Group attendance: N/A Were meds taken: Yes Any med S/E: None Mental Status Exam Appearance: Unkempt, wearing personal clothing Eye contact: Fair Behavior: Cooperative at times, Impulsive, Pacing, Agitated, yelling Speech: Soft Mood: Labile, pt presents as agitated and angry towards bedtime but was happy earlier in the shift Affect: Blunted Thought process: Poverty of thought Thought Content: Possible A/V/COTA, upset about missing his parents Cognition: A&O X3 Insight: Poor Judgment: Poor Interventions PRN's used: Benadryl 50mg, Restoril 30mg, Haldol 5mg, Cogentin 0.5mg Therapeutic interventions: Introduced self and attempted to establish rapport, ensured contract for safety, maintained a safe and therapeutic environment, provided clear and simple instructions, attempted to orient to reality, monitored behaviors and need for intervention, provided redirection as needed, and maintained close observation per safety precautions. Restraints/seclusion/emergency medication: N/A Justification of Continued Inpatient Treatment: Pt. continues to require a safe and supportive environment, medication adjustments, behavioral management, while awaiting placement by conservator.
[2020-01-03 08:00] VITALS: BP 126/91
[2020-01-03] MEDS: mineral oil/petrolatum, white cream 113gm jar TP SCH ×2 (08:00→20:24)
[2020-01-03] MEDS: quetiapine 100mg tablet PO SCH ×3 (09:04→20:01)
[2020-01-03] MEDS: propranolol 10mg tablet PO SCH ×3 (09:04→20:04)
[2020-01-03] MEDS: divalproex sod 250mg ER (24-hour) tablet PO SCH ×3 (09:05→17:35)
[2020-01-03] MEDS: QUEtiapine 25mg tablet PO SCH ×3 (09:05→20:01)
[2020-01-03] MEDS: lithium carbonate 150mg capsule PO SCH ×3 (09:06→20:03)
[2020-01-03] MEDS: LORazepam 1 MG tablet PO SCH ×3 (09:06→20:02)
--- NOTE | 2020-01-03 09:07 | NUR ---
PER Noc shift Report pt was agitated through the noc and did not sleep; "0" hrs documented per noc shift. Pt was given Restoril in the early am before shift change. Pt sleeping at beginning of shift. RN allowed pt to sleep when breakfast came and will wake pt by 0900. Pt awake just before 0900, ate breakfast, vitals and done and meds given per RN. Pt calm.
--- NOTE | 2020-01-03 09:46 | NUR ---
F/u (01/02): Pt PO 75-100% avg meals w/ double proteins TIDWM. LBM 01/01. No nutrition concerns at this time. Will continue to monitor. Recommendations: 1) Continue regular diet 2) Double eggs q breakfast, double meat BIDLD per diet order 3) Bowel care PRN 4) Scaled weights per rx Addendum: 01/03/20 at [address] Amended: Links added.
[2020-01-03] MEDS: LORazepam 1 MG tablet PO PRN (15:43)
--- NOTE | 2020-01-03 15:49 | NUR ---
Pt slept through the day, getting up for meals and then back to sleep until after 1500. RN discussed with rn charge and held 1300 ativan since he was so sleepy. In the afternoon he became agitated and had an outburst so ativan was given.
--- NOTE | 2020-01-03 17:33 | NUR ---
Nursing Progress Note: Legal hold: T-Con Client on involuntary status for GD Report received from FRANCISCO J Rivero with use of SBAR Why are they here: Pt admitted to [place] for [facility] health on a 5150 for gravely disabled. Pt has been unable to care for himself. He is unable to verbalize a viable plan for food, clothing, and mcc. Pt is responding to internal stimuli. Pt repeatedly comes to the [place] [facility] begging for food with significant weight loss. Pt unable to manage finances and is disheveled and unkempt. Pt has history of schizophrenia and bipolar. Assessment What has happened this shift: Pt sleeping at change of shift. When he woke up, he ate breakfast and was compliant with medications. He stated he is tired and wanted to go back to bed. Pt went back to bed. He slept through lunch and RN woke him just after. He ate lunch and took his meds and stated he will walk around. He went back to sleep instead. He got up in the afternoon and had one anger outburst but was de- escalated with food and therapeutic listening. Pt walked halls rapping and listening to headphones. He apologized to a PCT after he sneezed on her. S/I, H/I: Denies A/VH: Denies Sleep: 0 h per sleep assessment. Slept during the day ADL's: Requires direction from staff Group attendance: No group Were meds taken: Yes Any med S/E: Was sleepy for the morning and early afternoon, then became alert as per his normal Mental Status Exam Appearance: Disheveled, wearing personal clothing Eye contact: Fair Behavior: Labile Speech: Mumbles but loud Mood: Congruent to behavior Affect: Blunted Thought process: Circumstantial Thought Content: Food Cognition: Alert Insight: Poor Judgment: Poor Interventions PRN's used: None Therapeutic interventions: Introduced self and attempted to establish rapport, ensured contract for safety, maintained a safe and therapeutic environment, provided clear and simple instructions, attempted to orient to reality, monitored behaviors and need for intervention, provided redirection as needed, and maintained close observation per safety precautions. Restraints/seclusion/emergency medication: N/A Justification of Continued Inpatient Treatment: Pt. continues to require a safe and supportive environment, medication adjustments, behavioral management, while awaiting placement by conservator.
[2020-01-03] MEDS: acetaminophen 325mg tablet PO PRN (19:23)
[2020-01-03 20:00] VITALS: BP 124/81
[2020-01-03] MEDS: traZODone 50mg tablet PO SCH ×2 (20:03→21:00)
[2020-01-03] MEDS: tizanidine 4mg tablet PO PRN (20:20)
[2020-01-03] MEDS ORDERED: temazepam 15mg capsule PO ONE (21:00)
--- NOTE | 2020-01-04 05:07 | NUR ---
Nursing Progress Note: [facility] Legal hold: T-Con Client on involuntary status for GD Report received from FRANCISCO J Ferro with use of SBAR Why are they here: Pt admitted to [facility] for [facility]al health on a 5150 for gravely disabled. Pt has been unable to care for himself. He is unable to verbalize a viable plan for food, clothing, and mcc. Pt is responding to internal stimuli. Pt repeatedly comes to the [facility] begging for food with significant weight loss. Pt unable to manage finances and is disheveled and unkempt. Pt has history of schizophrenia and bipolar. Assessment What has happened this shift: Pt pacing the halls, interacting with peers and staff in a mostly friendly manner. He became agitated but was redirect able. Denies most symptoms but states pain in back and ankle. PRN and ice pack given to pt. Pt had a minor nose bleed from left nare of shirt duration. Used gauze, bleeding stopped in under 5 minutes. Pt focused on snacks and inability to get comfortable. May repeat dose of trazodone given and warm blankets; pt eventually fell asleep. He is much more agreeable and redirectable this evening. Went to sleep a couple hours after medication administration and remained asleep, except to use the restroom a few times. S/I, H/I: Denies A/VH: Denies Sleep: Pt fell asleep easier this evening, See sleep assessment ADL's: Requires direction from staff Group attendance: N/A Were meds taken: Yes Any med S/E: None Mental Status Exam Appearance: Unkempt, wearing personal clothing Eye contact: Fair Behavior: Cooperative at times, Impulsive, Pacing, Agitated but redirectable Speech: Soft Mood: Labile Affect: Blunted Thought process: Poverty of thought Thought Content: Possible A/V/COTA, ankle and back pain, wanting snacks Cognition: A&O X3 Insight: Poor Judgment: Poor Interventions PRN's used: Trazodone 100mg (may repeat dose), Zanaflex 4mg Therapeutic interventions: Introduced self and attempted to establish rapport, ensured contract for safety, maintained a safe and therapeutic environment, provided clear and simple instructions, attempted to orient to reality, monitored behaviors and need for intervention, provided redirection as needed, and maintained close observation per safety precautions. Restraints/seclusion/emergency medication: N/A Justification of Continued Inpatient Treatment: Pt. continues to require a safe and supportive environment, medication adjustments, behavioral management, while awaiting placement by conservator.
[2020-01-04] MEDS: propranolol 10mg tablet PO SCH ×3 (07:17→20:06)
[2020-01-04] MEDS: LORazepam 1 MG tablet PO SCH ×3 (07:18→20:07)
[2020-01-04] MEDS: lithium carbonate 150mg capsule PO SCH ×3 (07:18→20:06)
[2020-01-04] MEDS: quetiapine 100mg tablet PO SCH ×3 (07:18→20:07)
[2020-01-04] MEDS: divalproex sod 250mg ER (24-hour) tablet PO SCH ×3 (07:18→17:05)
[2020-01-04] MEDS: QUEtiapine 25mg tablet PO SCH ×3 (07:18→20:10)
[2020-01-04] MEDS: mineral oil/petrolatum, white cream 113gm jar TP SCH ×2 (07:24→20:00)
[2020-01-04 08:00] VITALS: BP 105/54
[2020-01-04] MEDS: NICOTINE POLACRILEX 2 MG LOZENGE BC PRN (12:31)
--- NOTE | 2020-01-04 16:46 | NUR ---
Nursing Progress Note: [facility] Legal hold: T-Con Client on involuntary status for GD Report received from FRANCISCO J Ferro with use of SBAR Why are they here: Pt admitted to [facility] for [facility] health on a 5150 for gravely disabled. Pt has been unable to care for himself. He is unable to verbalize a viable plan for food, clothing, and alf. Pt is responding to internal stimuli. Pt repeatedly comes to the [place] begging for food with significant weight loss. Pt unable to manage finances and is disheveled and unkempt. Pt has history of schizophrenia and bipolar. Assessment What has happened this shift: Client wwass in bed resting to begin this shift. He woke for medications and assessment and was compliant with both. Client consumed breakfast in his room with LOS present. He went back to bed after breakfast and was visible again at 1000 hours and he was requesting food. Healthy snack permitted by this marketing copywriter. Client sked to assist cleaning group room at 1130 and he was given broom and allowed to clean. Client has been visible in halls since lunch and he was observed singing and dancing with headphones on. LOS present for safety. Client had an outburst this afternoon but was able to redirect after placing another hole on wall of his room. S/I, H/I: Denies A/VH: Denies Sleep: ADL's: Requires direction from staff Group attendance: No group participation today. Were meds taken: Yes Any med S/E: None Mental Status Exam Appearance: Unkempt, wearing personal clothing Eye contact: Fair Behavior: Cooperative at times, Impulsive, Pacing, Agitated but redirectable Speech: Soft Mood: Labile Affect: Blunted Thought process: Poverty of thought Thought Content: Possible A/V/COTA, ankle and back pain, wanting snacks Cognition: A&O X3 Insight: Poor Judgment: Poor Interventions PRN's used: nicotine Therapeutic interventions: Introduced self and attempted to establish rapport, ensured contract for safety, maintained a safe and therapeutic environment, provided clear and simple instructions, attempted to orient to reality, monitored behaviors and need for intervention, provided redirection as needed, and maintained close observation per safety precautions. Restraints/seclusion/emergency medication: N/A Justification of Continued Inpatient Treatment: Pt. continues to require a safe and supportive environment, medication adjustments, behavioral management, while awaiting placement by conservator.
[2020-01-04 20:23] VITALS: BP 129/77
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
[2020-01-05] MEDS: mineral oil/petrolatum, white cream 113gm jar TP SCH ×2 (08:00→20:00)
[2020-01-05] MEDS: quetiapine 100mg tablet PO SCH ×3 (08:56→20:02)
[2020-01-05] MEDS: QUEtiapine 25mg tablet PO SCH ×3 (08:57→20:01)
[2020-01-05] MEDS: divalproex sod 250mg ER (24-hour) tablet PO SCH ×3 (08:58→18:10)
[2020-01-05] MEDS: propranolol 10mg tablet PO SCH ×3 (08:58→20:01)
[2020-01-05] MEDS: lithium carbonate 150mg capsule PO SCH ×3 (08:58→20:01)
[2020-01-05] MEDS: LORazepam 1 MG tablet PO SCH ×3 (08:59→20:01)
--- NOTE | 2020-01-05 10:00 | NUR ---
Group Therapy: Process Group This Clinicians goals for this process group were as follows: (1) Ask scaling questions about Patients current anxiety, depression, and irritability symptoms as a check-in. (2) Share psychoeducation about the importance of being able to identify regular activities, support people, and thoughts (Anchors) that contribute to mental health well-being and stability. (3) Share psychoeducation about how the gradual removal of said activities, people and behaviors may lead to the erosion of mental well-being and stability. (4) Encourage patients to identify support anchors that they need to maintain in their lives that will promote their mental and emotional well-being. (5) Engage Patients in discussion of the topics shared within the group milieu. Patient presented as properly oriented to person, and place during the process group. Patient was dressed in a nondescript, personal t-shirt and swim shorts. Patient walked into process group on three different occasions, only remaining briefly during each appearance. Patient was accompanied by milieu staff who were monitoring his behavior. Patient did not provide answers to scaling questions about his anxiety, depression, and anger/irritability symptoms. He did not participate in the process group discussion on emotional grounding interventions that could be of assistance in achieving optimal/baseline mental health. Patient presented as largely nonobtrusive. On one occasion, he briefly sat where another Patient had been sitting. When this was brought to Patient's attention by the Patient who had his seat taken, Patient quietly got up and left the group milieu. Keegan Ochoa MA, KAROL Addendum: 01/06/20 at 0820 by Keegan Ochoa SS Amended: Links added.
[2020-01-05] MEDS: diphenhydrAMINE 25mg capsule PO PRN (10:10)
[2020-01-05] MEDS: acetaminophen 325mg tablet PO PRN ×2 (10:12→14:39)
--- NOTE | 2020-01-05 11:25 | NUR ---
1:1-CBT-Play therapy via storytelling Presenting Issues: Per MDT Treatment Team consultation, 1:1 psychotherapeutic interventions via play medium was added to pt's TP to address pt's lack of capacity to self regulate his emotions. Interventions: SS met w/pt in the recreation room and engaged pt in Session 1- Ups & Downs days. The goal of today's session was to introduce pt to the concept of ups & downs days via storytelling & art/craft activities. Pt was able to demonstrate understanding of the difference between an up day vs a down day, that one can have multiple ups & downs moments in a day. SS utilize face pictures of different emotional state and had pt select 2 to name and act out. Pt selected "mad" and "proud". Pt successfully articulate what "mad" means and identify his "mad" triggers (when someone gets in my 'space'). However, pt's description of "proud" was not accurate as pt reports that he's proud when no one bothers him or get in his space. SS utilized NV strategies and ask additional questions to encourage pt in discovering what it means to feel proud. Pt able to choose a "relaxed" picture and accurately define it as feeling calm and good because "I have only ups mood". After 15 minutes, pt began to fidget and struggled to stay on topic, SS offered option to end the session, pt agreed to this. Plan: SS will meet with pt again on . Sheridan Obrien LCSW Addendum: 01/06/20 at 1320 by Sheridan DORADO Amended: Links added.
[2020-01-05] MEDS: haloperidol 5mg tablet PO PRN (15:34)
[2020-01-05] MEDS: LORazepam 1 MG tablet PO PRN (15:34)
--- NOTE | 2020-01-05 15:54 | NUR ---
Purchased Irineo a pair of shoes at [facility] as his current shoes do not fit and has been complaining about his feet hurting. Total cost= $10.70. Meat Counter Clerk will get reimbursed from [employer]. KAROL Ortiz
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
[2020-01-05] MEDS: NICOTINE POLACRILEX 2 MG LOZENGE BC PRN (19:39)
[2020-01-05] MEDS: traZODone 50mg tablet PO SCH (20:02)
[2020-01-05 20:22] VITALS: BP 136/82
--- NOTE | 2020-01-05 22:51 | NUR ---
Nursing Progress Note: [facility] Legal hold: T-Con Client on involuntary status for GD Report received from FRANCISCO J Ferro with use of SBAR Why are they here: Pt admitted to [facility] for Behavioral health on a 5150 for gravely disabled. Pt has been unable to care for himself. He is unable to verbalize a viable plan for food, clothing, and penitentiary. Pt is responding to internal stimuli. Pt repeatedly comes to the [facility] begging for food with significant weight loss. Pt unable to manage finances and is disheveled and unkempt. Pt has history of schizophrenia and bipolar. Assessment What has happened this shift: Pt was pacing the halls, listening to music and laughing with staff and peers. Pt had a couple behavior outbursts during the evening, but was able to calm himself down fairly quickly. Pt continues to be demanding of snacks and will have outbursts when told no. Pt denied having any complaints except wanting to get ahold of some friends and family members, which he is frustrated about because he cant remember their phone numbers. Pt asked if social services designee can contact some family members for him; pt wrote down names to give to social services designee and felt better about it afterwards. Mansi Ham-godmother Jacek Hamm-godfather Ha and Ariane snowden-cousins Alfredo Mccauley-friend Elda mccann-aunt Anamika isi-aunt S/I, H/I: Denies A/VH: Denies Sleep: See sleep assessment ADL's: Requires direction from staff Group attendance: N/A Were meds taken: Yes Any med S/E: None Mental Status Exam Appearance: Unkempt, wearing personal clothing, stains on shirt Eye contact: Fair Behavior: Cooperative at times, Impulsive, Pacing, Agitated but redirectable Speech: Soft, slurred Mood: Labile Affect: Blunted Thought process: Poverty of thought Thought Content: wanting snacks Cognition: A&O X3 Insight: Poor Judgment: Poor Interventions PRN's used: Trazodone 100mg Therapeutic interventions: Introduced self and attempted to establish rapport, ensured contract for safety, maintained a safe and therapeutic environment, provided clear and simple instructions, attempted to orient to reality, monitored behaviors and need for intervention, provided redirection as needed, and maintained close observation per safety precautions. Restraints/seclusion/emergency medication: N/A Justification of Continued Inpatient Treatment: Pt. continues to require a safe and supportive environment, medication adjustments, behavioral management, while awaiting placement by conservator.
[2020-01-06] MEDS: quetiapine 100mg tablet PO SCH ×3 (07:22→19:46)
[2020-01-06] MEDS: lithium carbonate 150mg capsule PO SCH ×3 (07:22→19:44)
[2020-01-06] MEDS: QUEtiapine 25mg tablet PO SCH ×3 (07:23→19:47)
[2020-01-06] MEDS: divalproex sod 250mg ER (24-hour) tablet PO SCH ×3 (07:23→17:41)
[2020-01-06] MEDS: propranolol 10mg tablet PO SCH ×3 (07:23→19:45)
[2020-01-06] MEDS: LORazepam 1 MG tablet PO SCH ×3 (07:24→19:46)
[2020-01-06] MEDS: mineral oil/petrolatum, white cream 113gm jar TP SCH ×2 (07:30→19:52)
[2020-01-06 08:07] VITALS: BP 105/54
[2020-01-06] MEDS: tizanidine 4mg tablet PO PRN (12:48)
[2020-01-06] MEDS: NICOTINE POLACRILEX 2 MG LOZENGE BC PRN (14:24)
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
--- NOTE | 2020-01-06 18:18 | NUR ---
Continued Art Therapy Group: Patient was voluntarily present at the onset of group and was able to participate in the activity, following all directives. Patient requested to leave after 45 minutes, just before the group was going to 'process the journaling' activity. Patient was appropriate and left the room without incidence. Patient returned to the group session the last 15 minutes of group and listened to a few of his peers. This is the first time this patient has attended any art therapy groups. Patient choose to write a poem which he read and was posted in the group room. Patient seemed content to have been participating in the group, and at times was laughing and smiling as he received compliments from a couple of his peers for choosing to attend/participate in the group. Bela Osullivan MA (Alena Marie), CYBER THREAT ANALYST #[id number] [facility] Addendum: 01/06/20 at 1822 by Bela Osullivan Amended: Links added.
[2020-01-06] MEDS: acetaminophen 325mg tablet PO PRN (19:48)
[2020-01-06] MEDS: traZODone 50mg tablet PO SCH (19:48)
[2020-01-06 20:27] VITALS: BP 149/86
--- NOTE | 2020-01-07 00:43 | NUR ---
Nursing Progress Note: [facility] Legal hold: Tcon Client on involuntary status for GD. Report received from Gelacio RN with use of SBAR. Why are they here: Pt admitted to [place] for Behavioral health today on a 5150 for gravely disabled. Pt has been unable to care for himself. He is unable to verbalize a viable plan for food, clothing, and care home. Pt is responding to internal stimuli. Pt repeatedly comes to the [place] crisis unit begging for food with significant weight loss.. Pt unable to manage finances and is disheveled and unkempt. The county is seeking conservatorship and need his 5250 faxed to them at [phone] to start T-con paperwork. Pt has history of schizophrenia and bipolar. Assessment What has happened this shift: PT remains on a 1:1.He is alert and socializing on the unit at shift change, walking the halls and standing in the rec room. He appears easily agitated by certain patients, so an effort is made to keep them apart to avoid any confrontation. Irineo does well with this. He is cooperative for 1:1 assessment and medication compliant. PT appears tired and remains polite during interaction. He thanks customs entry writer and compliments customs entry writer, he also asks, "can you adopt me please?"Pt denies SI/HI/AH/VH at this time. He does well when listening to headphones. S/I, H/I: Denies A/VH: denies Sleep: see sleep hours ADL's: Independent with prompting. Pt need prompting to use eating utensils and change clothing. Group attendance: no Were meds taken: Yes Any med S/E: none reported, none observed Mental Status Exam Appearance: clean in jeans and a green scrub top Eye contact: poor Behavior: sleeps most of shift, pleasant while awake Speech: Clear Mood: pleasant while awake Affect: blunted Thought process: Circumstantial Thought Content: Focused on food and going home to his family Cognition: A&Ox2 Insight Poor Judgment: Poor Interventions PRN's used: none Therapeutic interventions: 1:1 therapeutic assessment, medication administration, monitored for change in behavior, provided active listening, positive feedback, reassurance, encouragement Q15 minute safety checks. Restraints/seclusion/emergency medication: None Justification of Continued Inpatient Treatment: Pt need a safe and supportive environment to interrupt current crisis. Gravely disabled may require placement.
[2020-01-07 07:30] VITALS: BP 124/78
[2020-01-07] MEDS: mineral oil/petrolatum, white cream 113gm jar TP SCH ×2 (08:00→19:47)
[2020-01-07] MEDS: propranolol 10mg tablet PO SCH ×3 (08:56→19:38)
[2020-01-07] MEDS: quetiapine 100mg tablet PO SCH ×3 (08:56→19:34)
[2020-01-07] MEDS: divalproex sod 250mg ER (24-hour) tablet PO SCH ×3 (08:57→17:24)
[2020-01-07] MEDS: QUEtiapine 25mg tablet PO SCH ×3 (08:57→19:33)
[2020-01-07] MEDS: lithium carbonate 150mg capsule PO SCH ×3 (08:58→19:30)
[2020-01-07] MEDS: LORazepam 1 MG tablet PO SCH ×4 (08:58→19:46)
[2020-01-07] MEDS: NICOTINE POLACRILEX 2 MG LOZENGE BC PRN (09:57)
--- NOTE | 2020-01-07 10:00 | NUR ---
Group Therapy: Process Group This Clinicians goals for this process group were as follows: (1) Ask scaling questions about patients current anxiety, depression, and irritability symptoms as a check-in. (2) Share psychoeducation about emotional relaxation techniques with patients, including information on: mindfulness, meditation controlled breathing, progressive muscle relaxation, guided visualization. (3) Model and practice controlled breathing, progressive muscle relaxation, and guided visualization with patients within the group milieu. (4) Process patients comments and reflections on the before-mentioned activities after they have participated in them. Patient identified experiencing the following levels of anxiety, depression, and anger/irritability while present in the group milieu (0-low; 10-High). Anxiety: 0/10 Depression: "I'm not sure."/10 Anger/irritability: 2/10 Patient presented as properly oriented to person, place, and situation during the process group. Patient was dressed in nondescript, personal clothing that were appropriate within the milieu. He wore a dark blue t-shirt and dark grissom sinan jeans. Psychomotor activity was unremarkable. Patient drooled on himself on one occasion as he spoke. Patient wore head phones in the group milieu. On one occasion, Patient put his head phones on and was listening to music. He began to sing out loud as this Clinician was sharing psychoeducation on emotional relaxation techniques. With gentle verbal prompting, this Clinician told Patient that he would need to refrain from singing so this Clinician could share information in the process group. Patient stopped singing and participated well during portions of the process group. Patient's thought content was clear, and concrete. Patient's thought process was clear, coherent, and linear. This Clinician did not observe Patient responding to any internal stimuli during session. The tone of Patients speech was within normal limits. The rate and latency of his speech was slightly delayed Patient maintained intermittent eye contact with this Clinician. Patient presented in calm euthymic mood, with congruent affect during the process group. Patient presented as open and cooperative, and was verbally engaged during the process group. Patient practiced controlled breathing during the process group when it was modeled for him by this Clinician. During discussion on guided visualization, in the context of developing a "safe memory" or place, Patient shared a positive memory of a place that he recalled in [place] that had a special meaning for him, next to olive trees and his Uncle's house. This Clinician along with several of patient's peers praised and validated him for sharing this memory during the process group. Keegan Ochoa MA, CADD OPERATOR Addendum: 01/08/20 at 0840 by Keegan Ochoa SS Amended: Links added.
[2020-01-07] MEDS: LORazepam 1 MG tablet PO PRN (10:25)
[2020-01-07] MEDS: haloperidol 5mg tablet PO PRN (11:25)
[2020-01-07] MEDS: diphenhydrAMINE 25mg capsule PO PRN ×2 (11:26→19:32)
[2020-01-07] MEDS: benztropine 1mg tablet PO PRN (11:26)
--- NOTE | 2020-01-07 18:02 | NUR ---
Nursing Progress Note: ANA Legal hold: T-Con Client on involuntary status for GD Report received from FRANCISCO J Young with use of SBAR Why are they here: Pt admitted to [place] for [facility] health on a 5150 for gravely disabled. Pt has been unable to care for himself. He is unable to verbalize a viable plan for food, clothing, and fdc. Pt is responding to internal stimuli. Pt repeatedly comes to the [place] [facility] begging for food with significant weight loss. Pt unable to manage finances and is disheveled and unkempt. Pt has history of schizophrenia and bipolar. Assessment What has happened this shift: Pt. is on LOS. Pt. awake for breakfast. Pt. took all medications and ate all meals in the community room. Pt. in a jovial mood, laughing and joking with staff and patients until mid morning pt. became more pensive, staring out the window and then requested Ativan and received 2mg with good effect. Pt. reports feeling sad about his continued hospitalization. RN encouraged pt. to focus on preparing for his [employer] hearing on January 11. Pt. denies SI/HI, A/V hallucinations. Pt. has poor boundaries with peers and after being told not to hug another pt. pt. attempted to do this anyway and became angry when corrected and started yelling, I want to leave! Pt. then began shouting racial slurs. When pt. informed that this language was not appropriate pt. continued. Pt. offered PRN medication and received Haldol 5mg, Cogentin 0.5mg, and Benadryl 50mg with good effect. Pt. then began to cry, stating, I want my family. In the afternoon pt. received phone call from his conservator and began yelling and cursing but was re-directiable. Pt. became tearful, stating, I just want to leave My mom on July 27, 2019, she would have picked me up immediately from this place. S/I, H/I: Denies A/VH: Denies Sleep: Pt. did not nap on day shift. ADL's: Requires prompting from staff. Group attendance: no Were meds taken: Yes Any med S/E: None Mental Status Exam Appearance: Unkempt, wearing personal clothing Eye contact: Fair Behavior: listening to headphones, singing loudly, dancing in halls, laughing and joking with peers and staff. Compliant with care Speech: Soft, slurred Mood: Labile Affect: Blunted Thought process: Poverty of thought, perseverative Thought Content: Discharge, food. Cognition: A&O X3 Insight: Poor Judgment: Poor Interventions PRN's used: Ativan, Haldol, Benadryl, Cogentin po x1 Therapeutic interventions: Introduced self and attempted to establish rapport, ensured contract for safety, maintained a safe and therapeutic environment, provided clear and simple instructions, attempted to orient to reality, monitored behaviors and need for intervention, provided redirection as needed, and maintained close observation per safety precautions. Restraints/seclusion/emergency medication: N/A Justification of Continued Inpatient Treatment: Pt. continues to require a safe and therapeutic environment while awaiting placement by conservator.
[2020-01-07] MEDS: traZODone 50mg tablet PO SCH (19:36)
[2020-01-07 20:21] VITALS: BP 137/85
--- NOTE | 2020-01-08 03:29 | NUR ---
Nursing Progress Note: Irineo Legal hold: Tcon Client on involuntary status for GD. Report received from Marcelo MARX with use of SBAR. Why are they here: Pt admitted to [place] for Behavioral health today on a 5150 for gravely disabled. Pt has been unable to care for himself. He is unable to verbalize a viable plan for food, clothing, and care home. Pt is responding to internal stimuli. Pt repeatedly comes to the [place] crisis unit begging for food with significant weight loss.. Pt unable to manage finances and is disheveled and unkempt. The county is seeking conservatorship and need his 5250 faxed to them at [phone] to start T-con paperwork. Pt has history of schizophrenia and bipolar. Assessment What has happened this shift: PT remains on a 1:1. Pt expresses his frustration to junior copywriter about possibly being conserved. I hate being conserved, every place they send me they try to over regulate us and the clients fight. I am trying really hard to be good and not freak out and yell, I try to tell myself to just stay calm when I get angry but its really hard because it just doesnt seem fair. I want to do the right thing. He expresses how his sister who is 28 hurts his feelings and upsets him because she says things like, I will call your case specialist and have them keep you in there. I am smarter than you. He talks about missing going to sweat lodges and being with elders in his [place] community and going on vision quests. S/I, H/I: Denies A/VH: denies Sleep: see sleep hours ADL's: Independent with prompting. Pt need prompting to use eating utensils and change clothing. Group attendance: no Were meds taken: Yes Any med S/E: none reported, none observed Mental Status Exam Appearance: clean in jeans and a green scrub top Eye contact: poor Behavior: sleeps most of shift, pleasant while awake Speech: Clear Mood: pleasant while awake Affect: blunted Thought process: Circumstantial Thought Content: Focused on food and going home to his family Cognition: A&Ox2 Insight Poor Judgment: Poor Interventions PRN's used: benadryl 50 mg Therapeutic interventions: 1:1 therapeutic assessment, medication administration, monitored for change in behavior, provided active listening, positive feedback, reassurance, encouragement Q15 minute safety checks. Restraints/seclusion/emergency medication: None Justification of Continued Inpatient Treatment: Pt need a safe and supportive environment to interrupt current crisis. Gravely disabled may require placement.
[2020-01-08 07:30] VITALS: BP 124/77
[2020-01-08] MEDS: mineral oil/petrolatum, white cream 113gm jar TP SCH ×2 (08:00→20:07)
[2020-01-08] MEDS: propranolol 10mg tablet PO SCH ×3 (08:28→20:06)
[2020-01-08] MEDS: divalproex sod 250mg ER (24-hour) tablet PO SCH ×3 (08:29→17:30)
[2020-01-08] MEDS: quetiapine 100mg tablet PO SCH ×3 (08:29→20:05)
[2020-01-08] MEDS: QUEtiapine 25mg tablet PO SCH ×3 (08:29→20:05)
[2020-01-08] MEDS: lithium carbonate 150mg capsule PO SCH ×3 (08:30→20:06)
[2020-01-08] MEDS: LORazepam 1 MG tablet PO SCH ×4 (08:30→20:06)
[2020-01-08] MEDS: acetaminophen 325mg tablet PO PRN (10:38)
[2020-01-08] MEDS: NICOTINE POLACRILEX 2 MG LOZENGE BC PRN ×3 (11:33→16:47)
[2020-01-08] MEDS: haloperidol 5mg tablet PO PRN (15:27)
[2020-01-08] MEDS: diphenhydrAMINE 25mg capsule PO PRN (15:27)
[2020-01-08] MEDS: benztropine 1mg tablet PO PRN (15:28)
[2020-01-08] MEDS: LORazepam 1 MG tablet PO PRN (15:28)
--- NOTE | 2020-01-08 17:17 | NUR ---
Nursing Progress Note: Legal hold: T-Con Client on involuntary status for GD Report received from FRANCISCO J Jerry with use of SBAR Why are they here: Pt admitted to [place] for [facility] health on a 5150 for gravely disabled. Pt has been unable to care for himself. He is unable to verbalize a viable plan for food, clothing, and detention. Pt is responding to internal stimuli. Pt repeatedly comes to the [place] [facility] begging for food with significant weight loss. Pt unable to manage finances and is disheveled and unkempt. Pt has history of schizophrenia and bipolar. Assessment What has happened this shift: Pt. is on LOS. Pt. awoke for breakfast and ate in his room. Pt. took all medications. Pt. is in a jovial mood most of the AM, singing, joking, and laughing with until mid morning when pt. became depressed, looking out the window and stating, These conservators are trying to keep me here. Pt. reports anger at his continued hospitalization. RN encouraged pt. to focus on preparing for his [employer] hearing on January 11 and consider the time that has already elapsed. Pt. denies SI/HI, A/V hallucinations. Pt. then became euthymic, listening to headphones and singing. Pt.s 1:1 LOS altered at noon time. Pt. is now off of 1:1 while in his room resting and sleeping but is LOS when out in the milieu. Pt. got into verbal altercation with another pt. in the afternoon but was verbally redirected. RN asked pt. if he felt he needed something to help him relax and pt. said yes. Pt. given Ativan 2mg, Haldol 5mg, Benadryl 50mg and Cogentin 0.5mg with good effect. S/I, H/I: Denies A/VH: Denies Sleep: Pt. did not nap on day shift. ADL's: Requires prompting from staff. Group attendance: Yes Were meds taken: Yes Any med S/E: Denies Mental Status Exam Appearance: Unkempt, wearing personal clothing Eye contact: Fair Behavior: listening to headphones, talking and singing loudly, dancing in halls, laughing and joking with peers and staff. Becoming argumentative at times but overall compliant with care Speech: Loud Mood: Labile Affect: Congruent with mood Thought process: Poverty of thought, perseverative Thought Content: Discharge, food. Cognition: A&O X3 Insight: Poor Judgment: Poor Interventions PRN's used: Ativan 2mg, Haldol 5mg, Benadryl 50mg, Cogentin 0.5mg Therapeutic interventions: Introduced self and attempted to establish rapport, ensured contract for safety, maintained a safe and therapeutic environment, provided clear and simple instructions, attempted to orient to reality, monitored behaviors and need for intervention, provided redirection as needed, and maintained close observation per safety precautions. Restraints/seclusion/emergency medication: N/A Justification of Continued Inpatient Treatment: Pt. continues to require a safe and therapeutic environment while awaiting placement by conservator.
[2020-01-08 19:32] VITALS: BP 126/69
[2020-01-08] MEDS: tizanidine 4mg tablet PO PRN (19:38)
[2020-01-08] MEDS: traZODone 50mg tablet PO SCH (20:06)
--- NOTE | 2020-01-09 00:51 | NUR ---
Nursing Progress Note: [facility] Legal hold: T-Con Client on involuntary status for GD Report received from FRANCISCO J Robertson with use of SBAR Why are they here: Pt admitted to [place] for Behavioral health on a 5150 for gravely disabled. Pt has been unable to care for himself. He is unable to verbalize a viable plan for food, clothing, and chcf. Pt is responding to internal stimuli. Pt repeatedly comes to the [place] [facility] begging for food with significant weight loss. Pt unable to manage finances and is disheveled and unkempt. Pt has history of schizophrenia and bipolar. Assessment What has happened this shift: Pt pacing the halls, interacting with peers and staff in a mostly friendly manner. He became demanding and agitated about wanting more to eat but was easily distracted and redirectable this evening. He attended snack, and was joking around with staff this evening, smiling more than most evenings. He was compliant with medications and requested a PRN for his lower back pain, which was given to good effect. Pt's feet have improved and cream was applied to both feet before pt retired to bed. S/I, H/I: Denies A/VH: Denies Sleep: Pt fell asleep after medications administration, See sleep assessment ADL's: Requires direction from staff Group attendance: N/A Were meds taken: Yes Any med S/E: None Mental Status Exam Appearance: Unkempt, wearing personal clothing Eye contact: Fair Behavior: Cooperative at times, engaging with staff and peers appropriately, Pacing, easily Agitated but redirectable Speech: Soft, slight slur Mood: Labile Affect: Blunted with occasional brightening Thought process: Poverty of thought Thought Content: Possible A/V/H, ankle and back pain, wanting snacks Cognition: A&O X3 Insight: Poor Judgment: Poor Interventions PRN's used: Zanaflex 4mg for lower back pain to good effect Therapeutic interventions: Introduced self and attempted to establish rapport, ensured contract for safety, maintained a safe and therapeutic environment, provided clear and simple instructions, attempted to orient to reality, monitored behaviors and need for intervention, provided redirection as needed, and maintained close observation per safety precautions. Restraints/seclusion/emergency medication: N/A Justification of Continued Inpatient Treatment: Pt. continues to require a safe and supportive environment, medication adjustments, behavioral management, while awaiting placement by conservator.
[2020-01-09 07:30] VITALS: BP 124/79
[2020-01-09] MEDS: mineral oil/petrolatum, white cream 113gm jar TP SCH ×2 (08:00→20:05)
[2020-01-09] MEDS: propranolol 10mg tablet PO SCH ×3 (08:47→20:04)
[2020-01-09] MEDS: divalproex sod 250mg ER (24-hour) tablet PO SCH ×3 (08:48→17:31)
[2020-01-09] MEDS: QUEtiapine 25mg tablet PO SCH ×3 (08:48→20:02)
[2020-01-09] MEDS: quetiapine 100mg tablet PO SCH ×3 (08:48→20:02)
[2020-01-09] MEDS: lithium carbonate 150mg capsule PO SCH ×3 (08:49→20:01)
[2020-01-09] MEDS: LORazepam 1 MG tablet PO SCH ×4 (08:50→20:03)
[2020-01-09] MEDS: haloperidol 5mg tablet PO PRN (11:29)
[2020-01-09] MEDS: benztropine 1mg tablet PO PRN (11:29)
[2020-01-09] MEDS: LORazepam 1 MG tablet PO PRN (11:29)
[2020-01-09] MEDS: diphenhydrAMINE 25mg capsule PO PRN (11:29)
[2020-01-09] MEDS: NICOTINE POLACRILEX 2 MG LOZENGE BC PRN ×3 (12:50→18:46)
[2020-01-09] MEDS ORDERED: LORazepam 1 MG tablet PO ONE (15:15)
[2020-01-09] MEDS ORDERED: diphenhydrAMINE 25mg capsule PO ONE (15:15)
[2020-01-09] MEDS ORDERED: benztropine 1mg tablet PO ONE (15:15)
[2020-01-09] MEDS ORDERED: haloperidol 5mg tablet PO ONE (15:15)
--- NOTE | 2020-01-09 17:19 | NUR ---
Nursing Progress Note: Legal hold: T-Con Client on involuntary status for GD Report received from RN Yanni Her with use of SBAR Why are they here: Pt admitted to [place] for [facility] health on a 5150 for gravely disabled. Pt has been unable to care for himself. He is unable to verbalize a viable plan for food, clothing, and mcc. Pt is responding to internal stimuli. Pt repeatedly comes to the [place] [facility] begging for food with significant weight loss. Pt unable to manage finances and is disheveled and unkempt. Pt has history of schizophrenia and bipolar. Assessment What has happened this shift: Pt. is on LOS while in the hallway. Pt. awoke for breakfast and ate in his room. Pt. took all medications. Pt. refused physical assessment this AM. 1:1 done at bedside. Pt. in a somber mood this AM, pt. states, I want to go home. Pt. denies SI/HI, A/V hallucinations. Pt.s mood improved, pt. seen laughing and joking with staff and patients, rapping and singing while pacing the halls. Pt. requested a second mocha and when told no, pt. became angry, yelling I want to leave! slamming his door. Pt. offered PRN Ativan 2mg, Haldol 5mg, Benadryl 50mg, and Cogentin 0.5mg and took with moderate effect. Pt. napped briefly before lunch. Pt. then in a jovial mood until being told he could not have a PBJ sandwich because he already had one, pt. then became angry, yelling, cursing, and slamming his door. Pt. has poor insight stating, Telma done nothing wrong! RN received now dose for Ativan 2mg, Haldol 5mg, Benadryl 50mg, and Cogentin 0.5mg po and pt. took with good effect. Pt. has poor boundaries with other patients and has to be reminded to keep his hands to himself. S/I, H/I: Denies A/VH: Denies Sleep: Pt. napped intermittently in the AM. ADL's: Requires prompting from staff. Group attendance: Yes Were meds taken: Yes Any med S/E: Some drooling. Mental Status Exam Appearance: Unkempt, wearing personal clothing Eye contact: Fair Behavior: listening to headphones, talking, singing, and rapping loudly in the halls, laughing and joking with peers and staff. Pt. becomes angry when told no. Speech: Loud Mood: Labile Affect: Congruent with mood Thought process: Poverty of thought, perseverative Thought Content: Discharge, food. Cognition: A&O X3 (Not to situation) Insight: Poor Judgment: Poor Interventions PRN's used: Ativan 2mg, Haldol 5mg, Benadryl 50mg, Cogentin 0.5mg po x2 Therapeutic interventions: Introduced self and attempted to establish rapport, ensured contract for safety, maintained a safe and therapeutic environment, provided clear and simple instructions, attempted to orient to reality, monitored behaviors and need for intervention, provided redirection as needed, and maintained close observation per safety precautions. Restraints/seclusion/emergency medication: N/A Justification of Continued Inpatient Treatment: Pt. continues to require a safe and therapeutic environment while awaiting placement by conservator.
[2020-01-09] MEDS: tizanidine 4mg tablet PO PRN (18:53)
[2020-01-09 20:00] VITALS: BP 122/62
[2020-01-09] MEDS: traZODone 50mg tablet PO SCH (20:05)
--- NOTE | 2020-01-10 04:33 | NUR ---
Nursing Progress Note: [facility] [place]: T-Con Client on involuntary status for GD Report received from FRANCISCO J Robertson with use of SBAR Why are they here: Pt admitted to [place] for Behavioral health on a 5150 for gravely disabled. Pt has been unable to care for himself. He is unable to verbalize a viable plan for food, clothing, and half-way. Pt is responding to internal stimuli. Pt repeatedly comes to the [place] [facility] begging for food with significant weight loss. Pt unable to manage finances and is disheveled and unkempt. Pt has history of schizophrenia and bipolar. Assessment What has happened this shift: Pt pacing the halls, interacting with peers and staff in a mostly friendly manner. He was fatigued this evening, and pulled this RN aside to share his grievances of the day but was calm thereafter. He requested his medications very early this shift, but accepted he could not have them until they were scheduled. He attended snack, and was joking around with staff this evening, smiling more than most evenings. He was compliant with medications and requested a PRN for his lower back pain, which was given to good effect. Pt's feet have improved and cream was applied to both feet before pt retired to bed. S/I, H/I: Denies A/VH: Denies Sleep: See sleep assessment ADL's: Requires direction from staff Group attendance: N/A Were meds taken: Yes Any med S/E: None Mental Status Exam Appearance: Unkempt, wearing personal clothing Eye contact: Fair Behavior: Cooperative, engaging with staff and peers appropriately, Pacing Speech: Soft, slight slur Mood: Labile; Pt presented as tired this evening Affect: Blunted with occasional brightening Thought process: Poverty of thought Thought Content: back pain, wanting snacks, wanting to go to sleep Cognition: A&O X3 Insight: Poor Judgment: Poor Interventions PRN's used: Zanaflex 4mg for lower back pain to good effect Therapeutic interventions: Introduced self and attempted to establish rapport, ensured contract for safety, maintained a safe and therapeutic environment, provided clear and simple instructions, attempted to orient to reality, monitored behaviors and need for intervention, provided redirection as needed, and maintained close observation per safety precautions. Restraints/seclusion/emergency medication: N/A Justification of Continued Inpatient Treatment: Pt. continues to require a safe and supportive environment, medication adjustments, behavioral management, while awaiting placement by conservator.
[2020-01-10 08:00] VITALS: BP 109/56
[2020-01-10] MEDS: lithium carbonate 150mg capsule PO SCH ×3 (08:20→20:04)
[2020-01-10] MEDS: LORazepam 1 MG tablet PO SCH ×4 (08:20→20:04)
[2020-01-10] MEDS: quetiapine 100mg tablet PO SCH ×3 (08:20→20:04)
[2020-01-10] MEDS: propranolol 10mg tablet PO SCH ×3 (08:20→20:03)
[2020-01-10] MEDS: divalproex sod 250mg ER (24-hour) tablet PO SCH ×3 (08:20→17:40)
[2020-01-10] MEDS: mineral oil/petrolatum, white cream 113gm jar TP SCH ×2 (08:21→20:04)
[2020-01-10] MEDS: QUEtiapine 25mg tablet PO SCH ×3 (08:21→20:04)
[2020-01-10] MEDS: NICOTINE POLACRILEX 2 MG LOZENGE BC PRN ×2 (10:01→17:39)
[2020-01-10] MEDS: LORazepam 1 MG tablet PO PRN (11:54)
[2020-01-10] MEDS: acetaminophen 325mg tablet PO PRN (11:55)
[2020-01-10] MEDS: diphenhydrAMINE 25mg capsule PO PRN (14:32)
[2020-01-10] MEDS: haloperidol 5mg tablet PO PRN (14:32)
[2020-01-10] MEDS: benztropine 1mg tablet PO PRN (14:33)
--- NOTE | 2020-01-10 17:26 | NUR ---
Nursing Progress Note Legal hold: T-Con Client on involuntary status for GD Report received from RN with use of SBAR Why are they here: Pt admitted to [place] for [facility] health on a 5150 for gravely disabled. Pt has been unable to care for himself. He is unable to verbalize a viable plan for food, clothing, and fpc. Pt is responding to internal stimuli. Pt repeatedly comes to the [place] [facility] begging for food with significant weight loss.. Pt unable to manage finances and is disheveled and unkempt. Pt has history of schizophrenia and bipolar. Assessment What has happened this shift: Received Pt sleeping in bed w/o distress, with line of sight staff sitting right at door, at change of shift. Patient woke for vitals and ate breakfast in his room. Pt took AM meds w/o issue. Irineo stated Im going back to bed and slept for another hour. Pt woke and walked halls with headphones and interacted with LOS staff. Pt sings and raps with headphones on and makes requests for snacks and drinks. Overall, Irineo was able to control outbursts better today although he did yell and hit wall a couple times. He was given prn meds for agitation twice and responded well to verbal intervention. He got his hair trimmed today and liked the way it looks, as he is wanting to look good for his court hearing on 01/11. S/I, H/I: Denies A/VH: Denies Sleep: Pt napped in AM ADL's: Requires direction from staff Group attendance: No Were meds taken: Yes Any med S/E: None Mental Status Exam Appearance: Casual in street clothes Eye contact: Fair, intense gaze when irritated Behavior: Cooperative at times, agitated, easily angered Speech: Varies between soft and aggressively shouting Mood: Anxious and restless, however able to be redirected Affect: Labile Thought process: Poverty of thought Thought Content: Preoccupation with desire to discharge and food Cognition: A&O X3 Insight: Poor Judgment: Poor Interventions PRN's used: Ativan, Haldol, benadryl Therapeutic interventions: Introduced self and attempted to establish rapport, ensured contract for safety, maintained a safe and therapeutic environment, provided clear and simple instructions, attempted to orient to reality, monitored behaviors and need for intervention, provided redirection as needed, and maintained close observation per safety precautions. Restraints/seclusion/emergency medication: N/A Justification of Continued Inpatient Treatment: Pt. continues to requires a safe and supportive environment, medication adjustments, behavioral management, while awaiting placement by conservator.
[2020-01-10 20:00] VITALS: BP 133/82
[2020-01-10] MEDS: traZODone 50mg tablet PO SCH (20:03)
--- NOTE | 2020-01-11 00:20 | NUR ---
Nursing Progress Note: [facility] Legal hold: T-Con Client on involuntary status for GD Report received from FRANCISCO J Castillo with use of SBAR Why are they here: Pt admitted to [place] for Behavioral health on a 5150 for gravely disabled. Pt has been unable to care for himself. He is unable to verbalize a viable plan for food, clothing, and correction. Pt is responding to internal stimuli. Pt repeatedly comes to the [place] [facility] begging for food with significant weight loss. Pt unable to manage finances and is disheveled and unkempt. Pt has history of schizophrenia and bipolar. Assessment What has happened this shift: Pt pacing the halls, interacting with peers and staff in a friendly manner. He played some VYou and rapped while listening to headphones. He attended snack, and stated he was "full up" after snack and felt good. Pt was in a happy mood. He was compliant with medications and cream was applied to both feet before pt retired to bed. S/I, H/I: Denies A/VH: Denies Sleep: See sleep assessment ADL's: Requires direction from staff Group attendance: N/A Were meds taken: Yes Any med S/E: None Mental Status Exam Appearance: Unkempt, wearing personal clothing Eye contact: Fair Behavior: Cooperative, engaging with staff and peers appropriately, Pacing, listening to headphones Speech: Soft, slight slur Mood: Pt presented as happy this evening Affect: Blunted with occasional brightening Thought process: Poverty of thought Thought Content: wanting snacks, wanting to go to sleep Cognition: A&O X3 Insight: Poor Judgment: Poor Interventions PRN's used: N/A Therapeutic interventions: Introduced self and attempted to establish rapport, ensured contract for safety, maintained a safe and therapeutic environment, provided clear and simple instructions, attempted to orient to reality, monitored behaviors and need for intervention, provided redirection as needed, and maintained close observation per safety precautions. Restraints/seclusion/emergency medication: N/A Justification of Continued Inpatient Treatment: Pt. continues to require a safe and supportive environment, medication adjustments, behavioral management, while awaiting placement by conservator.
[2020-01-11] MEDS: QUEtiapine 25mg tablet PO SCH ×3 (07:29→19:22)
[2020-01-11] MEDS: propranolol 10mg tablet PO SCH ×3 (07:29→19:23)
[2020-01-11] MEDS: quetiapine 100mg tablet PO SCH ×3 (07:29→19:22)
[2020-01-11 07:30] VITALS: BP 122/71
[2020-01-11] MEDS: divalproex sod 250mg ER (24-hour) tablet PO SCH ×3 (07:30→17:54)
[2020-01-11] MEDS: lithium carbonate 150mg capsule PO SCH ×3 (07:30→19:22)
[2020-01-11] MEDS: LORazepam 1 MG tablet PO SCH ×4 (07:30→19:22)
[2020-01-11] MEDS: mineral oil/petrolatum, white cream 113gm jar TP SCH ×2 (08:00→20:00)
[2020-01-11] MEDS: NICOTINE POLACRILEX 2 MG LOZENGE BC PRN ×2 (11:51→16:55)
--- NOTE | 2020-01-11 17:44 | NUR ---
Nursing Progress Note: Legal hold: T-Con Client on involuntary status for GD Report received from RN Yanni Her with use of SBAR Why are they here: Pt admitted to [place] for [facility] health on a 5150 for gravely disabled. Pt has been unable to care for himself. He is unable to verbalize a viable plan for food, clothing, and mcfp. Pt is responding to internal stimuli. Pt repeatedly comes to the [place] [facility] begging for food with significant weight loss. Pt unable to manage finances and is disheveled and unkempt. Pt has history of schizophrenia and bipolar. Assessment What has happened this shift: Pt. is on LOS while in the hallway. Pt. awoke for breakfast and ate in his room. Pt. took all medications. Pt. went back to bed, choosing to sleep on the floor. Pt. awoke and 1:1 assessment done at bedside. Pt. is anxious about his court hearing tomorrow. Pt. denies SI/HI, A/V hallucinations. Pt. states, "I want to go home, I don't want to be controlled by a conservator". Pt.'s moved improved and pt. loudly rapping in the hallway. Pt. had 2 outbursts today, the first at snack time, yelling, "The coffee is too hot!" and another outburst when he asked for headphones but there were none available. Pt. redirected back to his room by his 1:1 staff. Pt. requested Ativan and received 2mg with good effect. Pt. able to calm down. Pt. did attend group for a short amount of time but is not able to keep his attention. Pt. seen socializing, joking, and singing with other patients. S/I, H/I: Denies A/VH: Denies Sleep: Pt. napped x1 in the AM. ADL's: Requires prompting from staff. Group attendance: No Were meds taken: Yes Any med S/E: None observed, none reported. Mental Status Exam Appearance: Unkempt, wearing personal clothing Eye contact: Fair Behavior: listening to headphones, talking, singing, and rapping loudly in the halls, laughing and joking with peers and staff. Pt. becomes angry when told no. Speech: Loud Mood: Labile Affect: Congruent with mood Thought process: Poverty of thought, perseverative Thought Content: Court, discharge, food. Cognition: A&O X3 (Not to situation) Insight: Poor Judgment: Poor Interventions PRN's used: Ativan 2mg x1 Therapeutic interventions: Introduced self and attempted to establish rapport, ensured contract for safety, maintained a safe and therapeutic environment, provided clear and simple instructions, attempted to orient to reality, monitored behaviors and need for intervention, provided redirection as needed, and maintained close observation per safety precautions. Restraints/seclusion/emergency medication: N/A Justification of Continued Inpatient Treatment: Pt. continues to require a safe and therapeutic environment while awaiting placement by conservator.
[2020-01-11] MEDS: traZODone 50mg tablet PO SCH (19:23)
[2020-01-11 20:34] VITALS: BP 136/76
--- NOTE | 2020-01-12 04:56 | NUR ---
Nursing Progress Note: Legal hold: T-Con Client on involuntary status for GD Report received from FRANCISCO J Brizuela with use of SBAR Why are they here: Pt admitted to [place] for [facility] health on a 5150 for gravely disabled. Pt has been unable to care for himself. He is unable to verbalize a viable plan for food, clothing, and penitentiary. Pt is responding to internal stimuli. Pt repeatedly comes to the [place] [facility] begging for food with significant weight loss. Pt unable to manage finances and is disheveled and unkempt. Pt has history of schizophrenia and bipolar. Assessment What has happened this shift: Patient pacing the halls and interacting with peers and staff at the beginning of shift. Pleasant and cooperative with care; compliant with medication. He continues to act silly, dancing in front of the nurse's station and making loud noises when wanting attention. Patient showered and cleaned up his room this shift. Patient presents anxious for court 01/11 as he does not want to be conserved but he continues to be able to contract a safety plan and reports, "I just will," when asked how he will be able to care for himself. He participated in HS snack prior to retiring to bed and does not appear to be having difficulty sleeping. S/I, H/I: Denies A/VH: Denies Sleep: Refer to sleep assessment ADL's: Requires direction from staff Group attendance: N/A Were meds taken: Yes Any med S/E: None observed or reported Mental Status Exam Appearance: Neat, clean, appropriate attire. Eye contact: Fair Behavior: Pleasant and cooperative; socializing with peers and staff; pacing the unit Speech: Impediment, clear and audible Mood: Euthymic Affect: Animated Thought process: Circumstantial Thought Content: Snacks, helping staff, court and not want to be conserved Cognition: A&O X3 Insight: Poor Judgment: Poor Interventions PRN's used: None Therapeutic interventions: Introduced self and attempted to establish rapport, ensured contract for safety, maintained a safe and therapeutic environment, provided clear and simple instructions, attempted to orient to reality, monitored behaviors and need for intervention, provided redirection as needed, and maintained close observation per safety precautions. Restraints/seclusion/emergency medication: N/A Justification of Continued Inpatient Treatment: Pt. continues to require a safe and supportive environment, medication adjustments, behavioral management, while awaiting placement by conservator.
[2020-01-12 07:30] VITALS: BP 121/79
[2020-01-12] MEDS: mineral oil/petrolatum, white cream 113gm jar TP SCH ×2 (08:00→19:50)
--- NOTE | 2020-01-12 08:00 | NUR ---
1:1-Behavioral & Emotional Support Presenting Issues: Pt's been making some progress w/his behaviors; while he continues to utilize maladaptive behaviors to cope with distress when he does not get/hear what he wants from staff, or when a peer gets into his personal space, pt's outbursts are shorter in duration and less intense now he is also able to follow staff directions when upset. Interventions: Today is pt's T-Con Hearing, pt had wanted to appear in court to plea his case. However, per t/c with [facility] PG's office, their PG do not transport pts to their Hearing but the public defenders do. [facility] does not plan on informing pt of this. SS consulted w/SS team, per consultation, SS will inform pt that he will not be able to go to his hearing this morning and provide support for pt to react/express his disappointment. SS met w/pt in collaboration w/Ch RN & assigned RN, SS informed pt that he will not be able to attend his Hearing today, pt became upset, expressed his frustration verbally- this was very brief, then he broke down and sobbed. SS & nursing staff provided support via comforting touch. When pt was able to regain his composure, he asked for food and was provided a sandwich & milk. SS praised pt for responding appropriately when he learned that he would not be able to attend his T-Con hearing, validating his emotional distress, normalizing his reaction (brief verbal expression of anger, disappointment w/o being loud and disrespectful of others around him and w/o any physical lashing out). Pt able to walk out of rec room on his own and was calm. Plan: SS will continue to provide 1:1 support for pt to practice adaptive behaviors to cope w/distressing events. Sheridan Obrien LCSW Addendum: 01/13/20 at 0838 by Sheridan Obrien SS Amended: Links added.
[2020-01-12] MEDS: lithium carbonate 150mg capsule PO SCH ×3 (08:34→20:43)
[2020-01-12] MEDS: QUEtiapine 25mg tablet PO SCH ×3 (08:35→20:42)
[2020-01-12] MEDS: quetiapine 100mg tablet PO SCH ×3 (08:35→20:42)
[2020-01-12] MEDS: divalproex sod 250mg ER (24-hour) tablet PO SCH ×3 (08:35→17:44)
[2020-01-12] MEDS: LORazepam 1 MG tablet PO SCH ×4 (08:36→20:43)
[2020-01-12] MEDS: propranolol 10mg tablet PO SCH ×3 (08:38→20:41)
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
[2020-01-12] MEDS: haloperidol 5mg tablet PO PRN (10:33)
[2020-01-12] MEDS: benztropine 1mg tablet PO PRN (10:33)
[2020-01-12] MEDS: LORazepam 1 MG tablet PO PRN (10:33)
[2020-01-12] MEDS: diphenhydrAMINE 25mg capsule PO PRN (10:33)
[2020-01-12] MEDS: NICOTINE POLACRILEX 2 MG LOZENGE BC PRN ×2 (10:37→15:48)
--- NOTE | 2020-01-12 14:52 | NUR ---
Reassessment: Pt continues with 75-100% avg PO intake of meals with double protein TID meeting nutrient needs. LBM 01/10. No nutrition intervention warranted at this time. Will continue to follow. Recommendations: 1) Continue regular diet 2) Double eggs q breakfast, double meat BIDLD per diet order 3) Bowel care PRN 4) Scaled weights per rx Addendum: 01/12/20 at [address] Amended: Links added.
--- NOTE | 2020-01-12 17:41 | NUR ---
Nursing Progress Note: Legal hold: T-Con Client on involuntary status for GD Report received from FRANCISCO J Her with use of SBAR Why are they here: Pt admitted to [place] for Behavioral health on a 5150 for gravely disabled. Pt has been unable to care for himself. He is unable to verbalize a viable plan for food, clothing, and usp. Pt is responding to internal stimuli. Pt repeatedly comes to the [facility] begging for food with significant weight loss. Pt unable to manage finances and is disheveled and unkempt. Pt has history of schizophrenia and bipolar. Assessment What has happened this shift: Pt. is on LOS. Pt. awoke for breakfast and ate in his room. Pt. took all medications. Pt. went back to bed. Pt. awoke and 1:1 assessment done at bedside. Pt. denies SI/HI, A/V hallucinations. and reports anxiety about court hearing today. Pt. did not go to court, instead [facility] contested for him in court. This was dissapointing to the pt., he began to cry. Pt. was able to calm himself. Pt. had some short outbursts of anger, yelling, "I want to go home". Pt. escorted to his room and was able to calm down. Pt. requested PRN and given Haldol 5mg, Ativan 2mg, Benadryl 50mg, and Cogentin 0.5mg with good effect. Pt. states, "I want to go home, I hate not being able to live my own life... There are too many rules here". Pt. asked about being able to live with his sister, RN encouraged pt. to discuss this with his conservator. Pt.'s mood improved and pt. seen talking and joking with other pt.'s. Pt. also rapping songs about his mother's tragic . Pt. became angry when he was told no to more snacks as well as phone during group time. Pt. requested PRN in afternoon and given Ativan 1mg with good effect. S/I, H/I: Denies A/VH: Denies Sleep: Pt. napped x1 in the AM. ADL's: Requires prompting from staff. Group attendance: No Were meds taken: Yes Any med S/E: None observed, none reported. Mental Status Exam Appearance: Unkempt, wearing personal clothing Eye contact: Fair Behavior: listening to headphones, talking and laughing loudly in halls. Social with peers. Pt. becomes angry when told no. Speech: Loud Mood: Labile Affect: Congruent with mood Thought process: Poverty of thought, perseverative Thought Content: Court, discharge, food. Cognition: A&O X3 (Not to situation) Insight: Poor Judgment: Poor Interventions PRN's used: Ativan 2mg x1 Therapeutic interventions: Introduced self and attempted to establish rapport, ensured contract for safety, maintained a safe and therapeutic environment, provided clear and simple instructions, attempted to orient to reality, monitored behaviors and need for intervention, provided redirection as needed, and maintained close observation per safety precautions. Restraints/seclusion/emergency medication: N/A Justification of Continued Inpatient Treatment: Pt. continues to require a safe and therapeutic environment while awaiting placement by conservator.
[2020-01-12] MEDS: traZODone 50mg tablet PO SCH (19:44)
[2020-01-12 20:43] VITALS: BP 118/69
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
[2020-01-13] MEDS: quetiapine 100mg tablet PO SCH ×3 (07:54→20:15)
[2020-01-13] MEDS: LORazepam 1 MG tablet PO SCH ×4 (07:55→20:09)
[2020-01-13] MEDS: QUEtiapine 25mg tablet PO SCH ×3 (07:55→20:15)
[2020-01-13] MEDS: divalproex sod 250mg ER (24-hour) tablet PO SCH ×3 (07:55→17:02)
[2020-01-13] MEDS: lithium carbonate 150mg capsule PO SCH ×3 (07:55→20:09)
[2020-01-13] MEDS: propranolol 10mg tablet PO SCH ×3 (07:55→20:09)
[2020-01-13] MEDS: mineral oil/petrolatum, white cream 113gm jar TP SCH ×2 (08:00→20:00)
[2020-01-13 08:31] VITALS: BP 116/57
[2020-01-13] MEDS: NICOTINE POLACRILEX 2 MG LOZENGE BC PRN ×3 (11:41→20:09)
[2020-01-13] MEDS: LORazepam 1 MG tablet PO PRN (14:31)
[2020-01-13] MEDS: diphenhydrAMINE 25mg capsule PO PRN ×2 (14:33→20:40)
[2020-01-13] MEDS: haloperidol 5mg tablet PO PRN (14:33)
--- NOTE | 2020-01-13 15:37 | NUR ---
Nursing Progress Note: Legal hold: T-Con Client on involuntary status for GD Report received from FRANCISCO J Young with use of SBAR Why are they here: Pt admitted to [place] for [facility] health on a 5150 for gravely disabled. Pt has been unable to care for himself. He is unable to verbalize a viable plan for food, clothing, and long-term. Pt is responding to internal stimuli. Pt repeatedly comes to the [place] [facility] begging for food with significant weight loss. Pt unable to manage finances and is disheveled and unkempt. Pt has history of schizophrenia and bipolar. Assessment What has happened this shift: Patient sleeping at the beginning of shift. Woke for breakfast and ate in his room prior to returning to bed. Patient refused to go to groups this shift. Patient tidied his room, showered and did own oral care this shift. He continues to perseverate on next snack or meal. He later became irritable when being redirected with staff d/t sharing his water with peers. Patient verbalized displeasure of not being able to discharge and began yelling escalating again and slamming his door. PRN Ativan 2mg, Benadryl 50mg and Haldol 5mg provided PO and patient cooperative with medication. Later observed socializing, dancing and singing in the halls. Will continue to monitor. S/I, H/I: Denies A/VH: Denies ADL's: Requires direction from staff Group attendance: No Were meds taken: Yes Any med S/E: None observed or reported Mental Status Exam Appearance: Showered, neat, appropriate attire. Eye contact: Fair Behavior: Singing and dancing, socializing with peers and staff; pacing the unit Speech: Impediment, clear and audible Mood: Labile Affect: Congruent to mood Thought process: Perseverates Thought Content: Meeting needs, food, discharge Cognition: A&O X3 Insight: Poor Judgment: Poor Interventions PRN's used: Ativan 2mg, Benadryl 50mg, Haldol 5mg Therapeutic interventions: Introduced self and attempted to establish rapport, ensured contract for safety, maintained a safe and therapeutic environment, provided clear and simple instructions, attempted to orient to reality, monitored behaviors and need for intervention, provided redirection as needed, and maintained close observation per safety precautions. Restraints/seclusion/emergency medication: N/A Justification of Continued Inpatient Treatment: Pt. continues to require a safe and supportive environment, medication adjustments, behavioral management, while awaiting placement by conservator.
[2020-01-13] MEDS: traZODone 50mg tablet PO SCH (20:09)
[2020-01-13] MEDS: acetaminophen 325mg tablet PO PRN (20:39)
[2020-01-13 20:58] VITALS: BP 120/81
--- NOTE | 2020-01-13 23:53 | NUR ---
Nursing Progress Note: Legal hold: T-Con Client on involuntary status for GD Report received from FRANCISCO J Brizuela with use of SBAR Why are they here: Pt admitted to [place] for [facility] health on a 5150 for gravely disabled. Pt has been unable to care for himself. He is unable to verbalize a viable plan for food, clothing, and detention. Pt is responding to internal stimuli. Pt repeatedly comes to the [place] [facility] begging for food with significant weight loss. Pt unable to manage finances and is disheveled and unkempt. Pt has history of schizophrenia and bipolar. Assessment What has happened this shift: Patient ambulating halls listening to music on headphones. Patient is upbeat, he smiles and chats with others. Late evening patient became irritable, he requested Benadryl in addition to his normal med's for rest. The patient ate a full dinner, he was medication compliant. S/I, H/I: Denies. A/VH: Denies. ADL's: Requires direction from staff. Group attendance: None on nights. Were meds taken: Yes, medication compliant. Any med S/E: None observed or reported. Mental Status Exam Appearance: Clean and neat. Eye contact: Fair. Behavior: Pacing, listening to music, singing. Labile late night. Speech: Impediment, clear and audible. Mood: Labile at times, yet friendly too. Affect: Congruent to mood. Thought process: Perseverates. Thought Content: Meeting needs, food, discharge. Cognition: A&O X3. Insight: Poor. Judgment: Poor. Interventions PRN's used: Benadryl. Therapeutic interventions: Introduced self and attempted to establish rapport, ensured contract for safety, maintained a safe and therapeutic environment, provided clear and simple instructions, attempted to orient to reality, monitored behaviors and need for intervention, provided redirection as needed, and maintained close observation per safety precautions. Restraints/seclusion/emergency medication: N/A Justification of Continued Inpatient Treatment: Pt. continues to require a safe and supportive environment, medication adjustments, behavioral management, while awaiting placement by conservator.
[2020-01-14 08:30] VITALS: BP 124/72
[2020-01-14] MEDS: QUEtiapine 25mg tablet PO SCH ×3 (08:40→20:08)
[2020-01-14] MEDS: quetiapine 100mg tablet PO SCH ×3 (08:40→20:08)
[2020-01-14] MEDS: divalproex sod 250mg ER (24-hour) tablet PO SCH ×3 (08:40→17:01)
[2020-01-14] MEDS: lithium carbonate 150mg capsule PO SCH ×3 (08:40→20:07)
[2020-01-14] MEDS: LORazepam 1 MG tablet PO SCH ×4 (08:40→20:26)
[2020-01-14] MEDS: propranolol 10mg tablet PO SCH ×3 (08:41→20:07)
[2020-01-14] MEDS: mineral oil/petrolatum, white cream 113gm jar TP SCH ×2 (08:43→20:17)
[2020-01-14] MEDS: NICOTINE POLACRILEX 2 MG LOZENGE BC PRN ×3 (08:52→19:05)
[2020-01-14] MEDS: LORazepam 1 MG tablet PO PRN ×2 (10:01→19:51)
[2020-01-14] MEDS: diphenhydrAMINE 25mg capsule PO PRN ×2 (10:03→20:05)
[2020-01-14] MEDS: haloperidol 5mg tablet PO PRN (10:03)
[2020-01-14 12:30] VITALS: BP 115/82
[2020-01-14 13:50] VITALS: BP 120/81
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
--- NOTE | 2020-01-14 15:08 | NUR ---
Nursing Progress Note: Legal hold: T-Con Client on involuntary status for GD Report received from FRANCISCO J Young with use of SBAR Why are they here: Pt admitted to [place] for [facility] health on a 5150 for gravely disabled. Pt has been unable to care for himself. He is unable to verbalize a viable plan for food, clothing, and correction. Pt is responding to internal stimuli. Pt repeatedly comes to the [facility] begging for food with significant weight loss. Pt unable to manage finances and is disheveled and unkempt. Pt has history of schizophrenia and bipolar. Assessment What has happened this shift: Pt was cooperative with medications. He continues to be impulsive, easily frustrated, and loud at times needing frequent limit setting, redirection and verbal de-escalation, he continues on a LOS. Pt frequently complains of feeling hungry, he is on a regular double portioned diet and receives snacks at scheduled snack times. Pt enjoys listening to the radio headphones and singing. He often makes up his own songs to sing. Pt responds well to gentle encouragement and positive reinforcement. He has difficulty with boundaries and understanding unit rules, he has difficulty with being told that he is not allowed or cannot do something he wishes to do. Pt frequently voices that he wants to leave, that it's not fair that he is still here. Pt requested PRN Ativan for agitation at 1033, he was given Ativan 2 mg along with Benadryl 50 mg and Haldol 5 mg per orders with good effect. Per charge entry clerk and PCT report, after lunch pt was hugging a female pt who encourages this behavior. Both patients have been told several times that is against the unit rules for patients to hug each other here. Pt became angry and frustrated at being told he could not do so and became verbally aggressive with some physical posturing. He was angrily walking back to his room escorted by a male PCT and male charge entry clerk when the verbal aggression turned into physical aggression. Pt made an unbalanced swing with his fist towards male staff,(nearly fell over while doing so) which led to pt being taken down to the ground by building performance consultant and PCT. Pt was tearful afterwards and sat on the ground in the hallway crying for awhile and verbalizing how unfair things are and how he doesn't wish to be here. 1:1 and reality orientation provided by this RN reinforcing that hugging other patients is against the unit rules, that sometimes rules are not necessarily fair and neither is life but there are still consequences for breaking them. Explained to pt that hugging friends when not on a mental health unit can be okay but it is not okay here, that physical aggression is not okay. Pt listened but verbally protested and requested that this RN leave him alone. Another male RN not involved in the take down continued with a 1:1 and pt was verbally de-escalated, he stood up and walked to his room. No further interventions were needed. Pt is currently quiet and cooperative. S/I, H/I: Pt denies. A/VH: Pt denies. ADL's: Independent, needs encouragement with personal hygiene. Group attendance: No Were meds taken: Yes Any med S/E: None noted or reported. Mental Status Exam Appearance: Large, tall, overweight, jacobs skinned male with short dark blond hair with a prominent belly dressed in green hospital scrubs and a grissom t-shirt. Eye contact: Good Behavior: Pacing, listening to music on radio headphones, singing, easily frustrated with poor boundaries, has a lumbering gait and poor balance. Speech: Loud, clear Mood: Labile Affect: Labile, varies from animated/elevated to tearful/despondent to irritable/angry/agitated Thought process: Perseverative, reality distortion. Thought Content: Fixates on food and wanting to be discharged. Cognition: A/O X 3, disoriented to situation. Insight: Poor Judgment: Impaired Interventions PRN's used: Ativan 2 mg, Benadryl 50 mg, Haldol 5 mg, nicotine lozenges. Therapeutic interventions: 1:1 assessment, therapeutic communication, active listening, medication administration/education/monitoring, behavior monitoring and intervention; limit setting, redirection, verbal de-escalation, reality orientation, positive reinforcement, Line of sight observation. Restraints/seclusion/emergency medication: Manual restraint/take down after patient took a swing at the Charge nurse. Justification of Continued Inpatient Treatment: Pt is developmentally delayed and gravely disabled. He is a large young man who is easily frustrated and becomes verbally aggressive and physically aggressive at times. He continues to require medication adjustments and monitoring as well as behavior modification in a safe and secure environment to prevent harm to patient or others while awaiting appropriate placement by conservator.
[2020-01-14] MEDS: acetaminophen 325mg tablet PO PRN (17:02)
[2020-01-14 20:00] VITALS: BP 126/62
[2020-01-14] MEDS: traZODone 50mg tablet PO SCH (20:10)
--- NOTE | 2020-01-15 03:40 | NUR ---
Nursing Progress Note: Tank Sun Legal hold: T-Con Client on involuntary status for GD Report received from FRANCISCO J Robertson with use of SBAR. Why are they here: Pt admitted to [place] for Behavioral health on a 5150 for gravely disabled. Pt has been unable to care for himself. He is unable to verbalize a viable plan for food, clothing, and mcfp. Pt is responding to internal stimuli. Pt repeatedly comes to the [facility] begging for food with significant weight loss. Pt unable to manage finances and is disheveled and unkempt. Pt has history of schizophrenia and bipolar. Assessment What has happened this shift: Patient was ambulatory and friendly following shift change. Patient listens to music then retires to his room. Late evening patient is becoming more irritable. Patient ambulates to nursing station and advises this commercial insurance underwriter of his anxiety and building frustration. Patient was given Ativan PO. Patient was medication compliant, patient became less labile following Ativan. Foot care was done, patient retired to sleep. S/I, H/I: Pt denies. A/VH: Pt denies. ADL's: Independent, needs encouragement with personal hygiene. Group attendance: None on shift supervisor rn. Were med's taken: Yes, medication compliant. Any med S/E: None noted or reported. Mental Status Exam Appearance: Tall heavyset male dressed in unit atire. Eye contact: Good. Behavior: Pacing, listening to music on radio headphones, singing, easily frustrated with poor boundaries, has a lumbering gait and poor balance. Speech: Loud, clear. Mood: Friendly now, liable on day shift. Affect: Flat. Thought process: Perseverative, reality distortion. Thought Content: Fixates on food and wanting to be discharged. Cognition: A/O X 3, disoriented to situation. Insight: Poor. Judgment: Impaired/Poor. Interventions PRN's used: Ativan 2 mg, Benadryl 50 mg, nicotine lozenges. Therapeutic interventions: 1:1 assessment, therapeutic communication, active listening, medication administration/education/monitoring, behavior monitoring and intervention; limit setting, redirection, verbal de-escalation, reality orientation, positive reinforcement, Line of sight observation. Justification of Continued Inpatient Treatment: Pt is developmentally delayed and gravely disabled. He is a large young man who is easily frustrated and becomes verbally aggressive and physically aggressive at times. He continues to require medication adjustments and monitoring as well as behavior modification in a safe and secure environment to prevent harm to patient or others while awaiting appropriate placement by conservator.
[2020-01-15 08:00] VITALS: BP 110/74
[2020-01-15] MEDS: mineral oil/petrolatum, white cream 113gm jar TP SCH ×2 (08:17→20:09)
[2020-01-15] MEDS: quetiapine 100mg tablet PO SCH ×3 (08:54→20:09)
[2020-01-15] MEDS: QUEtiapine 25mg tablet PO SCH ×3 (08:54→20:09)
[2020-01-15] MEDS: LORazepam 1 MG tablet PO SCH ×4 (08:55→20:10)
[2020-01-15] MEDS: propranolol 10mg tablet PO SCH ×3 (08:55→20:08)
[2020-01-15] MEDS: divalproex sod 250mg ER (24-hour) tablet PO SCH ×3 (08:55→18:01)
[2020-01-15] MEDS: lithium carbonate 150mg capsule PO SCH ×3 (08:55→20:08)
[2020-01-15] MEDS: NICOTINE POLACRILEX 2 MG LOZENGE BC PRN (11:08)
--- NOTE | 2020-01-15 12:06 | NUR ---
CONSERVATORSHIP EVAL BY PSYCHOLOGIST Assisted Irineo with interview via FaceTime with Psychologist, Zulema Varner, with [facility]. Irineo was quite sedated and drooling throughout the interview. He was irritable and yelled at [facility] at one point. She informed him that he cannot yell at the presiding judge like that and needs to answer questions appropriately. Long Term Care Administrator requested his sitter to join us in the Dr's room after his outburst despite the door being propped open. He told her he wants to stay with an Aunt in [place], however, he has not spoken to her about this. He also mentioned his sister, Daisy, is willing to allow him to live with her. He gave Zulema his sister's number and she indicated [facility] may call her. After the interview, magazine writer asked Irineo for information about his Aunt. He could only give her first name, Hermila, and did not know her last name or phone number. Called Irineo's sister, Daisy Nelson (ph# [phone]). Informed her that [facility] may be calling her regarding if she can offer 3rd republican assistance. She reported she thought she was not able to offer support due to temporary conservatorship. Explained the process and that she can write a letter to the court to offer assistance. Long Term Care Administrator cautioned against having Irineo live with her given that she has a young daughter in the home. She reported she is not concerned about Irineo harming her daughter. She reported their Aunt Hermila is elderly and is unable to take Irineo in. Encouraged her to call [facility] Public Guardian and Mental Health regarding the questions she had that magazine writer was unable to answer. KAROL Ortiz
[2020-01-15 13:00] VITALS: BP 133/57
[2020-01-15] MEDS: LORazepam 1 MG tablet PO PRN ×2 (14:17→22:33)
[2020-01-15] MEDS: diphenhydrAMINE 25mg capsule PO PRN ×2 (14:17→22:32)
[2020-01-15] MEDS: haloperidol 5mg tablet PO PRN ×2 (14:17→21:00)
--- NOTE | 2020-01-15 17:46 | NUR ---
Nursing Progress Note: Legal hold: T-Con Client on involuntary status for GD Report received from Yanni Dumont RN with use of SBAR Why are they here: Pt admitted to [place] for Behavioral health on a 5150 for gravely disabled. Pt has been unable to care for himself. He is unable to verbalize a viable plan for food, clothing, and assisted. Pt is responding to internal stimuli. Pt repeatedly comes to the [place] [facility] begging for food with significant weight loss. Pt unable to manage finances and is disheveled and unkempt. Pt has history of schizophrenia and bipolar. Assessment What has happened this shift: Pt was mostly pleasant and cooperative this shift. He was in a good mood for most of the shift. Pt did have a video conference around 1045 with a psychologist from [facility] during which he did become mildly agitated, used some profanity and did some yelling. He also became upset at not being able to go outside today. He yelled and ranted for awhile about being stuck in here, he wants to go outside. He had some psychomotor agitation and needed limit setting, redirection, and verbal de-escalation. He was given prn Haldol 5 mg, Benadryl 50 mg, and Ativan 2 mg at 1417 with good effect. The rest of the shift he walked in the halls while listening to radio headphones, sang, and socialized with staff and peers. He did need further limit setting and redirection to not touch a female PCT, he had rubbed her shoulder and grabbed playfully at her hair. Pt was compliant. Another RN Jonathan reported to this nurse that Irineo had made a statement to him that if he is put on a conservatorship that he will break a window, jump out of it and kill himself. S/I, H/I: Pt denies though made a statement of suicidal intent if he is placed on a conservatorship. A/VH: Pt denies. ADL's: Independent, needs encouragement with personal hygiene, was cooperative with changing his shirt and having laundry done today. Group attendance: No Were meds taken: Yes Any med S/E: None noted or reported. Mental Status Exam Appearance: Large, tall, overweight, jacobs skinned male with short dark blond hair with a prominent belly dressed in green hospital scrubs and a grissom t-shirt. Eye contact: Good Behavior: Pacing, listening to music on radio headphones, singing, easily frustrated with poor boundaries, has a lumbering gait and poor balance. Speech: Loud, clear Mood: Labile Affect: Labile, varies from animated/elevated to tearful/despondent to irritable/angry/agitated Thought process: Perseverative, reality distortion. Thought Content: Fixates on food, wanting to go outside, and wanting to be discharged. Cognition: A/O X 3, disoriented to situation. Insight: Poor Judgment: Poor Interventions PRN's used: Ativan 2 mg, Benadryl 50 mg, Haldol 5 mg, nicotine lozenges. Therapeutic interventions: 1:1 assessment, therapeutic communication, active listening, medication administration/education/monitoring, behavior monitoring and intervention; limit setting, redirection, verbal de-escalation, reality orientation, positive reinforcement, Line of sight observation. Restraints/seclusion/emergency medication: None Justification of Continued Inpatient Treatment: Pt is developmentally delayed and gravely disabled. He is a large young man who is easily frustrated and becomes verbally aggressive and physically aggressive at times. He continues to require medication adjustments and monitoring as well as behavior modification in a safe and secure environment to prevent harm to patient or others while awaiting appropriate placement by [facility].
[2020-01-15 20:00] VITALS: BP 133/79
[2020-01-15] MEDS: traZODone 50mg tablet PO SCH (20:09)
--- NOTE | 2020-01-16 01:10 | NUR ---
Nursing Progress Note: Tank Sun Legal hold: T-Con Client on involuntary status for GD Report received from FRANCISCO J Robertson with use of SBAR. Why they are here: Pt admitted to [place] for Behavioral health on a 5150 for gravely disabled. Pt has been unable to care for himself. He is unable to verbalize a viable plan for food, clothing, and fci. Pt is responding to internal stimuli. Pt repeatedly comes to the [facility] begging for food with significant weight loss. Pt unable to manage finances and is disheveled and unkempt. Pt has history of schizophrenia and bipolar. Assessment What has happened this shift: Patient was ambulatory and friendly following shift change. Patient assists sitter in passing win. Later in the evening patient is becoming more irritable stating, I cant sleep. Patient ambulated to nursing station stating, I need something to help me sleep. Patient was given Haldol PO. Patient was medication compliant. Walked around multiple laps with sitter then went to bed. S/I, H/I: Pt denies. A/VH: Pt denies. ADL's: Independent, needs encouragement with personal hygiene. Group attendance: None on layout operator. Were med's taken: Yes, medication compliant. Any med S/E: None noted or reported. Mental Status Exam Appearance: Tall heavyset male dressed in his own clothes. Eye contact: Good. Behavior: Pacing, listening to music on radio headphones, singing, easily frustrated with poor boundaries, has a lumbering gait and poor balance. Speech: Loud, clear. Mood: Friendly now, labile. Affect: Flat. Thought process: Perseverative, reality distortion. Thought Content: Fixates on food, drinks, and wanting to be discharged. Cognition: A/O X 3, disoriented to situation. Insight: Poor. Judgment: Impaired/Poor. Interventions PRN's used: Haldol Therapeutic interventions: 1:1 assessment, therapeutic communication, active listening, medication administration/education/monitoring, behavior monitoring and intervention; limit setting, redirection, verbal de-escalation, reality orientation, positive reinforcement, Line of sight observation. Justification of Continued Inpatient Treatment: Pt is developmentally delayed and gravely disabled. He is a large young man who is easily frustrated and becomes verbally aggressive and physically aggressive at times. He continues to require medication adjustments and monitoring as well as behavior modification in a safe and secure environment to prevent harm to patient or others while awaiting appropriate placement by conservator.
[2020-01-16] MEDS: propranolol 10mg tablet PO SCH ×3 (08:00→20:08)
[2020-01-16] MEDS: quetiapine 100mg tablet PO SCH ×3 (08:24→20:07)
[2020-01-16] MEDS: lithium carbonate 150mg capsule PO SCH ×3 (08:25→20:07)
[2020-01-16] MEDS: QUEtiapine 25mg tablet PO SCH ×3 (08:25→20:08)
[2020-01-16] MEDS: LORazepam 1 MG tablet PO SCH ×4 (08:25→20:12)
[2020-01-16] MEDS: divalproex sod 250mg ER (24-hour) tablet PO SCH ×3 (08:26→17:04)
[2020-01-16 08:57] VITALS: BP 93/54
--- NOTE | 2020-01-16 14:20 | NUR ---
Nursing Progress Note: Tank Sun Legal hold: T-Con Client on involuntary status for GD Report received from Yanni Kaplan with use of SBAR. Why they are here: Pt admitted to [place] for Behavioral health on a 5150 for gravely disabled. Pt has been unable to care for himself. He is unable to verbalize a viable plan for food, clothing, and senior care. Pt is responding to internal stimuli. Pt repeatedly comes to the [place] [facility] begging for food with significant weight loss. Pt unable to manage finances and is disheveled and unkempt. Pt has history of schizophrenia and bipolar. Assessment What has happened this shift: Pt has slept most of the shift. He wakes up to eat his meals and is med compliant. He is labile and tends to raise his voice at times. He likes to sing as he walks around the unit. Sitter at bedside for safety. Pt is unpredictable. Likes to sleep. S/I, H/I: Pt denies. A/VH: Pt denies. ADL's: Independent. Group attendance: None on weekend shift. Were med's taken: Yes, medication compliant. Any med S/E: None noted or reported. Mental Status Exam Appearance: heavy set male wearing green scrub pants and street shirt. Eye contact: Good. Behavior: Labile. Likes to sing. Pacing around hallways. Speech: Loud, clear. Mood: Unpredictable. Affect: Flat. Thought process: Disorganized. Thought Content: Has spent most of the shift sleeping but does wake to eat. Cognition: A/O X 3, disoriented to situation. Insight: Poor insight Judgment: deteriorated Interventions PRN's used: None Therapeutic interventions: 1:1 assessment, therapeutic communication, active listening, medication administration/education/monitoring, behavior monitoring and intervention; limit setting, redirection, verbal de-escalation, reality orientation, positive reinforcement, Line of sight observation. Justification of Continued Inpatient Treatment: Pt is developmentally delayed and gravely disabled. He is a large young man who is easily frustrated and becomes verbally aggressive and physically aggressive at times. He continues to require medication adjustments and monitoring as well as behavior modification in a safe and secure environment to prevent harm to patient or others while awaiting appropriate placement by conservator.
[2020-01-16] MEDS: mineral oil/petrolatum, white cream 113gm jar TP SCH ×2 (15:42→20:00)
[2020-01-16] MEDS: NICOTINE POLACRILEX 2 MG LOZENGE BC PRN ×2 (18:09→20:23)
[2020-01-16 20:00] VITALS: BP 144/89
[2020-01-16] MEDS: traZODone 50mg tablet PO SCH (20:08)
[2020-01-16] MEDS: diphenhydrAMINE 25mg capsule PO PRN (21:58)
[2020-01-16] MEDS: haloperidol 5mg tablet PO PRN (21:58)
--- NOTE | 2020-01-17 00:01 | NUR ---
camelia Progress Note: Tank Sun Legal hold: T-Con Client on involuntary status for GD Report received from FRANCISCO J Robertson with use of SBAR. Why are they here: Pt admitted to [place] for Behavioral health on a 5150 for gravely disabled. Pt has been unable to care for himself. He is unable to verbalize a viable plan for food, clothing, and assisted. Pt is responding to internal stimuli. Pt repeatedly comes to the [facility] [facility] begging for food with significant weight loss. Pt unable to manage finances and is disheveled and unkempt. Pt has history of schizophrenia and bipolar. Assessment What has happened this shift: Patient is ambulating on occasion following shift change. Patient looks somber. He eats his dinner and is medication compliant. Patient starts to become irritable, he approaches this underwriter solicitation director and requests medication for same. Patient attempted sleep but awoke agitated, he requests medications and was given PO Benadryl and Haldol with good effect. Patient is reminded that he is in a safe place. He exhibits some understanding. Patient has a sitter and is under close observation. He is medication compliant and cooperative. S/I, H/I: Pt denies. A/VH: Pt denies. ADL's: Independent, needs encouragement with personal hygiene. Group attendance: None on night shift supervisor. Were med's taken: Yes, medication compliant. Any med S/E: None noted or reported. Mental Status Exam Appearance: Tall heavyset male dressed in unit attire. Eye contact: Good. Behavior: Speech: Loud, clear. Mood: Friendly now, liable on day shift. Affect: Flat. Thought process: Perseverative, reality distortion. Thought Content: feeling irritable, noise is bothering him. Cognition: A/O X 3, disoriented to situation. Insight: Poor. Judgment: Impaired/Poor. Interventions PRN's used: Nicotine, Haldol, Benadryl. Therapeutic interventions: 1:1 assessment, therapeutic communication, active listening, medication administration/education/monitoring, behavior monitoring and intervention; limit setting, redirection, verbal de-escalation, reality orientation, positive reinforcement, Line of sight observation. Justification of Continued Inpatient Treatment: Pt is developmentally delayed and gravely disabled. He is a large young man who is easily frustrated and becomes verbally aggressive and physically aggressive at times. He continues to require medication adjustments and monitoring as well as behavior modification in a safe and secure environment to prevent harm to patient or others while awaiting appropriate placement by conservator.
[2020-01-17] MEDS: mineral oil/petrolatum, white cream 113gm jar TP SCH ×2 (08:00→20:00)
[2020-01-17 08:50] VITALS: BP 136/68
[2020-01-17] MEDS: LORazepam 1 MG tablet PO SCH ×4 (09:01→20:00)
[2020-01-17] MEDS: propranolol 10mg tablet PO SCH ×3 (09:01→20:00)
[2020-01-17] MEDS: lithium carbonate 150mg capsule PO SCH ×3 (09:01→20:00)
[2020-01-17] MEDS: divalproex sod 250mg ER (24-hour) tablet PO SCH ×3 (09:01→17:09)
[2020-01-17] MEDS: quetiapine 100mg tablet PO SCH ×3 (09:02→20:00)
[2020-01-17] MEDS: QUEtiapine 25mg tablet PO SCH ×3 (09:02→20:00)
[2020-01-17] MEDS: NICOTINE POLACRILEX 2 MG LOZENGE BC PRN ×3 (13:54→18:32)
[2020-01-17] MEDS: acetaminophen 325mg tablet PO PRN (17:11)
--- NOTE | 2020-01-17 17:38 | NUR ---
Nursing Progress Note Legal hold: T-Con Client on involuntary status for GD Report received from RN with use of SBAR Why are they here: Pt admitted to [place] for [facility] health on a 5150 for gravely disabled. Pt has been unable to care for himself. He is unable to verbalize a viable plan for food, clothing, and fci. Pt is responding to internal stimuli. Pt repeatedly comes to the [facility] [facility] begging for food with significant weight loss.. Pt unable to manage finances and is disheveled and unkempt. Pt has history of schizophrenia and bipolar. Assessment What has happened this shift: Received Pt on LOS observation and sleeping in bed w/o distress, with line of sight staff sitting right at door, at change of shift. Patient woke for vitals and returned to sleep. He slept late and ate breakfast in his room. Pt took AM meds w/o issue. After morning snack, pt ruminated and asked for snacks after already eating and became agitated yelling loudly I hate this fucking place. I want to go home. Its not fair. Pt continued to yell a bit and hit boyd and slammed his door. He was able to calm, but remained elevated. Pt given music headphones which he listened to until lunch and walked the halls singing. Pt able to socialize and interact with others a lot today and also became agitated when limits or responses to his behavior were negative. S/I, H/I: Denies A/VH: Denies Sleep: Pt napped in AM ADL's: Requires direction from staff Group attendance: No Were meds taken: Yes Any med S/E: None Mental Status Exam Appearance: Casual in street clothes Eye contact: Fair, intense gaze when irritated Behavior: Cooperative at times, agitated, easily angered Speech: Varies between soft and aggressively shouting Mood: Labile, reactive Affect: Labile Thought process: Poverty of thought Thought Content: Preoccupation with food and snacks and drinks Cognition: A&O X3 Insight: Poor Judgment: Poor Interventions PRN's used: Kenny. Cookie X2, Tylenol Therapeutic interventions: Introduced self and attempted to establish rapport, ensured contract for safety, maintained a safe and therapeutic environment, provided clear and simple instructions, attempted to orient to reality, monitored behaviors and need for intervention, provided redirection as needed, and maintained close observation per safety precautions. Restraints/seclusion/emergency medication: N/A Justification of Continued Inpatient Treatment: Pt. continues to requires a safe and supportive environment, medication adjustments, behavioral management, while awaiting placement by conservator.
[2020-01-17] MEDS: tizanidine 4mg tablet PO PRN (18:32)
[2020-01-17] MEDS: traZODone 50mg tablet PO SCH (19:50)
[2020-01-17 20:00] VITALS: BP 125/77
--- NOTE | 2020-01-18 03:09 | NUR ---
Nursing Progress Note: Tank Legal hold: T-Con Client on involuntary status for GD Report received from FRANCISCO J Robertson with use of SBAR. Why are they here: Pt admitted to [facility] on a 5150 for gravely disabled. Pt has been unable to care for himself. He is unable to verbalize a viable plan for food, clothing, and chcf. Pt is responding to internal stimuli. Pt repeatedly comes to the [facility] begging for food with significant weight loss. Pt unable to manage finances and is disheveled and unkempt. Pt has history of schizophrenia and bipolar. Assessment What has happened this shift: Patient pacing the halls with sitter and rapping during shift change. He is in a jovial mood, and responding well to redirection when asked to quiet his voice. Pt is joking with staff. Pt requesting snacks incessantly but opted to listen to headphones when he was told to wait until 1999. Pt helped announce snack time this evening. Pt had one outburst where he began yelling due to spilling some coffee on himself but was easily consoled. Pt is medication compliant and went to sleep soon after administration. RN put on foot cream and tucked patient in with warm blankets. S/I, H/I: Pt denies. A/VH: Pt denies. ADL's: Independent, needs encouragement with personal hygiene. Group attendance: None on income tax consultant. Were med's taken: Yes, medication compliant. Any med S/E: None noted or reported. Mental Status Exam Appearance: Clean, dressed appropriately in personal clothing. Eye contact: Good. Behavior: pacing, listening to headphones, dancing, rapping Speech: Loud, clear. Mood: Labile during days, jovial this evening. Affect: Blunted Thought process: Perseverative Thought Content: wanting snack Cognition: A/O X 3, disoriented to situation. Insight: Poor. Judgment: Impaired/Poor. Interventions PRN's used: Nicotine lozenge, Zanaflex Therapeutic interventions: 1:1 assessment, therapeutic communication, active listening, medication administration/education/monitoring, behavior monitoring and intervention; limit setting, redirection, verbal de-escalation, reality orientation, positive reinforcement, Line of sight observation. Justification of Continued Inpatient Treatment: Pt is developmentally delayed and gravely disabled. He is a large young man who is easily frustrated and becomes verbally aggressive and physically aggressive at times. He continues to require medication adjustments and monitoring as well as behavior modification in a safe and secure environment to prevent harm to patient or others while awaiting appropriate placement by conservator.
[2020-01-18] MEDS: quetiapine 100mg tablet PO SCH ×3 (08:38→20:08)
[2020-01-18] MEDS: QUEtiapine 25mg tablet PO SCH ×3 (08:38→20:08)
[2020-01-18] MEDS: LORazepam 1 MG tablet PO SCH ×4 (08:39→20:09)
[2020-01-18] MEDS: propranolol 10mg tablet PO SCH ×3 (08:39→20:08)
[2020-01-18] MEDS: lithium carbonate 150mg capsule PO SCH ×3 (08:39→20:07)
[2020-01-18] MEDS: divalproex sod 250mg ER (24-hour) tablet PO SCH ×3 (08:39→17:37)
[2020-01-18] MEDS: mineral oil/petrolatum, white cream 113gm jar TP SCH ×2 (11:00→20:09)
[2020-01-18] MEDS: NICOTINE POLACRILEX 2 MG LOZENGE BC PRN ×2 (12:23→17:36)
--- NOTE | 2020-01-18 13:44 | NUR ---
Nursing Progress Note Legal hold: T-Con Client on involuntary status for GD Report received from RN with use of SBAR Why are they here: Pt admitted to [facility] for [facility] on a 5150 for gravely disabled. Pt has been unable to care for himself. He is unable to verbalize a viable plan for food, clothing, and long term. Pt is responding to internal stimuli. Pt repeatedly comes to the [facility] begging for food with significant weight loss.. Pt unable to manage finances and is disheveled and unkempt. Pt has history of schizophrenia and bipolar. Assessment What has happened this shift: Received pt asleep in bed without signs of distress. Pt remains on LOS for unpredictable behavior. Pt pleasant most of the morning with only one small blowup re: wanting a snack within 5 minutes of finishing his breakfast. Pt also needing redirection for antagonizing another pt. Pt denies a/v hallucinations and denies hearing voices. Pt does endorse depression because he wants to get out of here Pt showing slight increase in patience as he was able to wait for lunch without having a tantrum. S/I, H/I: Denies A/VH: Denies Sleep: Pt napped in AM ADL's: Requires direction from staff Group attendance: No Were meds taken: Yes Any med S/E: None Mental Status Exam Appearance: Casual in street clothes Eye contact: Fair, intense gaze when irritated Behavior: Cooperative at times, agitated, easily angered Speech: Varies between soft and aggressively shouting Mood: Labile, reactive Affect: Labile Thought process: Poverty of thought Thought Content: Preoccupation with food and snacks and drinks Cognition: A&O X3 Insight: Poor Judgment: Poor Interventions PRN's used: Kenny. Cookie Therapeutic interventions: Introduced self and attempted to establish rapport, ensured contract for safety, maintained a safe and therapeutic environment, provided clear and simple instructions, attempted to orient to reality, monitored behaviors and need for intervention, provided redirection as needed, and maintained close observation per safety precautions. Restraints/seclusion/emergency medication: N/A Justification of Continued Inpatient Treatment: Pt. continues to requires a safe and supportive environment, medication adjustments, behavioral management, while awaiting placement by conservator.
[2020-01-18] MEDS: acetaminophen 325mg tablet PO PRN (14:01)
[2020-01-18] MEDS: traZODone 50mg tablet PO SCH ×3 (20:07→22:13)
[2020-01-18 20:27] VITALS: BP 134/71
[2020-01-18] MEDS: diphenhydrAMINE 25mg capsule PO PRN (20:55)
[2020-01-18] MEDS: haloperidol 5mg tablet PO PRN (20:55)
[2020-01-18] MEDS: LORazepam 1 MG tablet PO PRN (22:13)
--- NOTE | 2020-01-19 03:40 | NUR ---
Nursing Progress Note: Tank Legal hold: T-Con Client on involuntary status for GD Report received from FRANCISCO J Robertson with use of SBAR. Why are they here: Pt admitted to [facility] for [facility] on a 5150 for gravely disabled. Pt has been unable to care for himself. He is unable to verbalize a viable plan for food, clothing, and fpc. Pt is responding to internal stimuli. Pt repeatedly comes to the [facility] begging for food with significant weight loss. Pt unable to manage finances and is disheveled and unkempt. Pt has history of schizophrenia and bipolar. Assessment What has happened this shift: Pt in a good mood this evening, accepting redirection well when inquiring about snacks before snack time and assisting with small tasks on the unit. Pt self-regulating emotions through pacing, rapping, and headphones stating It is just too loud in here so I will do this! Pt excited to share his behavior earlier in the day when a fellow patient was disgruntled towards him and I decided to walk away. I went back to my room. I did it twice! This RN congratulated pt for his mature response, and improvement since he was admitted. Pt is medication compliant and went to sleep soon after administration. RN put on foot cream and tucked patient in with warm blankets. Pt approached RN 45 minutes later to state I feel like I am going to hurt someone. I just want to hit someone, the voices are telling me to do this but I dont want to, is there something to stop it? I feel angry. Pt given Haldol, Benadryl and repeat trazodone dose to good effect. S/I, H/I: Pt denies. A/VH: Pt denies. ADL's: Independent, needs encouragement with personal hygiene. Group attendance: N/A Were med's taken: Yes, medication compliant. Any med S/E: None noted or reported. Mental Status Exam Appearance: Clean, dressed appropriately in personal clothing. Eye contact: Good. Behavior: pacing, listening to headphones, dancing, rapping, redirectable, helping with small tasks on unit Speech: Loud, clear, mumbled at times Mood: Jovial Affect: Blunted with frequent brightening Thought process: Perseverative Thought Content: wanting snack, reflecting on positive behavior Cognition: A/O X 3, disoriented to situation. Insight: Poor Judgment: Impaired/Poor Interventions PRN's used: Nicotine Lozenge, Trazodone repeat dose, Benadryl, Haldol Therapeutic interventions: 1:1 assessment, therapeutic communication, active listening, medication administration/education/monitoring, behavior monitoring and intervention; limit setting, redirection, verbal de-escalation, reality orientation, positive reinforcement, Line of sight observation. Justification of Continued Inpatient Treatment: Pt is developmentally delayed and gravely disabled. He is a large young man who is easily frustrated and becomes verbally aggressive and physically aggressive at times. He continues to require medication adjustments and monitoring as well as behavior modification in a safe and secure environment to prevent harm to patient or others while awaiting appropriate placement by conservator.
[2020-01-19] MEDS: mineral oil/petrolatum, white cream 113gm jar TP SCH ×2 (07:36→20:08)
[2020-01-19 08:00] VITALS: BP 111/55
[2020-01-19] MEDS: divalproex sod 250mg ER (24-hour) tablet PO SCH ×3 (09:21→17:15)
[2020-01-19] MEDS: quetiapine 100mg tablet PO SCH ×3 (09:21→20:02)
[2020-01-19] MEDS: propranolol 10mg tablet PO SCH ×3 (09:22→20:03)
[2020-01-19] MEDS: LORazepam 1 MG tablet PO SCH ×4 (09:22→20:03)
[2020-01-19] MEDS: lithium carbonate 150mg capsule PO SCH ×3 (09:22→20:03)
[2020-01-19] MEDS: QUEtiapine 25mg tablet PO SCH ×3 (09:22→20:02)
--- NOTE | 2020-01-19 10:54 | NUR ---
Reassessment: Pt continues with average 75-100% PO intake of meals with double protein TID meeting nutrient needs. LBM 01/17. No nutrition intervention warranted at this time. Will continue to follow. Recommendations: 1) Continue regular diet 2) Double eggs q breakfast, double meat BIDLD per diet order 3) Bowel care PRN 4) Scaled weights per rx Addendum: 01/19/20 at [address] Amended: Links added.
[2020-01-19] MEDS: LORazepam 1 MG tablet PO PRN (11:53)
[2020-01-19] MEDS: diphenhydrAMINE 25mg capsule PO PRN (11:53)
[2020-01-19] MEDS: haloperidol 5mg tablet PO PRN (11:53)
[2020-01-19 12:32] VITALS: BP 124/72
[2020-01-19] MEDS: NICOTINE POLACRILEX 2 MG LOZENGE BC PRN ×4 (12:43→19:19)
[2020-01-19] MEDS: busPIRone 5mg tablet PO SCH ×2 (13:35→20:03)
--- NOTE | 2020-01-19 14:49 | NUR ---
Nursing Progress Note Legal hold: T-Con Client on involuntary status for GD Report received from Hannah MARX with use of SBAR Why are they here: Pt admitted to [facility] for [facility] health on a 5150 for gravely disabled. Pt has been unable to care for himself. He is unable to verbalize a viable plan for food, clothing, and detention. Pt is responding to internal stimuli. Pt repeatedly comes to the [facility] begging for food with significant weight loss.. Pt unable to manage finances and is disheveled and unkempt. Pt has history of schizophrenia and bipolar. Assessment What has happened this shift: Pt slept in late this morning. He woke up at 0920, ate breakfast and took his medications. Pt observed eating butter straight out of the tub with a spoon. Pt received a snack of an [employer] PB&J sandwich just before 1100. He asked for another snack at around 1145, was told that he had already had his morning snack and would have to wait for more food until lunchtime. Pt angrily yelled loudly, "that's bullshit!" Pt stomped down the hallway continuing to verbalize his displeasure. He stared into the nurses' station and punched the window. Limit setting, redirection, and verbal de-escalation utilized. Pt returned to his room and was given PRN PO Ativan 2 mg, Benadryl 50 mg, and Haldol 5 mg at 1153. Pt's mood improved and he was observed laughing, smiling, and joking with staff and peers. He needed reminders not to give female patients hugs. Pt continues on a LOS. Pt requested prn Nicotine lozenges at 1243 and 1447. Pt has a new order for Buspar 5 mg TID, given the first dose after lunch. S/I, H/I: Pt denies A/VH: Pt denies Sleep: Pt slept 6.5 hours per noc shift report, he did not awaken until 0920 this morning, so slept greater than 10 hours total. ADL's: Independent with prompting from staff. Group attendance: Yes, attended this first half of afternoon group. Were meds taken: Yes Any med S/E: None noted or reported. Mental Status Exam Appearance: Very large, tall short haired young man dressed in shorts and a tank top with his belly hanging out. Eye contact: Good Behavior: Mostly cooperative with short periods of agitation with verbal aggression, one episode of physical aggression, punched a window, likes to listen to radio headphones and sing. Speech: Clear, audible, loud. Mood: Labile Affect: Labile Thought process: Perseverative Thought Content: Perseverates on snacks. Cognition: A&O x 3, disoriented to situation. Insight: Poor Judgment: Poor Interventions PRN's used: Ativan 2 mg, Haldol 5 mg, Benadryl 50 mg PO at 1153. Therapeutic interventions: 1:1 assessment, therapeutic communication, active listening, medication administration/education/monitoring. Behavior monitoring and intervention as needed; limit setting, redirection, verbal de-escalation, continues on Line of Sight level of observation. Restraints/seclusion/emergency medication: N/A Justification of Continued Inpatient Treatment: Pt. continues to requires a safe and supportive environment, medication adjustments, behavioral management, while awaiting placement by conservator.
[2020-01-19] MEDS: acetaminophen 325mg tablet PO PRN (16:38)
[2020-01-19 20:00] VITALS: BP 117/75
[2020-01-19] MEDS: traZODone 50mg tablet PO SCH ×2 (20:03→21:27)
--- NOTE | 2020-01-20 02:59 | NUR ---
Nursing Progress Note: Tank Legal hold: T-Con Client on involuntary status for GD Report received from FRANCISCO J Robertson with use of SBAR. Why are they here: Pt admitted to [facility] for [facility] on a 5150 for gravely disabled. Pt has been unable to care for himself. He is unable to verbalize a viable plan for food, clothing, and detention. Pt is responding to internal stimuli. Pt repeatedly comes to the [facility] begging for food with significant weight loss. Pt unable to manage finances and is disheveled and unkempt. Pt has history of schizophrenia and bipolar. Assessment What has happened this shift: Pt in a good mood this evening, observed to be pacing, rapping, and using headphones. Pt is also approaching this RN when he begins to feel agitated and redirects well. Pt is medication compliant and went to sleep soon after administration. RN put on foot cream and tucked patient in with warm blankets. S/I, H/I: Pt denies. A/VH: Pt denies. ADL's: Independent, needs encouragement with personal hygiene. Group attendance: N/A Were med's taken: Yes, medication compliant. Any med S/E: None noted or reported. Mental Status Exam Appearance: Clean, dressed appropriately in personal clothing. Eye contact: Good. Behavior: pacing, listening to headphones, rapping Speech: Loud, clear, mumbled at times Mood: Happy Affect: Blunted with frequent brightening Thought process: Perseverative Thought Content: wanting snacks, rapping Cognition: A/O X 3, disoriented to situation. Insight: Poor Judgment: Impaired/Poor Interventions PRN's used: Nicotine Lozenge, Trazodone repeat dose Therapeutic interventions: 1:1 assessment, therapeutic communication, active listening, medication administration/education/monitoring, behavior monitoring and intervention; limit setting, redirection, verbal de-escalation, reality orientation, positive reinforcement, Line of sight observation. Justification of Continued Inpatient Treatment: Pt is developmentally delayed and gravely disabled. He is a large young man who is easily frustrated and becomes verbally aggressive and physically aggressive at times. He continues to require medication adjustments and monitoring as well as behavior modification in a safe and secure environment to prevent harm to patient or others while awaiting appropriate placement by conservator.
[2020-01-20] MEDS: mineral oil/petrolatum, white cream 113gm jar TP SCH ×2 (07:50→20:00)
[2020-01-20 08:00] VITALS: BP 140/89
[2020-01-20] MEDS: quetiapine 100mg tablet PO SCH ×3 (08:06→20:00)
[2020-01-20] MEDS: QUEtiapine 25mg tablet PO SCH ×3 (08:06→20:00)
[2020-01-20] MEDS: LORazepam 1 MG tablet PO SCH ×4 (08:06→20:01)
[2020-01-20] MEDS: lithium carbonate 150mg capsule PO SCH ×3 (08:07→20:00)
[2020-01-20] MEDS: divalproex sod 250mg ER (24-hour) tablet PO SCH ×3 (08:07→17:06)
[2020-01-20] MEDS: propranolol 10mg tablet PO SCH ×3 (08:07→20:01)
[2020-01-20] MEDS: busPIRone 5mg tablet PO SCH ×3 (08:07→20:01)
[2020-01-20 12:05] VITALS: BP 147/85
[2020-01-20] MEDS: NICOTINE POLACRILEX 2 MG LOZENGE BC PRN ×2 (12:07→17:30)
[2020-01-20] MEDS: acetaminophen 325mg tablet PO PRN (12:07)
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
[2020-01-20] MEDS: benztropine 1mg tablet PO PRN (14:13)
[2020-01-20] MEDS: tizanidine 4mg tablet PO PRN (14:13)
[2020-01-20] MEDS: diphenhydrAMINE 25mg capsule PO PRN (17:43)
[2020-01-20] MEDS: haloperidol 5mg tablet PO PRN (17:43)
[2020-01-20] MEDS: LORazepam 1 MG tablet PO PRN (17:43)
[2020-01-20 20:08] VITALS: BP 130/69
--- NOTE | 2020-01-20 22:25 | NUR ---
Nursing Progress Note: [facility] Legal hold: T-Con Client on involuntary status for GD Report received from FRANCISCO J Ferro with use of SBAR Why are they here: Pt admitted to [facility] [facility] for [facility] health on a 5150 for gravely disabled. Pt has been unable to care for himself. He is unable to verbalize a viable plan for food, clothing, and group home. Pt is responding to internal stimuli. Pt repeatedly comes to the [facility] begging for food with significant weight loss. Pt unable to manage finances and is disheveled and unkempt. Pt has history of schizophrenia and bipolar. Assessment What has happened this shift: Pt was seen walking the halls, singing periodically, and socializing with staff and peers. Pt did not have any behavior outbursts during the evening shift. Pt was cooperative with staff and all assessments. Pt attended snack with others and was seen interacting appropriately. Pt accepted hs meds without issue and went to bed. S/I, H/I: Denies A/VH: Denies Sleep: See sleep assessment ADL's: Requires direction from staff Group attendance: N/A Were meds taken: Yes Any med S/E: None Mental Status Exam Appearance: unkempt, dirty clothes Eye contact: Fair Behavior: Cooperative but impulsive Speech: Soft, slurred Mood: Labile Affect: Blunted Thought process: Poverty of thought Thought Content: wanting snacks Cognition: A&O X3 Insight: Poor Judgment: Poor Interventions PRN's used: Trazodone 100mg Therapeutic interventions: Introduced self and attempted to establish rapport, ensured contract for safety, maintained a safe and therapeutic environment, provided clear and simple instructions, attempted to orient to reality, monitored behaviors and need for intervention, provided redirection as needed, and maintained close observation per safety precautions. Restraints/seclusion/emergency medication: N/A Justification of Continued Inpatient Treatment: Pt. continues to require a safe and supportive environment, medication adjustments, behavioral management, while awaiting placement by conservator.
[2020-01-21] MEDS: mineral oil/petrolatum, white cream 113gm jar TP SCH ×2 (07:45→20:00)
[2020-01-21 08:00] VITALS: BP_SYST 104; BP_DIAS 50; BP_DIAS 58
[2020-01-21] MEDS: lithium carbonate 150mg capsule PO SCH ×3 (08:11→20:00)
[2020-01-21] MEDS: LORazepam 1 MG tablet PO SCH ×4 (08:12→20:00)
[2020-01-21] MEDS: busPIRone 5mg tablet PO SCH ×3 (08:12→20:00)
[2020-01-21] MEDS: QUEtiapine 25mg tablet PO SCH ×3 (08:12→20:00)
[2020-01-21] MEDS: quetiapine 100mg tablet PO SCH ×3 (08:12→20:00)
[2020-01-21] MEDS: divalproex sod 250mg ER (24-hour) tablet PO SCH ×3 (08:12→17:16)
[2020-01-21] MEDS: propranolol 10mg tablet PO SCH ×3 (08:12→20:01)
[2020-01-21] MEDS: NICOTINE POLACRILEX 2 MG LOZENGE BC PRN ×3 (11:52→23:41)
[2020-01-21 12:20] VITALS: BP 120/77
[2020-01-21] MEDS: acetaminophen 325mg tablet PO PRN ×2 (12:23→19:59)
[2020-01-21] MEDS: benztropine 1mg tablet PO PRN (13:38)
--- NOTE | 2020-01-21 13:48 | NUR ---
Nursing Progress Note Legal hold: T-Con Client on involuntary status for GD Report received from Hannah MARX with use of SBAR Why are they here: Pt admitted to [place] for [facility] health on a 5150 for gravely disabled. Pt has been unable to care for himself. He is unable to verbalize a viable plan for food, clothing, and mcfp. Pt is responding to internal stimuli. Pt repeatedly comes to the [facility] begging for food with significant weight loss.. Pt unable to manage finances and is disheveled and unkempt. Pt has history of schizophrenia and bipolar. Assessment What has happened this shift: Pt ate 100% of his breakfast, pt was pleasant and cooperative with morning medications. Pt has been in a good mood, smiling, laughing, and singing. Pt socializes and jokes with staff and peers. He gets a little loud at times but has been easily redirectable. Pt requested a nicotine lozenge at 1152. Pt c/o bilateral leg pain 6/10 at 1223 and was given PRN Tylenol 650 mg with good effect. Overheard pt fondly describing tig welder salads and other salads and wishing he could eat more of them. Put in a dietary request to send a tig welder or chicken Caesar salad with lunch. Pt approached this RN after lunch, called me Kavitha instead of Dev. Joked with pt that he had forgotten my name. Pt smiled, looked at my name tag and corrected himself. Pt stated, "I have a back problem." Asked pt what he meant by that, was it spasming or aching. Pt arched his back in a hyperextended fashion to demonstrate that "it was doing this." Pt seemed to be describing some muscle rigidity. Medicated with PRN Cogentin 0.5 mg at 1138. Pt went to lie down for a nap. Instructed him to tell this RN if his back was still bothering him when he woke up. S/I, H/I: Pt denies A/VH: Pt denies Sleep: Pt slept 7.75 hours per noc shift report ADL's: Independent with prompting from staff. Group attendance: No Were meds taken: Yes Any med S/E: Pt c/o bilateral leg pain and muscle rigidity/arching of his back. PRN Cogentin administered. Mental Status Exam Appearance: Very large, tall young man with short dark hair dressed in red shorts and a [employer] t-shirt, disheveled. Eye contact: Good Behavior: Pleasant, cooperative, easily redirectable, socializes with staff and peers. Speech: Clear, audible Mood: Good Affect: Friendly Thought process: Linear Thought Content: Fixates on food and being discharged. Cognition: A&O x 3, disoriented to situation. Insight: Poor Judgment: Poor Interventions PRN's used: Tylenol 650 mg, nicotine lozenge, Cogentin 0.5 mg. Therapeutic interventions: 1:1 assessment, therapeutic communication, active listening, medication administration/education/monitoring. Behavior monitoring and intervention as needed; limit setting, redirection, positive reinforcement, continues on Line of Sight level of observation. Restraints/seclusion/emergency medication: N/A Justification of Continued Inpatient Treatment: Pt. continues to requires a safe and supportive environment, medication adjustments, behavioral management, while awaiting placement by conservator.
--- NOTE | 2020-01-21 14:31 | NUR ---
CM/DCP Presenting Issues: Pt requesting SS support to see if his sister can offer third green party assistance for him as pt does not want to be conserved. [facility] informed SS that their pending sale to [facility] may w/draw petition to conserve pt. [facility], [facility] will need to come & pick pt up that day as there would no longer be any reasons to keep pt here. Interventions: SS had t/c w/pt's sister, per t/c she is not able to provide third green party assistance for pt at this time. SS suggested that she contact [facility]'s [facility] and let them know that and ask them about referring pt to [facility]. Plan: SS will continue to engage [facility] & PG in dcp activities. Sheridan Obrien LCSW Addendum: 01/21/20 at 1448 by Sheridan DORADO Amended: Links added.
[2020-01-21 19:00] VITALS: BP 159/100
[2020-01-21] MEDS: traZODone 50mg tablet PO SCH (19:27)
[2020-01-21] MEDS: diphenhydrAMINE 25mg capsule PO PRN (21:13)
[2020-01-21] MEDS: tizanidine 4mg tablet PO PRN (22:40)
[2020-01-21] MEDS: LORazepam 1 MG tablet PO PRN (23:37)
[2020-01-21] MEDS: haloperidol 5mg tablet PO PRN (23:37)
--- NOTE | 2020-01-22 00:08 | NUR ---
Nursing Progress Note: [facility] Legal hold: T-Con Client on involuntary status for GD Report received from FRANCISCO J Ferro with use of SBAR Why are they here: Pt admitted to [place] for Behavioral health on a 5150 for gravely disabled. Pt has been unable to care for himself. He is unable to verbalize a viable plan for food, clothing, and long-term. Pt is responding to internal stimuli. Pt repeatedly comes to the [facility] begging for food with significant weight loss. Pt unable to manage finances and is disheveled and unkempt. Pt has history of schizophrenia and bipolar. Assessment What has happened this shift: Pt was active on the unit all evening, socializing and singing/rapping. Pt was cooperative for 1;1 and all assessments. Pt did have a conversation with his sister which made him visibly upset and angry. Pt was able to calm himself down without screaming or having any outbursts though. Pt had a difficult time getting to sleep and spent several hours walking the halls and sitting in his room. Pt became agitated at one point and was screaming in the halls, complaining about "being stuck here." Pt given benadryl, ativan, haldol and had a book read to him by [id number] to help him relax. S/I, H/I: Denies A/VH: Denies Sleep: See sleep assessment ADL's: Requires direction from staff Group attendance: N/A Were meds taken: Yes Any med S/E: None Mental Status Exam Appearance: unkempt, dirty clothes Eye contact: Fair Behavior: Cooperative but impulsive Speech: Soft, slurred Mood: Labile Affect: Blunted Thought process: Poverty of thought Thought Content: restlessness Cognition: A&O X3 Insight: Poor Judgment: Poor Interventions PRN's used: Trazodone 100mg Therapeutic interventions: Introduced self and attempted to establish rapport, ensured contract for safety, maintained a safe and therapeutic environment, provided clear and simple instructions, attempted to orient to reality, monitored behaviors and need for intervention, provided redirection as needed, and maintained close observation per safety precautions. Restraints/seclusion/emergency medication: N/A Justification of Continued Inpatient Treatment: Pt. continues to require a safe and supportive environment, medication adjustments, behavioral management, while awaiting placement by conservator. Addendum: 01/22/20 at 0421 by Marcelo Galvez RN Pt was resistant to sleeping, walked halls most of the night, periodically having outbursts.
[2020-01-22] MEDS: acetaminophen 325mg tablet PO PRN (01:40)
[2020-01-22] MEDS: benztropine 1mg tablet PO PRN ×2 (04:18→21:26)
[2020-01-22 07:30] VITALS: BP 119/61
[2020-01-22] MEDS: mineral oil/petrolatum, white cream 113gm jar TP SCH ×2 (08:00→20:00)
[2020-01-22] MEDS: QUEtiapine 25mg tablet PO SCH ×3 (11:31→20:02)
[2020-01-22] MEDS: quetiapine 100mg tablet PO SCH ×3 (11:31→20:02)
[2020-01-22] MEDS: LORazepam 1 MG tablet PO SCH ×4 (11:31→20:02)
[2020-01-22] MEDS: lithium carbonate 150mg capsule PO SCH ×3 (11:31→20:03)
[2020-01-22] MEDS: propranolol 10mg tablet PO SCH ×3 (11:32→20:02)
[2020-01-22] MEDS: divalproex sod 250mg ER (24-hour) tablet PO SCH ×3 (11:32→17:35)
[2020-01-22] MEDS: busPIRone 5mg tablet PO SCH ×3 (11:32→20:02)
[2020-01-22] MEDS: NICOTINE POLACRILEX 2 MG LOZENGE BC PRN ×2 (15:49→18:57)
--- NOTE | 2020-01-22 18:06 | NUR ---
Nursing Progress Note Legal hold: T-Con Client on involuntary status for GD Report received from Hannah MARX with use of SBAR Why are they here: Pt admitted to [place] for [facility] health on a 5150 for gravely disabled. Pt has been unable to care for himself. He is unable to verbalize a viable plan for food, clothing, and mcc. Pt is responding to internal stimuli. Pt repeatedly comes to the [facility] begging for food with significant weight loss.. Pt unable to manage finances and is disheveled and unkempt. Pt has history of schizophrenia and bipolar. Assessment What has happened this shift: Pt. is on LOS. Pt. asleep at start of shift. RN informed that pt. did not sleep last night. RN did not wake pt. up for breakfast or medication. Pt. awoke at 11am and given AM medications and then fell back asleep. Pt. slept until 1400 and given 1300 medications late. Pt. called his conservator and became agitated, cursing loudly. RN spoke with pt. and pt. became tearful, stating, "I hate my conservator... I just want to go home". Pt.'s mood improved and pt. pacing halls, rapping, listening to headphones, and joking with staff and peers. At dinner time, pt. became agitated, yelling curse words because he wanted to eat in his room and did not have a chair that was comfortable. Pt. was redirectable. S/I, H/I: Pt denies A/VH: Pt denies Sleep: Pt. slept from start of shift until 1400. ADL's: Independent with prompting from staff. Group attendance: No Were meds taken: Yes Any med S/E: None reported or observed. Mental Status Exam Appearance: Overweight, disheveled, wearing clean T-shirt, jeans, and shoes. Eye contact: Good Behavior: Asleep until 1400. Awoke agitated then became tearful, but quickly became pleasant and redirectable. Speech: Clear, audible Mood: Good Affect: Friendly Thought process: Linear Thought Content: Fixates on talking with conservator and being discharged. Cognition: A&O x 3, disoriented to situation. Insight: Poor Judgment: Poor Interventions PRN's used: Therapeutic interventions: 1:1 assessment, therapeutic communication, active listening, medication administration/education/monitoring. Behavior monitoring and intervention as needed; limit setting, redirection, positive reinforcement, continues on Line of Sight level of observation. Restraints/seclusion/emergency medication: N/A Justification of Continued Inpatient Treatment: Pt. continues to requires a safe and supportive environment, medication adjustments, behavioral management, while awaiting placement by conservator.
[2020-01-22] MEDS ORDERED: benzocaine/menthol oral lozeng 1 EACH BOX MM PRN (18:35)
[2020-01-22] MEDS: traZODone 50mg tablet PO SCH (19:57)
[2020-01-22 20:46] VITALS: BP 126/83
[2020-01-22] MEDS ORDERED: traZODone 50mg tablet PO ONE (21:25)
[2020-01-22] MEDS: LORazepam 1 MG tablet PO PRN (21:25)
[2020-01-22] MEDS: haloperidol 5mg tablet PO PRN (22:16)
[2020-01-22] MEDS: diphenhydrAMINE 25mg capsule PO PRN (22:16)
[2020-01-22] MEDS ORDERED: OLANZapine **IM** 10 mg inj. IM ONE ×2 (22:52→22:55)
--- NOTE | 2020-01-23 02:28 | NUR ---
Nursing Progress Note: [facility] Legal hold: T-Con Client on involuntary status for GD Report received from FRANCISCO J Ferro with use of SBAR Why are they here: Pt admitted to [place] for Behavioral health on a 5150 for gravely disabled. Pt has been unable to care for himself. He is unable to verbalize a viable plan for food, clothing, and mcc. Pt is responding to internal stimuli. Pt repeatedly comes to the [facility] begging for food with significant weight loss. Pt unable to manage finances and is disheveled and unkempt. Pt has history of schizophrenia and bipolar. Assessment What has happened this shift: Pt was active on the unit all evening, socializing and singing. Pt was happy to be able to help clean up the group room. He swept and wiped down tables before snack time. pt continues to be labile, and is demanding for snacks, and when denied he will have a verbal outburst. Pt was cooperative for 1:1, denying having any complaints. Later in the evening pt became increasingly agitated about having snacks limited after repeatedly asking for additional snacks. Pt repeatedly punched his bedroom door and boyd and threatened to "break my windows out." Dr. Armstrong consulted, verbal order for 10 mg zyprexa IM. Security called to assist as pt did not want an injection. Pt was cooperative for injection but sobbed for 10 minutes. Pt continued to walk the halls periodically, sometimes asking for more snacks. S/I, H/I: Denies A/VH: Denies Sleep: See sleep assessment ADL's: Requires direction from staff Group attendance: N/A Were meds taken: Yes Any med S/E: None Mental Status Exam Appearance: unkempt, dirty clothes Eye contact: Fair Behavior: Cooperative but impulsive Speech: Soft, slurred Mood: Labile Affect: Blunted Thought process: Poverty of thought Thought Content: restlessness Cognition: A&O X3 Insight: Poor Judgment: Poor Interventions PRN's used: trazadone, haldol, ativan, benadryl, zyprexa Therapeutic interventions: Introduced self and attempted to establish rapport, ensured contract for safety, maintained a safe and therapeutic environment, provided clear and simple instructions, attempted to orient to reality, monitored behaviors and need for intervention, provided redirection as needed, and maintained close observation per safety precautions. Restraints/seclusion/emergency medication: N/A
[2020-01-23 08:00] VITALS: BP 123/74
[2020-01-23] MEDS: mineral oil/petrolatum, white cream 113gm jar TP SCH ×2 (08:00→20:10)
[2020-01-23] MEDS: divalproex sod 250mg ER (24-hour) tablet PO SCH ×3 (08:57→17:08)
[2020-01-23] MEDS: lithium carbonate 150mg capsule PO SCH ×3 (08:57→20:02)
[2020-01-23] MEDS: LORazepam 1 MG tablet PO SCH ×4 (08:57→20:01)
[2020-01-23] MEDS: busPIRone 5mg tablet PO SCH ×3 (08:57→20:02)
[2020-01-23] MEDS: propranolol 10mg tablet PO SCH ×3 (08:57→20:01)
[2020-01-23] MEDS: quetiapine 100mg tablet PO SCH ×3 (08:58→21:00)
[2020-01-23] MEDS: QUEtiapine 25mg tablet PO SCH ×3 (08:58→20:02)
--- NOTE | 2020-01-23 12:02 | NUR ---
SS completed ABAS-3 Rating Scale in preparation for additional psych testing for pt. Sheridan Obrien, POULTRY SCIENTIST Addendum: 01/23/20 at 1203 by Sheridan Obrien Amended: Links added.
[2020-01-23] MEDS: NICOTINE POLACRILEX 2 MG LOZENGE BC PRN ×3 (13:54→19:19)
--- NOTE | 2020-01-23 17:33 | NUR ---
Nursing Progress Note Legal hold: T-Con Client on involuntary status for GD Report received from RN with use of SBAR Why are they here: Pt admitted to [place] for [facility] health on a 5150 for gravely disabled. Pt has been unable to care for himself. He is unable to verbalize a viable plan for food, clothing, and alf. Pt is responding to internal stimuli. Pt repeatedly comes to the [facility] [facility] begging for food with significant weight loss.. Pt unable to manage finances and is disheveled and unkempt. Pt has history of schizophrenia and bipolar. Assessment What has happened this shift: Received Pt on LOS observation and sleeping in bed w/o distress, with line of sight staff sitting right at door, at change of shift. Patient woke for vitals and returned to sleep. Awoke Pt for AM meds and he returned to sleep. He slept late and ate breakfast, which was saved for him, in his room. Pt socialized with staff and other Pts appropriately, with moments of reminding about boundaries. Used headphones, singing and pacing to pass time and release energy. Pt ruminated less on snacks and drinks today. S/I, H/I: Denies A/VH: Denies Sleep: Pt napped in AM ADL's: Requires direction from staff Group attendance: No Were meds taken: Yes Any med S/E: None Mental Status Exam Appearance: Casual in street clothes Eye contact: Fair, intense gaze when irritated Behavior: Cooperative at times, agitated, easily angered Speech: Varies between soft and aggressively shouting Mood: Labile, reactive Affect: Labile Thought process: Poverty of thought Thought Content: Preoccupation with food and snacks and drinks Cognition: A&O X3 Insight: Poor Judgment: Poor Interventions PRN's used: Kenny. Cookie. X2 Therapeutic interventions: Introduced self and attempted to establish rapport, ensured contract for safety, maintained a safe and therapeutic environment, provided clear and simple instructions, attempted to orient to reality, monitored behaviors and need for intervention, provided redirection as needed, and maintained close observation per safety precautions. Restraints/seclusion/emergency medication: N/A Justification of Continued Inpatient Treatment: Pt. continues to requires a safe and supportive environment, medication adjustments, behavioral management, while awaiting placement by conservator.
[2020-01-23 19:48] VITALS: BP 143/70
[2020-01-23] MEDS: traZODone 50mg tablet PO SCH (20:02)
[2020-01-23] MEDS: haloperidol 5mg tablet PO PRN (22:31)
[2020-01-23] MEDS: LORazepam 1 MG tablet PO PRN (22:31)
[2020-01-24] MEDS: diphenhydrAMINE 25mg capsule PO PRN ×3 (00:23→21:25)
--- NOTE | 2020-01-24 02:35 | NUR ---
Nursing Progress Note Legal hold: T-Con Client on involuntary status for GD Report received from RN with use of SBAR Why are they here: Pt admitted to [place] for [facility] health on a 5150 for gravely disabled. Pt has been unable to care for himself. He is unable to verbalize a viable plan for food, clothing, and group home. Pt is responding to internal stimuli. Pt repeatedly comes to the [place] [facility] begging for food with significant weight loss.. Pt unable to manage finances and is disheveled and unkempt. Pt has history of schizophrenia and bipolar. Assessment What has happened this shift: Pt pacing the halls at start of shift. Continues on LOS, At times becoming loud but pleasant and cooperative. Had to be reminded about boundaries for hugging female Pt. Pt given multiple snacks per request. When staff refused to give pt anymore snacks pt yelled out. Pt became angry said "I should be able to leave here" and "I'M going to call the police and have this whole place shut down." Took HS meds without incident. Over several hours multiple requests for snack becoming agitated and angry when denied. Pt remained agitated pacing up and down halls. Given PRN Ativan, Haldol and Benadryl. Finally went to sleep about 0200. S/I, H/I: Denies A/VH: Denies Sleep:Asleep at this time ADL's: Requires direction from staff Group attendance: NA Were meds taken: Yes Any med S/E: None Mental Status Exam Appearance: Casual in street clothes Eye contact: Fair, intense gaze when irritated Behavior: Cooperative at times, agitated, easily angered Speech: Varies between soft and aggressively shouting Mood: Labile, reactive Affect: Labile Thought process: Poverty of thought Thought Content: Preoccupation with food and snacks and drinks Cognition: A&O X3 Insight: Poor Judgment: Poor Interventions PRN's used: Nicotine Ativan Haldol Benadryl Therapeutic interventions: Introduced self and attempted to establish rapport, ensured contract for safety, maintained a safe and therapeutic environment, provided clear and simple instructions, attempted to orient to reality, monitored behaviors and need for intervention, provided redirection as needed, and maintained close observation per safety precautions. Restraints/seclusion/emergency medication: N/A Justification of Continued Inpatient Treatment: Pt. continues to requires a safe and supportive environment, medication adjustments, behavioral management, while awaiting placement by conservator.
[2020-01-24 07:31] VITALS: BP 112/64
[2020-01-24] MEDS: mineral oil/petrolatum, white cream 113gm jar TP SCH ×2 (08:00→20:15)
[2020-01-24] MEDS: propranolol 10mg tablet PO SCH ×3 (08:52→20:03)
[2020-01-24] MEDS: quetiapine 100mg tablet PO SCH ×3 (08:53→20:03)
[2020-01-24] MEDS: QUEtiapine 25mg tablet PO SCH ×3 (08:53→20:04)
[2020-01-24] MEDS: LORazepam 1 MG tablet PO SCH ×4 (08:54→20:04)
[2020-01-24] MEDS: busPIRone 5mg tablet PO SCH ×3 (08:54→20:04)
[2020-01-24] MEDS: divalproex sod 250mg ER (24-hour) tablet PO SCH ×3 (08:54→17:12)
[2020-01-24] MEDS: lithium carbonate 150mg capsule PO SCH ×3 (08:55→20:04)
[2020-01-24] MEDS: LORazepam 1 MG tablet PO PRN (16:24)
[2020-01-24] MEDS: haloperidol 5mg tablet PO PRN (16:24)
[2020-01-24] MEDS: benztropine 1mg tablet PO PRN (16:25)
[2020-01-24] MEDS: NICOTINE POLACRILEX 2 MG LOZENGE BC PRN (16:59)
--- NOTE | 2020-01-24 17:51 | NUR ---
Nursing Progress Note Legal hold: T-Con Client on involuntary status for GD Report received from Yanni Her RN with use of SBAR Why are they here: Pt admitted to [place] for [facility] health on a 5150 for gravely disabled. Pt has been unable to care for himself. He is unable to verbalize a viable plan for food, clothing, and mcfp. Pt is responding to internal stimuli. Pt repeatedly comes to the [facility] [facility] begging for food with significant weight loss.. Pt unable to manage finances and is disheveled and unkempt. Pt has history of schizophrenia and bipolar. Assessment What has happened this shift: Pt. is on LOS. Pt. awake for breakfast and medications then went back to sleep. Pt. slept until 11:00 had snack and paced in the halls. Pt. easily agitated when not given the snacks he wants, states, "I want out of this place!" Pt. then went back to sleep. Pt. awoke for lunch and took afternoon meds. Pt. c/o not getting enough food. Pt. paced halls and then went back to sleep. Pt. awoke at 1500 and was angry, loudly yelling curse words in the hallway and c/o that he was hungry and did not get his lunch tray. Pt. reminded that he did eat lunch and breakfast. Pt. given a snack. Pt. pacing in the halls with headphones. Pt. more social in the afternoon, seen dancing to music in rec room. At dinner time pt. ate 1/2 of his dinner only, pt. states, "I couldn't eat the rest because it was giving me a headache". Pt. went to go lay down, however, shortly after pt. was up and laughing and joking with peers and staff, rapping loudly in the hallway. Labs ordered for 01/24 AM: Valproic acid, [place], CBC, CMP, Lipid panel. S/I, H/I: Denies A/VH: Denies Sleep: Pt napped in AM and part of the afternoon. ADL's: Independent with prompting from staff Group attendance: No Were meds taken: Yes Any med S/E: Denies Mental Status Exam Appearance: Casual in street clothes Eye contact: WNL Behavior: Asking for food. Sleeping. Speech: Quiet with a few outbursts of cursing. Mood: Labile, reactive Affect: Congruent with moood Thought process: Poverty of thought Thought Content: Preoccupation with food and snacks and drinks Cognition: A&O X3 Insight: Poor Judgment: Poor Interventions PRN's used: None Therapeutic interventions: Introduced self and attempted to establish rapport, ensured contract for safety, maintained a safe and therapeutic environment, provided clear and simple instructions, attempted to orient to reality, monitored behaviors and need for intervention, provided redirection as needed, and maintained close observation per safety precautions. Restraints/seclusion/emergency medication: N/A Justification of Continued Inpatient Treatment: Pt. continues to requires a safe and supportive environment, medication adjustments, behavioral management, while awaiting placement by conservator.
[2020-01-24 19:52] VITALS: BP 130/64
[2020-01-24] MEDS: traZODone 50mg tablet PO SCH (20:03)
[2020-01-24] MEDS: acetaminophen 325mg tablet PO PRN (21:55)
--- NOTE | 2020-01-25 01:15 | NUR ---
Nursing Progress Note Legal hold: T-Con Client on involuntary status for GD Report received from RN with use of SBAR Why are they here: Pt admitted to [place] for [facility] health on a 5150 for gravely disabled. Pt has been unable to care for himself. He is unable to verbalize a viable plan for food, clothing, and care home. Pt is responding to internal stimuli. Pt repeatedly comes to the [facility] begging for food with significant weight loss.. Pt unable to manage finances and is disheveled and unkempt. Pt has history of schizophrenia and bipolar. Assessment What has happened this shift: Pt on LOS pacing in halls at start of shift. only one loud outburst this shift. At 1930 told he would have to wait for medications untill 20:00 Pt went down lee to room yelling "I hate the fucking world" Usual mutiple requests for snacks after he had already eaten a large amount. When told no pt was argumentative but did not became loud and verbally abusive. Took HS meds without incident. Went to sleep about 24:00 sleeping at this time. S/I, H/I: Denies A/VH: Denies Sleep:Asleep at this time ADL's: Requires direction from staff Group attendance: NA Were meds taken: Yes Any med S/E: None Mental Status Exam Appearance: Casual in street clothes Eye contact: Fair, intense gaze when irritated Behavior: Cooperative at times, agitated, easily angered Speech: Varies between soft and aggressively shouting Mood: Labile, reactive Affect: Labile Thought process: Poverty of thought Thought Content: Preoccupation with food and snacks and drinks Cognition: A&O X3 Insight: Poor Judgment: Poor Interventions PRN's used: Nicotine Benadryl Therapeutic interventions: Introduced self and attempted to establish rapport, ensured contract for safety, maintained a safe and therapeutic environment, provided clear and simple instructions, attempted to orient to reality, monitored behaviors and need for intervention, provided redirection as needed, and maintained close observation per safety precautions. Restraints/seclusion/emergency medication: N/A Justification of Continued Inpatient Treatment: Pt. continues to requires a safe and supportive environment, medication adjustments, behavioral management, while awaiting placement by conservator.
[2020-01-25 07:26] LABS: BASOPHILS % (AUTO) 0.2 % (0-1); EOSINOPHILS # (AUTO) 0.4 X10'3 (0-0.9); EOSINOPHILS % (AUTO) 3.5 % (0-6); HEMATOCRIT 41.6 % (42.0-52.0); HEMOGLOBIN 14.1 g/dl (14.0-17.9); LYMPHOCYTES # (AUTO) 4.2 X10'3 (1.1-4.8); LYMPHOCYTES % (AUTO) 36.9 % (21-51); MEAN CORPUSCULAR HEMOGLOBIN 31.8 PG (27.0-31.0); MEAN CORPUSCULAR HGB CONC 33.9 g/dL (33.0-36.5); MEAN CORPUSCULAR VOLUME 93.7 FL (78-98); MEAN PLATELET VOLUME 6.6 FL (7.4-10.4); MONOCYTES # (AUTO) 0.7 X10'3 (0-0.9); MONOCYTES % (AUTO) 6.2 % (2-12); NEUTROPHILS # (AUTO) 6.1 X10'3 (1.8-7.7); NEUTROPHILS % (AUTO) 53.2 % (42-75); PLATELET COUNT 235 X10'3 (140-440); RED BLOOD COUNT 4.44 X10'6 (4.70-6.10); RED CELL DISTRIBUTION WIDTH 13.3 % (11.5-14.5); WHITE BLOOD COUNT 11.5 X10'3 (4.5-11.0)
[2020-01-25 07:43] VITALS: BP 106/67
[2020-01-25] MEDS: mineral oil/petrolatum, white cream 113gm jar TP SCH ×2 (08:00→20:10)
[2020-01-25 08:20] LABS: TOTAL CELLS COUNTED 100
[2020-01-25 08:21] LABS: PLATELET ESTIMATE NORMAL
[2020-01-25] MEDS: QUEtiapine 25mg tablet PO SCH ×3 (08:53→20:12)
[2020-01-25] MEDS: quetiapine 100mg tablet PO SCH ×3 (08:53→20:11)
[2020-01-25] MEDS: LORazepam 1 MG tablet PO SCH ×4 (08:53→20:10)
[2020-01-25] MEDS: propranolol 10mg tablet PO SCH ×3 (08:53→20:11)
[2020-01-25] MEDS: lithium carbonate 150mg capsule PO SCH ×3 (08:54→20:11)
[2020-01-25] MEDS: divalproex sod 250mg ER (24-hour) tablet PO SCH ×3 (08:54→17:14)
[2020-01-25] MEDS: busPIRone 5mg tablet PO SCH ×3 (08:54→20:10)
[2020-01-25 09:47] LABS: ALANINE AMINOTRANSFERASE 12 U/L (12-78); ALBUMIN 3.5 G/DL (3.4-5.0); ALBUMIN/GLOBULIN RATIO 1.1 (1.1-1.5); ALKALINE PHOSPHATASE 56 IU/L (46-116); ANION GAP 4 (8-16); ASPARTATE AMINO TRANSFERASE 10 U/L (10-37); BILIRUBIN,TOTAL 0.4 MG/DL (0.1-1.0); BLOOD UREA NITROGEN 17 MG/DL (7-18); CALCIUM 8.7 MG/DL (8.5-10.1); CHLORIDE 105 MMOL/L (99-107); CHOL/HDL RATIO 2.5 (0.00-4.99); CHOLESTEROL 128 MG/DL (0-200); CREATININE 0.81 MG/DL (0.60-1.10); GLUCOSE 89 MG/DL (70-104); HDL CHOLESTEROL 51 MG/DL (35-60); LDL CHOLESTEROL 71 MG/DL (50-100); POTASSIUM 4.1 MMOL/L (3.5-5.1); SODIUM 140 MMOL/L (135-145); TOTAL CARBON DIOXIDE 31.4 MMOL/L (24-32); TOTAL PROTEIN 6.6 G/DL (6.4-8.2); TRIGLYCERIDES 40 MG/DL (20-135); VALPROATE 73 UG/ML (50-100); eGFR > 90 ML/MIN
[2020-01-25] MEDS: NICOTINE POLACRILEX 2 MG LOZENGE BC PRN ×2 (13:53→16:07)
[2020-01-25] MEDS: benztropine 1mg tablet PO PRN (14:37)
[2020-01-25] MEDS: haloperidol 5mg tablet PO PRN ×2 (14:37→21:29)
[2020-01-25] MEDS: diphenhydrAMINE 25mg capsule PO PRN ×2 (14:37→21:29)
[2020-01-25] MEDS: LORazepam 1 MG tablet PO PRN ×2 (14:37→21:31)
--- NOTE | 2020-01-25 15:15 | NUR ---
CM-Continuity of Care Presenting Issues: Pt received additional psych testing to explore his eligibility for [facility] services. Interventions: SS met w/Dr. Salcedo, PhD following her session w/pt per consult, Dr. Salcedo will complete her report and provide the following recommendations: [facility] referral Placement options that would benefit pt. Plan: SS will continue to provide support to pt and communicate w/[facility], and pt's sister re dcp. Sheridan Obrien LCSW Addendum: 01/26/20 at 0910 by Sheridan Obrien Amended: Links added.
[2020-01-25] MEDS: acetaminophen 325mg tablet PO PRN (16:10)
--- NOTE | 2020-01-25 17:41 | NUR ---
Nursing Progress Note Legal hold: T-Con Client on involuntary status for GD Report received from Yanni Her RN with use of SBAR Why are they here: Pt admitted to [place] for [facility] health on a 5150 for gravely disabled. Pt has been unable to care for himself. He is unable to verbalize a viable plan for food, clothing, and long-term. Pt is responding to internal stimuli. Pt repeatedly comes to the [facility] begging for food with significant weight loss.. Pt unable to manage finances and is disheveled and unkempt. Pt has history of schizophrenia and bipolar. Assessment What has happened this shift: Pt. is on LOS. Pt. had labs drawn, VA and lithium levels within range. Pt. awake for breakfast and medications then went back to sleep. Pt. woken up at 1200 to be assessed by psychologist. Pt. ate breakfast and took afternoon medications. Pt. pacing halls, listening to music, and generally in a good mood. 1:1 done at bedside, pt. denies SI/HI, A/V hallucinations. Pt. states, "I want to leave". Pt. seen often in halls pacing, listening to headphones, rapping, and playful with pt.'s and staff. In the aftenroon pt. requested PRN for anxiety and received Ativan 2mg, Haldol 5mg, Benadryl 50mg, and Cogentin 0.5mg with good effect. Pt. later requested PRN for head and back pain. Pt. received Tylenol 650mg and Zanaflex 4mg with good effect. Pt. started to bang on his window and needed to be redirected. Pt. appears bored and asks RN, "Do you have anything for me?". S/I, H/I: Denies A/VH: Denies Sleep: Pt. napped most of the morning. ADL's: Independent with prompting from staff Group attendance: No Were meds taken: Yes Any med S/E: Denies Mental Status Exam Appearance: Casual in street clothes Eye contact: WNL Behavior: Pt. seen often in halls pacing, listening to headphones, rapping, and playful with pt.'s and staff. Speech: Quiet with a few outbursts of cursing Mood: Labile, Explosive, depressed, anxious Affect: Congruent with mood Thought process: Poverty of thought Thought Content: Preoccupation with food and snacks and drinks Cognition: A&O X3 Insight: Poor Judgment: Poor Interventions PRN's used: AtivanElel Haldol, Jose L, Ativan, Haldol Therapeutic interventions: Introduced self and attempted to establish rapport, ensured contract for safety, maintained a safe and therapeutic environment, provided clear and simple instructions, attempted to orient to reality, monitored behaviors and need for intervention, provided redirection as needed, and maintained close observation per safety precautions. Restraints/seclusion/emergency medication: N/A Justification of Continued Inpatient Treatment: Pt. continues to requires a safe and supportive environment, medication adjustments, behavioral management, while awaiting placement by conservator.
[2020-01-25] MEDS: traZODone 50mg tablet PO SCH (20:10)
[2020-01-25 20:53] VITALS: BP 139/84
--- NOTE | 2020-01-26 02:33 | NUR ---
Nursing Progress Note Legal hold: T-Con Client on involuntary status for GD Report received from FRANCISCO J Ferro with use of SBAR Why are they here: Pt admitted to [place] for Behavioral health on a 5150 for gravely disabled. Pt has been unable to care for himself. He is unable to verbalize a viable plan for food, clothing, and retirement. Pt is responding to internal stimuli. Pt repeatedly comes to the [facility] begging for food with significant weight loss.. Pt unable to manage finances and is disheveled and unkempt. Pt has history of schizophrenia and bipolar. Assessment What has happened this shift: The patient came to observation room for 1:1 assessment. He reports that he had a good day, "I'm just really bored, there is nothing to do." Asked him what he would like us to do to make him less bored, "I don't know, I just need to get out of here. I feel like I'm being starved. I'm hungry all the time, but nobody will help me." The patient made no outbursts, even though he was told multiple times 'no' to more food. He used headphones to calm himself while pacing. He was compliant with HS meds, but was still awake ~2130. he said he was starting to feel anger coming on and requested oral B52. The patient was asleep soon after. S/I, H/I: Denies A/VH: Denies Sleep: See sleep assessment ADL's: Independent, but requires prompting Group attendance: N/A Were meds taken: Yes Any med S/E: None reported or observed Mental Status Exam Appearance: Disheveled, large man with his belly hanging out of his dirty shirt Eye contact: Fair, intense gaze when irritated Behavior: Cooperative, irritable, impulsive, labile, easily angered Speech: Normal, loud when angered. Mood: Labile, reactive Affect: Blunted Thought process: Poverty of thought Thought Content: Preoccupation with food and snacks and drinks Cognition: A&O X3 Insight: Poor Judgment: Poor Interventions PRN's used: Nicotine, Ativan, Haldol, Benadryl Therapeutic interventions: Introduced self and attempted to establish rapport, ensured contract for safety, maintained a safe and therapeutic environment, provided clear and simple instructions, attempted to orient to reality, monitored behaviors and need for intervention, provided redirection as needed, and maintained close observation per safety precautions. Restraints/seclusion/emergency medication: N/A Justification of Continued Inpatient Treatment: Pt. continues to requires a safe and supportive environment, medication adjustments, behavioral management, while awaiting placement by conservator.
[2020-01-26 07:30] VITALS: BP 144/91
[2020-01-26] MEDS: mineral oil/petrolatum, white cream 113gm jar TP SCH ×2 (08:00→20:19)
[2020-01-26] MEDS: divalproex sod 250mg ER (24-hour) tablet PO SCH ×3 (08:56→17:27)
[2020-01-26] MEDS: quetiapine 100mg tablet PO SCH ×3 (08:57→20:19)
[2020-01-26] MEDS: QUEtiapine 25mg tablet PO SCH ×3 (08:58→20:20)
[2020-01-26] MEDS: busPIRone 5mg tablet PO SCH ×3 (08:58→20:19)
[2020-01-26] MEDS: lithium carbonate 150mg capsule PO SCH ×3 (08:58→20:19)
[2020-01-26] MEDS: propranolol 10mg tablet PO SCH ×3 (08:59→20:19)
[2020-01-26] MEDS: LORazepam 1 MG tablet PO SCH ×4 (08:59→20:20)
--- NOTE | 2020-01-26 10:00 | NUR ---
Group Therapy: Process Group This Clinicians goals for this process group were as follows: (1) Ask scaling questions about Patients current anxiety, depression, and irritability symptoms as a check-in. (2) Share psychoeducation about the importance of being able to identify regular activities, support people, and thoughts (Anchors) that contribute to mental health well-being and stability. (3) Share psychoeducation about how the gradual removal of said activities, people and behaviors may lead to the erosion of mental well-being and stability. (4) Encourage patients to identify support anchors that they need to maintain in their lives that will promote their mental and emotional well-being. (5) Engage Patients in discussion of the topics shared within the group milieu. Patient presented as properly oriented to person, place, and situation during the process group. Patient was dressed in nondescript, personal clothing that were appropriate within the milieu. Psychomotor activity was unremarkable. Patient wore head phones and was followed by milieu staff to monitor Patient's behavior. Patient entered the group milieu approximately three time during the process group. On one such occasion, he sat in the back of the process group. This Clinician asked Patient activities or interventions that he could use to stay emotionally grounded and calm. Patient shared some positive memories of times that he had spent with his family in the past. Patient left the group milieu shortly after this Clinician asked him about grounding interventions he has used He was followed out of the process group by milieu staff. This Clinician did not observe Patient responding to any internal stimuli during session. The rate, latency, and tone of Patients speech was within normal limits. Patient maintained infrequent eye contact with this Clinician. Patient presented in calm euthymic mood, with congruent affect during the process group. Patient presented as cooperative, verbally subdued and nonobtrusive within the group milieu. Keegan Ochoa MA, KAROL Addendum: 01/27/20 at 0821 by Keegan Ochoa Amended: Links added.
--- NOTE | 2020-01-26 12:00 | NUR ---
Reassessment: Pt continues with average 75-100% PO intake of meals with double protein TID meeting nutrient needs. LBM 01/25. No edema or wounds. No nutrition intervention warranted at this time. Will continue to follow. Recommendations: 1) Continue regular diet 2) Double eggs q breakfast, double meat BIDLD per diet order 3) Bowel care PRN 4) Scaled weights per rx Addendum: 01/26/20 at [address] Amended: Links added.
[2020-01-26] MEDS: LORazepam 1 MG tablet PO PRN ×2 (14:04→21:38)
[2020-01-26] MEDS: diphenhydrAMINE 25mg capsule PO PRN ×2 (14:04→21:38)
[2020-01-26] MEDS: benztropine 1mg tablet PO PRN (14:04)
[2020-01-26] MEDS: haloperidol 5mg tablet PO PRN ×2 (14:04→21:38)
[2020-01-26] MEDS: NICOTINE POLACRILEX 2 MG LOZENGE BC PRN ×3 (15:57→19:30)
--- NOTE | 2020-01-26 16:26 | NUR ---
Nursing Progress Note Legal hold: T-Con Client on involuntary status for GD Report received from Yanni Her RN with use of SBAR Why are they here: Pt admitted to [facility] for [facility] health on a 5150 for gravely disabled. Pt has been unable to care for himself. He is unable to verbalize a viable plan for food, clothing, and senior living. Pt is responding to internal stimuli. Pt repeatedly comes to the [facility] begging for food with significant weight loss.. Pt unable to manage finances and is disheveled and unkempt. Pt has history of schizophrenia and bipolar. Assessment What has happened this shift: Pt. is on LOS. Pt. slept until 9:30. Pt awoke for breakfast and took medications. After breakfast pt. listening to headphones. Pt. approaches this RN and states, Im feeling better today I have court tomorrow Im a bit nervous about that. 1:1 done at bedside, pt. denies SI/HI, A/V hallucinations. Pt. had a pen in his pocket. RN requested the pt. give the pen over. Pt. pulled pen out and broke it in half and yelled, get the out of my room. RN talked with pt. about his outbursts and pt. states, Im sorry. Pt. seen pacing the halls, being playful with peers, rapping, listening to headphones, and singing. Pt. has to be reminded about boundaries. Pt. had short outburst in the afternoon when he did not receive his coffee when he wanted to and when he was asked to lower his voice when he was rapping. RN able to redirect pt. S/I, H/I: Denies A/VH: Denies Sleep: Pt. napped most of the morning. ADL's: Independent with prompting from staff Group attendance: No Were meds taken: Yes Any med S/E: Denies Mental Status Exam Appearance: Casual in street clothes Eye contact: WNL Behavior: Pt. seen often in halls pacing, listening to headphones, rapping, and playful with pt.'s and staff. Speech: Quiet with a few outbursts of cursing Mood: Labile, Explosive, depressed, anxious Affect: Congruent with mood Thought process: Poverty of thought Thought Content: Preoccupation with food and snacks and drinks Cognition: A&O X3 Insight: Poor Judgment: Poor Interventions PRN's used: Ativan, Benadryl, Haldol, Cogentin x1 Therapeutic interventions: Introduced self and attempted to establish rapport, ensured contract for safety, maintained a safe and therapeutic environment, provided clear and simple instructions, attempted to orient to reality, monitored behaviors and need for intervention, provided redirection as needed, and maintained close observation per safety precautions. Restraints/seclusion/emergency medication: N/A Justification of Continued Inpatient Treatment: Pt. continues to requires a safe and supportive environment, medication adjustments, behavioral management, while awaiting placement by conservator.
[2020-01-26 20:00] VITALS: BP 130/78
[2020-01-26] MEDS: traZODone 50mg tablet PO SCH (20:19)
--- NOTE | 2020-01-27 01:51 | NUR ---
Nursing Progress Note Legal hold: T-Con Client on involuntary status for GD Report received from FRANCISCO J Ferro with use of SBAR Why are they here: Pt admitted to [facility] for [facility] on a 5150 for gravely disabled. Pt has been unable to care for himself. He is unable to verbalize a viable plan for food, clothing, and detention. Pt is responding to internal stimuli. Pt repeatedly comes to the [facility] begging for food with significant weight loss.. Pt unable to manage finances and is disheveled and unkempt. Pt has history of schizophrenia and bipolar. Assessment What has happened this shift: The patient was wandering the halls wearing headphones at shift change. He was happy, smiling, joking around. He still has problems with boundaries, and gets upset when asked to abide by them. The patient continues to say he is starving, and nobody will help him. When told 'no' he screams, " I hate you people, fuck you, fuck this place." He goes to his room, slams the door, and yells as loud as possible about all the injustices done to him. After he gets it out of his system, he comes out like nothing happened. Starts asking for food again. He was compliant with his medications, but had one more outburst for the night. He was given oral B52, which was effective. he was asleep soon after. S/I, H/I: Denies A/VH: Denies Sleep: See sleep assessment ADL's: Independent, but requires prompting Group attendance: N/A Were meds taken: Yes Any med S/E: None reported or observed Mental Status Exam Appearance: Disheveled, large man with his belly hanging out of his dirty shirt Eye contact: Fair, intense gaze when irritated Behavior: Cooperative, irritable, impulsive, labile, easily angered Speech: Normal, loud when angered. Mood: Labile, reactive Affect: Blunted Thought process: Poverty of thought Thought Content: Preoccupation with food and snacks and drinks Cognition: A&O X3 Insight: Poor Judgment: Poor Interventions PRN's used: Nicotine, Ativan, Haldol, Benadryl Therapeutic interventions: Introduced self and attempted to establish rapport, ensured contract for safety, maintained a safe and therapeutic environment, provided clear and simple instructions, attempted to orient to reality, monitored behaviors and need for intervention, provided redirection as needed, and maintained close observation per safety precautions. Restraints/seclusion/emergency medication: N/A Justification of Continued Inpatient Treatment: Pt. continues to requires a safe and supportive environment, medication adjustments, behavioral management, while awaiting placement by conservator.
[2020-01-27 08:00] VITALS: BP 139/91
[2020-01-27] MEDS: mineral oil/petrolatum, white cream 113gm jar TP SCH (08:00)
--- NOTE | 2020-01-27 08:10 | NUR ---
CM Presenting Issues: Pt's [facility] Hearing is this afternoon, pt appears anxious over it and worries about what the Court will decide. Interventions: SS met with pt provided 1:1 emotional support for pt to process the possible options available to the Court w/re to his [facility]. Per session pt was able to verbalize that he will be disappointed and angry if he does not get to leave but also worry about where he will go if he leaves here. Plan: Pt to attend hearing via video-conferencing. If pt is discharge from [facility], [facility] will send regional flatbed truck driver to pick him up & take him back to [facility]. Sheridan Obrien LCSW Addendum: 01/28/20 at 0815 by Sheridan DORADO Amended: Links added.
[2020-01-27] MEDS: propranolol 10mg tablet PO SCH ×2 (08:50→12:23)
[2020-01-27] MEDS: busPIRone 5mg tablet PO SCH ×2 (08:50→12:22)
[2020-01-27] MEDS: quetiapine 100mg tablet PO SCH ×2 (08:50→12:23)
[2020-01-27] MEDS: LORazepam 1 MG tablet PO SCH ×2 (08:50→12:22)
[2020-01-27] MEDS: divalproex sod 250mg ER (24-hour) tablet PO SCH ×2 (08:50→12:22)
[2020-01-27] MEDS: lithium carbonate 150mg capsule PO SCH ×2 (08:50→12:22)
[2020-01-27] MEDS: QUEtiapine 25mg tablet PO SCH ×2 (08:50→12:23)
[2020-01-27] MEDS: acetaminophen 325mg tablet PO PRN (12:30)
[2020-01-27] MEDS: NICOTINE POLACRILEX 2 MG LOZENGE BC PRN (12:35)
[2020-01-27] MEDS ORDERED: QUET300T19 PO (14:42)
[2020-01-27] MEDS ORDERED: PROP10TA10 PO (14:42)
[2020-01-27] MEDS ORDERED: QUET50TA PO (14:42)
[2020-01-27] MEDS ORDERED: HALO5TAB PO (14:42)
[2020-01-27] MEDS ORDERED: TRAZ-251 PO (14:42)
[2020-01-27] MEDS ORDERED: BENZ1TAB7 PO (14:42)
[2020-01-27] MEDS ORDERED: LITH150C8 PO (14:42)
[2020-01-27] MEDS ORDERED: DIVA250T8 PO (14:42)
--- NOTE | 2020-01-27 14:55 | NUR ---
DISCHARGE NOTE: Pt. discharged to home in [place]. Pt. driven by [facility] [employer] Analyst. F/U instructions and discharge medications discussed with pt. Pt. verbalizes understanding. Pt. verbalizes understanding that [facility] will f/u with him for f/u care. Pt. refused to have admission wound pictures retaken. Pt. discharged with all belongings. Pt. is anxious and agitated as he waits for his mail truck driver to come. repeatedly asking about his discharge and wanting to smoke a cigarette. Pt. Denies SI/HI, A/V hallucinations. Pt. refused nicotine replacement.
--- NOTE | 2020-01-27 16:15 | NUR ---
D/C Per court hearing, pt is discharged from [facility], [facility] was waiting for him in the parking lot. Pt is d/c to [facility], SS referral closed. Sheridan Obrien LCSW Addendum: 01/28/20 at 0817 by Sheridan Obrien Amended: Links added.
== END 2020-01-27 14:55 | disposition home or self-care (01) | DRG 753 ==
LOC: ADULT MH 11:07
PROVIDERS: ADMIT Psychiatry & Neurology Psychiatry; ATTEND Psychiatry & Neurology Psychiatry
DX: F31.13 Bipolar disorder, current episode manic without psychotic features, severe (principal); F17.210 Nicotine dependence, cigarettes, uncomplicated; F15.20 Other stimulant dependence, uncomplicated; E88.81 Metabolic syndrome and other insulin resistance; E66.9 Obesity, unspecified; K59.00 Constipation, unspecified; F12.20 Cannabis dependence, uncomplicated; G44.209 Tension-type headache, unspecified, not intractable; Z59.0 Homelessness; Z91.19 Patient's noncompliance with other medical treatment and regimen; Z88.8 Allergy status to other drugs, medicaments and biological substances; Z79.899 Other long term (current) drug therapy; Z68.37 Body mass index [BMI] 37.0-37.9, adult; Z71.6 Tobacco abuse counseling
CPT/HCPCS: 36415; 80053; 80061; 80164; 80178; 83036; 85007; 85025; 87081; 99285; J0515; J1200; J1630; J2060; J3490; Q0163

== ENCOUNTER 2020-10-20 13:10 | Emergency (ER) | payer MEDICAID ==
[~2020-10-20] VITALS: Ht 190.5 cm; Wt 105.8 kg
[~2020-10-20 13:10] MED LIST changes: -DIVA-81 PO; +DIVA250T8 PO; +HALO5TAB PO; -HYDR50CA5 PO; +LITH150C8 PO; +PROP10TA10 PO; +QUET300T19 PO; +QUET50TA PO; +TRAZ-251 PO
[2020-10-20 13:23] VITALS: BP 115/64
--- NOTE | 2020-10-20 15:43 | NUR ---
Attempted to call patient back to a room. Patient was not in lobby x3. Called patient at listed phone number and patient was unavailable and I was unable to leave a voicemail message. Dr. Marcio vail.
== END 2020-10-20 15:44 | disposition left against medical advice (07) ==
LOC: ER 13:10
DX: I49.8 Other specified cardiac arrhythmias (principal); Z53.21 Procedure and treatment not carried out due to patient leaving prior to being seen by health care provider
CPT/HCPCS: 93005

== ENCOUNTER 2021-10-03 09:19 | Emergency (ER) | payer MEDICAID ==
[~2021-10-03] VITALS: Ht 190.5 cm; Wt 97.7 kg
[~2021-10-03 09:19] MED LIST changes: -QUET300T19 PO; +QUET300T20 PO
[2021-10-03] MEDS ORDERED: normal saline 1000ML IV soln IVB ONE (09:35)
[2021-10-03 09:57] LABS: BASOPHILS % (AUTO) 0.5 % (0-1); EOSINOPHILS # (AUTO) 0.3 X10'3 (0-0.9); EOSINOPHILS % (AUTO) 4.7 % (0-6); HEMATOCRIT 41.4 % (42.0-52.0); HEMOGLOBIN 14.3 g/dl (14.0-17.9); LYMPHOCYTES # (AUTO) 2.6 X10'3 (1.1-4.8); LYMPHOCYTES % (AUTO) 46.8 % (21-51); MEAN CORPUSCULAR HEMOGLOBIN 30.9 PG (27.0-31.0); MEAN CORPUSCULAR HGB CONC 34.7 g/dL (33.0-36.5); MEAN CORPUSCULAR VOLUME 89.1 FL (78-98); MEAN PLATELET VOLUME 6.7 FL (7.4-10.4); MONOCYTES # (AUTO) 0.4 X10'3 (0-0.9); MONOCYTES % (AUTO) 6.7 % (2-12); NEUTROPHILS # (AUTO) 2.3 X10'3 (1.8-7.7); NEUTROPHILS % (AUTO) 41.3 % (42-75); PLATELET COUNT 186 X10'3 (140-440); RED BLOOD COUNT 4.64 X10'6 (4.70-6.10); RED CELL DISTRIBUTION WIDTH 13.8 % (11.5-14.5); WHITE BLOOD COUNT 5.7 X10'3 (4.5-11.0)
[2021-10-03 10:12] LABS: ANION GAP 7 (8-16); BLOOD UREA NITROGEN 6 MG/DL (7-18); BUN/CREATININE RATIO 7.7 (5.4-32.0); CALCIUM 8.5 MG/DL (8.5-10.1); CHLORIDE 96 MMOL/L (99-107); CREATININE 0.78 MG/DL (0.60-1.10); GLUCOSE 85 MG/DL (70-104); SODIUM 132 MMOL/L (135-145); eGFR > 90 ML/MIN
[2021-10-03 10:13] LABS: ALANINE AMINOTRANSFERASE 8 U/L (12-78); ALBUMIN/GLOBULIN RATIO 1.2 (1.1-1.5); ALKALINE PHOSPHATASE 58 IU/L (46-116); ASPARTATE AMINO TRANSFERASE 12 U/L (10-37); BILIRUBIN,TOTAL 0.3 MG/DL (0.1-1.0); CREATINE KINASE 105 U/L (39-308); ETHANOL < 0.010 GM/DL (0.0-0.010); TOTAL PROTEIN 7.3 G/DL (6.4-8.2)
[2021-10-03 10:22] LABS: LACTIC SEPSIS 1.1 MMOL/L (0.4-2.0)
[2021-10-03 10:33] VITALS: BP 126/81
== END 2021-10-03 11:28 ==
LOC: EEVIPCON 09:20 → ER 09:20
DX: E87.1 Hypo-osmolality and hyponatremia (principal); E86.0 Dehydration; F20.0 Paranoid schizophrenia; F12.10 Cannabis abuse, uncomplicated; Z56.0 Unemployment, unspecified
CPT/HCPCS: 36415; 70450; 71045; 80053; 80320; 82140; 82550; 82948; 83605; 83735; 85025; 87040; 96360; 99285; J7030